=== PATIENT | male | born 1960 | race Caucasian/White ===

== ENCOUNTER 2018-03-07 07:16 | Day surgery (SDC) | payer MEDICARE ==
[~2018-03-07] VITALS: Ht 195.6 cm; Wt 141.3 kg
[~2018-03-07 07:16] MED LIST: ACET325T38 PO; ALBU8.5H2 IH; APIX5TAB2 PO; ASP81TEC PO; ASPI-875 PO; B12 IM; BLOOD PRESSURE MED PO; BNZ10T PO; CEFP500T4 PO; CEPH500C PO; CYAN100053 IJ; CYAN500T44 PO; FENT50VI18 IV; FERR240T9 PO; FLT05NA16 NSEACH; FLT11013 IH; FLT4413 INH; HYDR-1231 PO; HYDR-3583 PO; HYDR1TAB PO; KCL20TCR PO; LORA10TA2 PO; MAGN400C PO; METH4TAB PO; NF-VAL40T PO; OSLT75C PO; OXYC-109 PO; POTA99TA15 PO; PRD50T PO; Potassium; RT-ALBUINH IH; SULF1TAB38 PO; TRM50T PO; VLS80C PO; [UNRECOGNIZED DRUG - CODE] SQ; [UNRECOGNIZED DRUG - CODE] SQ; [UNRECOGNIZED DRUG - OTHER] PO
[2018-03-07] MEDS ORDERED: LIDOCAINE 1% INJ 20 ML 20 ML VIAL ONE (07:18)
[2018-03-07 07:19] VITALS: BP 163/100
--- OUTSIDE RECORDS SUMMARY | 2018-03-07 07:51 | XMS REPORT | Encounter Summary ---
Author Author [facility] Organization [facility] Address Unknown Phone Unavailable Care Team Providers Care Pipe Stripper Name Role Phone Pedrito Dubois MD PCP Reason for Visit * Auth/Cert Status Reason Specialty Diagnoses / Referred By Referred To Procedures Contact Contact Diagnoses chest pain Chest pain Chest pain Encounter Details Date Type Department Care Team Description 02/01/2018 [facility] Amber Perla MD Hypertension, unspecified - Encounter Hospital [id number] [facility] type (Primary Dx); 02/02/2018 [address] [facility] [address] Chest pain on breathing; [place] [address] [place] [address] Other chest pain; [phone] Asymptomatic PVD (peripheral vascular disease) (HCC); Chronic anticoagulation; Chronic hypokalemia; History of DVT (deep vein thrombosis); Essential hypertension; Normocytic anemia; Pulmonary nodules; Venous insufficiency (chronic) (peripheral) Social History Tobacco Use Types Packs/Day Years Used Date Never Smoker Smokeless Tobacco: Never Used Alcohol Use Drinks/Week oz/Week Comments No Sex Assigned at Date Recorded Not on file as of this encounter Last Filed Vital Signs Vital Sign Reading Time Taken Blood Pressure 179/96 02/02/2018 12:05 PM RADIO DIRECTOR Pulse 95 02/02/2018 11:59 AM RADIO DIRECTOR Temperature 36.8 C (98.2 F) 02/02/2018 11:59 AM RADIO DIRECTOR Respiratory Rate 18 02/02/2018 11:59 AM RADIO DIRECTOR Oxygen Saturation 97% 02/02/2018 11:59 AM RADIO DIRECTOR Inhaled Oxygen - - Concentration Weight 149.7 kg (330 lb) 02/01/2018 4:42 AM RADIO DIRECTOR Height 200.7 cm (6' 7") 02/01/2018 4:42 AM RADIO DIRECTOR Body Mass Index 37.18 02/01/2018 4:42 AM RADIO DIRECTOR in this encounter Discharge Summaries * Marcela Brown FNP - 02/01/2018 4:04 PM RADIO DIRECTOR Formatting of this note may be different from the original. Cardiology Discharge Summary Admitting physician: Amber Perla MD Date of admission: 02/01/2018 PCP: Pedrito Dubois MD Date of discharge: 02/02/18 Chief complaint: CP HOSPITAL COURSE We are discharging Milind Jon from [facility] today. As you know, he is a 57 y.o. male with h/o recurrent DVT- prior stenting (16 procedures in the past), s/p IVC filter, on eliquis for this, Also he has h/o Crohn's with frequent diarrhea, chronic hypokalemia on potassium supplementation , s/p implantable loop recorder- for 3 years (no pathology), and heparin induced thrombocytopenia. He presented with CP. Around 10 pm while riding in a car, he developed mid back pain with radiation toward his chest and down his left arm. He described it as pressure and rated it 7/10. He was not SOA initially but felt somewhat SOA later. He thinks the CP was worse with body movement and with taking a deep breath. It has been constant. CTA chest was negative for central or segmental PE. The aorta was normal in caliber without evidence for dissection. Troponin <0.01, 0.02, 0.02. NTPROBNP 340. He received ASA initially and was given fentanyl 50 mcg X3, Dilaudid 0.5 mg X2 , nitro X3, IV toradol, ibuprofen, and tylenol at intervals during admission with no reported relief. He was hypokalemic and his potassium was supplemented. He stated he is physically active, remodeling a house and exercises with weights and on TM for 35 minutes without CP or SOA. He did exercise couple days ago and did not have CP or SOA then. 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 He reportedly had a cath a few years ago and did not require stents. An echocardiogram showed normal left ventricular size and systolic function, with an estimated ejection fraction of 60%, no significant valvular abnormalities. MPI demonstrated no ischemia and no regions of infarction, low normal LVEF at 49 % at rest, normal augmentation of LVEF to 54% with vasodilation stress, coronary artery calcium score of 6. He was noted to be hypertensive and cozaar was increased from 25 mg to 50 mg po daily. His BP was slightly improved on d/c and he was asked to monitor BP as OP. There was no cardiac or GI etiology of his discomfort. The hospitalist saw patient in consult and felt pain was musculoskeletal. Skelaxin was prescribed for OP use. Wound care rounded on patient and dressed left posterior calf venous ulcer. They provided recommendations for OP care and management, encouraging follow up with primary care and keeping scheduled OP appointment with vascular surgery. He was felt stable for discharge today. He was dismissed in the company of a friend. Principal Problem: Chest pain Active Problems: Asymptomatic PVD (peripheral vascular disease) ([facility]) Venous insufficiency (chronic) (peripheral) History of DVT (deep vein thrombosis) Chronic anticoagulation Normocytic anemia Chronic hypokalemia Pulmonary nodules Essential hypertension 1. Atypical CP - normal echo and non-ischemic MPI PET - continue ASA - LDL 33, TSH normal - consult hospitalist today due to ongoing pain of unclear etiology but suspect musculoskeletal; Hospitalist has prescribed skelaxin for OP use. - Pain is non-cardiac and not likely GI - will d/c today. 2. Venous insufficiency with venous ulcers - wound care consult appreciated - continue OP follow up with Dr Dubois in [facility] 3. H/o DVT, s/p IVC filter - continue Eliquis - CTA chest negative for PE 4. Normocytic anemia -baseline is unknown -outpatient f/u with PCP 5. Chronic Hypokalemia secondary to Crohn's disease - admission K 3.0 - K replaced - continue home replacement regimen 6. Pulmonary nodules - incidental finding on CTA chest - he denies smoking - defer to PCP for CT chest in one year/routine follow up 7. PVD - report of multiple LE stents - [place] [facility] [place]aud[place] 8. HTN - continue up-titrated losartan and keep BP diary - too early to see if improvement in BP since only received one dose of new strength IMAGING/PROCEDURES/LABS DURING THIS HOSPITALIZATION CTA chest 02/01/2018 There is adequate opacification of the pulmonary arteries. No central intravascular filling defects are appreciated. There is no evidence for central pulmonary embolus. The aorta is normal in caliber without evidence for dissection. The heart is normal in size without pericardial effusion. The visualized thyroid gland is within normal limits. No lymphadenopathy is seen. The central airways are patent. There is no focal consolidation, pleural effusion or pneumothorax. A few 3 mm or less lung nodules are noted, for example middle lobe lung nodule on image 95 series 5. Images of the upper abdomen demonstrate cholecystectomy clips. Degenerative changes are seen in the spine. IMPRESSION No evidence for central pulmonary embolus. A few 3 mm or less lung nodules are noted. According to the 2017 Fleischner Society Guidelines for Management of Incidental Pulmonary Nodules Detected on CT, for low risk patients (minimal or absent history of smoking or other known risk factors), non-calcified solid nodules less than or equal to 6 mm in diameter do not require routine follow up. If risk factors exist or the nodule has an upper lobe location, a follow up CT is optional in 12 months. If unchanged at that time, no further follow up is needed. A preliminary report which was provided by [employer] was Reviewed Echocardiogram Date: 02/01/2018 1. Normal left ventricular size and systolic function, with an estimated ejection fraction of 60%. 2. No significant valvular abnormalities. Stress test Date: 02/01/2018 No ischemia and no regions of infarction. Low normal LVEF at 49% at rest. Normal augmentation of LVEF to 54% with vasodilation stress. The coronary artery calcium score is 6. Results communicated verbally at time of dictation. [facility] laboratory findings during this hospitalization: Most Recent Result within the last 7 days Lab Units 02/02/18 0840 02/02/18 0120 02/01/18 1315 HEMOGLOBIN g/dL -- 9.8* -- -- HEMATOCRIT % -- 30* -- -- WBC TH/uL -- 3.72* -- -- PLATELET COUNT TH/uL -- 150 -- -- CREATININE mg/dL -- 0.9 -- -- BLOOD UREA NITROGEN mg/dL -- 14 -- -- POTASSIUM MEQ/L 3.6 3.5 < > -- THYROID STIMULATING HORMONE uIU/mL -- -- -- 1.10 CHOLESTEROL mg/dL -- -- -- 84* HDL CHOLESTEROL mg/dL -- -- -- 35* LDL CHOLESTEROL mg/dL -- -- -- 33 TRIGLYCERIDES mg/dL -- -- -- 80 < >=values in this interval not displayed. PHYSICAL EXAM BP (!) 155/80 (BP Location: Left arm, Patient Position: Supine) | Pulse 89 | Temp 36.4 C (97.6 F) (Oral) | Resp 18 | Ht 2.007 m (6' 7") | Wt (!) 149.7 kg (330 lb) | SpO2 95% | BMI 37.18 kg/m Physical Exam Constitutional: He is oriented to person, place, and time. He appears well- developed and well-nourished. Obese by BMI. HENT: Head: Normocephalic and atraumatic. Eyes: Conjunctivae are normal. Neck: Normal range of motion. Cardiovascular: Normal rate, regular rhythm, normal heart sounds and intact distal pulses. No murmur heard. Pulses: Dorsalis pedis pulses are 2+ on the right side, and 1+ on the left side. Pulmonary/Chest: Effort normal and breath sounds normal. He has no rales. Abdominal: Soft. There is no tenderness. Musculoskeletal: Normal range of motion. Neurological: He is alert and oriented to person, place, and time. Skin: Skin is warm and dry. No rash noted. Discoloration to lower legs consistent with venous insufficiency. Venous ulcer left lateral/posterior calf with dressing. Venous ulcer scabbed and dry anterior left LE. Psychiatric: He has a normal mood and affect. His behavior is normal. Nursing note and vitals reviewed. DISCHARGE INSTRUCTIONS Discharge medications: Medication List START taking these medications metaxalone 800 MG tablet Commonly known as: SKELAXIN 400 mg, Oral, 3 times daily PRN CHANGE how you take these medications losartan 25 MG tablet Commonly known as: COZAAR 50 mg, Oral, Daily What changed: how much to take CONTINUE taking these medications apixaban 5 mg tablet Commonly known as: ELIQUIS 5 mg, Oral, 2 times daily aspirin 81 MG EC tablet 81 mg, Oral, Daily KLOR-CON M20 20 MEQ tablet Generic drug: potassium chloride 40 mEq, Oral, 3 times daily with meals Where to Get Your Medications These [facility] [id number] [id number] Hours: Tuesday-Tuesday 9:00am-5:30pm metaxalone 800 MG tablet Information about where to get these medications is not yet available Ask your nurse or doctor about these medications losartan 25 MG tablet Condition at discharge: Stable Disposition: home Follow up: PCP in 1 week; 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 Cardiac rehabilitation ordered: Cardiac rehabilitiation was not appropriate for this patient and was not ordered. Discharge coordination time: Greater than 30 minutes. This patient is being discharged in collaboration with Dr. Susan Mims Treatment goals, progress and next steps, as above, were discussed and mutually agreed upon with the patient/family. We appreciate the opportunity to participate in this patient's care. Please do not hesitate to contact us at [phone] should you have any questions. ABHISHEK Peralta 02/02/2018 10:56 AM in this encounter Discharge Instructions * Discharge Instr - Other Orders - Bettie Arias RN - 02/02/2018 10: 13 AM RADIO DIRECTOR Please do not miss your appointment with Vascular surgery on 02/06/2018. in this encounter Medications at Time of Discharge Medication Sig. Disp. Refills Start Date End Date apixaban (ELIQUIS) 5 mg Take 5 mg by mouth 2 tabletIndications: (two) times a day. Treatment to Prevent Recurrence of a Clot in a Deep Vein aspirin 81 MG EC tablet Take 81 mg by mouth daily. losartan (COZAAR) 25 MG Take 2 tablets (50 mg 02/02/2018 tabletIndications: high total) by mouth daily. blood pressure metaxalone (SKELAXIN) 800 Take one-half tablets 10 tablet 0 2017 MG tablet (400 mg total) by mouth 3 (three) times a day as needed. potassium chloride Take 40 mEq by mouth 3 (KLOR-CON M20) 20 MEQ (three) times a day with tablet meals. as of this encounter Progress Notes * Mansi Ahmadi RN - 02/02/2018 12:09 PM RADIO DIRECTOR I walked into patient's room to discharge him and go over his paperwork. Patient was getting changed and walking around. I decided to check his BP which was high, waited a bit and rechecked it and it was still high. I asked patient if he could stay a bit longer to recheck his blood pressure. Patient decided to go home and said he would check it at home. His ride was waiting for him downstairs. I walked with patient downstairs to the car. Patient gait was stable. * Marcela Brown, ELECTRONICS TEACHER - 02/02/2018 8:58 AM RADIO DIRECTOR Formatting of this note may be different from the original. Cardiology Progress Note Hospital Day: 1 Chief complaint: chest pain Clinical summary: Mr. Good is a 57 year old patient with h/o recurrent DVT, s/ p IVC filter, on Eliquis, and PVD with hx of prior stenting (reportedly 16 procedures in the past). Also with Crohn's with frequent diarrhea, chronic hypokalemia on potassium supplementation, s/p implantable loop recorder- for 3 years (no pathology), and heparin induced thrombocytopenia. He follows cardiology in [facility]. C/o pressure chest pain while riding in a car, with radiation from mid back to chest and down left arm. Unrelieved with IV narcotics and NTG sl x 3. Admitted (transfer from [facility]) on 02/01/18. Chronic venous ulcer to [facility] which wound care has evaluated this admission. [facility] events during this stay: 02/01/18: Negative CTA chest for PE, negative serial troponin, normal NTproBNP. Non-ischemic MPI PET, echo with normal LVSF. Potassium replaced. 02/02/18: potassium in normal range. CHANGES IN THE PAST 24 HOURS: Clinical: Pain is constant, feels like pressure, location same as on arrival; unrelieved with IV narcotics, IV toradol, or tylenol. No provoking or alleviating factors. Slept well overnight but reports he was exhausted since he was up all night the previous night. Labs/tests/procedures: 02/02/18: K 3.6, creatinine 0.9; Hgb 9.8 (admission 10.7). 02/01/18: MPI PET COMBINED TEST RESULTS: No ischemia and no regions of infarction. Low normal LVEF at 49% at rest. Normal augmentation of LVEF to 54% with vasodilation stress. The coronary artery calcium score is 6. 02/01/18: Echocardiogram IMPRESSION 1. Normal left ventricular size and systolic function, with an estimated ejection fraction of 60%. 2. No significant valvular abnormalities. EKG/Telemetry: Normal Sinus Rhythm and Telemetry was personally reviewed ASSESSMENT & PLAN: Principal Problem: Chest pain Active Problems: Asymptomatic PVD (peripheral vascular disease) (HCC) Venous insufficiency (chronic) (peripheral) History of DVT (deep vein thrombosis) Chronic anticoagulation Normocytic anemia Chronic hypokalemia Pulmonary nodules 1. CP with some typical and atypical features - normal echo and non-ischemic MPI PET - continue ASA - LDL 33, TSH normal - consult hospitalist today due to ongoing pain of unclear etiology but suspect musculoskeletal; Hospitalist has prescribed skelaxin for OP use. - Pain is non-cardiac and not likely GI - will d/c today. 2. Venous insufficiency with venous ulcers - wound care consult appreciated - continue OP follow up with Dr Dubois in [facility] 3. H/o DVT, s/p IVC filter - continue Eliquis - CTA chest negative for PE 4. Normocytic anemia -baseline is unknown -outpatient f/u with PCP 5. Chronic Hypokalemia secondary to Crohn's disease - admission K 3.0 - K replaced - continue home replacement regimen 6. Pulmonary nodules - incidental finding on CTA chest - he denies smoking - defer to PCP for CT chest in one year/routine follow up 7. 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 He appears well- developed and well-nourished. Obese by BMI. HENT: Head: Normocephalic and atraumatic. Eyes: Conjunctivae are normal. Neck: Normal range of motion. Cardiovascular: Normal rate, regular rhythm, normal heart sounds and intact distal pulses. No murmur heard. Pulses: Radial pulses are 2+ on the right side, and 2+ on the left side. Dorsalis pedis pulses are 2+ on the right side, and 1+ on the left side. Pulmonary/Chest: Effort normal and breath sounds normal. Abdominal: Soft. There is no tenderness. Musculoskeletal: Normal range of motion. He exhibits edema. Neurological: He is alert and oriented to person, place, and time. He has normal strength. Skin: Skin is warm and dry. Discoloration to lower legs consistent with venous insufficiency. Venous ulcer left lateral/posterior calf with dressing. Venous ulcer scabbed and dry anterior left LE. Psychiatric: He has a normal mood and affect. His behavior is normal. Judgment and thought content normal. Nursing note and vitals reviewed. Scheduled medications: ammonium lactate Topical BID apixaban 5 mg Oral BID aspirin 81 mg Oral Daily losartan 50 mg Oral Daily pantoprazole 40 mg Oral BID AC Infusion medications: [facility] labs: Recent Labs 02/01/18 0027 02/02/18 0120 WBC 6.22 3.72* HGB 10.7* 9.8* HCT 33* 30* PLT 197 150 Recent Labs 02/01/18 0027 02/01/18 0715 02/01/18 1805 02/01/18 2239 02/02/18 0120 02/02/18 0840 NA 141 -- -- -- 139 -- K 3.1* 3.0* 3.2* 3.3* 3.5 3.6 CL 101 -- -- -- 104 -- CO2 30 -- -- -- 28 -- BUN 16 -- -- -- 14 -- CREAT 1.0 -- -- -- 0.9 -- GLU 118* -- -- -- 122* -- Most Recent Result within the last 7 days Lab Units 02/01/18 0027 ALKALINE PHOSPHATASE IU/L 46 PROTEIN TOTAL SERUM g/dL 7.4 ALBUMIN g/dL 3.9 ALANINE AMINOTRANSFERASE IU/L 21 ASPARTATE AMINOTRANSFERASE IU/L 33 Most Recent Result within the last 7 days Lab Units 02/01/18 1315 02/01/18 0950 02/01/18 0715 02/01/18 0027 TROPONIN ng/mL 0.02 0.02 0.02 <0.01 NTPROBNP pg/mL -- -- -- 340 Lab Results Component Value Date GLU 122 (H) 02/02/2018 GLU 118 (H) 02/01/2018 * Kari Richardson RN - 02/01/2018 7:00 PM RADIO DIRECTOR Formatting of this note may be different from the original. 02/01/18 1155 Wound Venous Ulcer Leg Lower Posterior Date First Assessed/Time First Assessed: 02/01/18 1145 Present on hospital admission?: Yes Primary Wound Type: Venous Ulcer Location: Leg Lower Wound Location Orientation: Posterior Wound Image Dressing Status Dressing changed;Other (Comment) (Telfa and gauze removed - placed by facility POA) Non-Staged Extent of Tissue Involvement Full thickness, skin Wound Site Assessment Clean;Other (Comment) (non-granulating) Shape Round/oval Wound Length (cm) 1.2 cm Wound Width (cm) 2 cm Wound Depth (cm) 0.5 cm Wound Surface Area (cm^2) 2.4 cm^2 Wound Volume (cm^3) 1.2 cm^3 Edges Unattached edges;Epibole (rolled edges) Drainage Description Serosanguineous Drainage Amount Scant Carolyn-wound Assessment Flaky;Hyperpigmented;Painful; Other (Comment) (Hemosiderin staining, thickened fibrotic skin) Interventions Cleansed Dressing Type Protective film (ex: barrier wipes, skin prep);Foam/Silicone combo (ex: Mepilex) Dressing Changed Changed Next Dressing Change Due 02/02/18 Initial Wound Assessment Chief Complaint/Reason for Consult: venous stasis ulcers on the LLE History of Present Illness: Pt reports chronic venous insufficiency. Has had ulcer for past 2+ weeks. Has had ulcer in same location previous, heals and re- opens. Pt has appt w/vascular surgeon (Pt does not recall name) next Tuesday, . Currently being followed by Dr Dubois in [place], [place]. Focused Review of Systems: Active Problems: Chest pain Assessment: See assessment above Plan/Recommendation: Reduce layers of linen - Single layer draw sheet. IF incontinent use white Covidien chux. Float heels using 2-pillow + rolled blanket support or Pressure Redistribution Boot (Waffle Ehob) Elevate lower legs due to edema Dressing changes: Daily application of Hydrogel (on par cart). Cleanse w/NS. Gently pat dry. Apply hydrogel to wound base. Cover w/Mepilex border dressing. Keep lower legs elevated and heels floated. Please contact Wound Care for deterioration in wound status or any new concerns. Education: Pressure ulcer prevention, Venous leg ulcers/compression therapy Kari Richardson RN in this encounter H&P Notes * Susan Mims MD - 02/01/2018 7:52 AM RADIO DIRECTOR Formatting of this note may be different from the original. [facility] Comprehensive Initial Note Date: 02/01/2018 Established [facility] patient: No PCP: Pedrito Dubois MD Chief complaint: CP Note generated by: Anca MEEK HPI: Mr. Good is a 57 year old patient with h/o recurrent DVT- prior stenting ( 16 procedures in the past)- recurrent DVT, s/p IVC filter, on eliquis for this , Also with Crohn's with frequent diarrhea, chronic hypokalemia on potassium supplementation, s/p implantable loop recorder- for 3 years (no pathology), and heparin induced thrombocytopenia. He presented to ER with CP. He states around 10 pm while riding in a car, he developed mid back back with radiation toward his chest and down his left arm. He describes it as pressure and rates it at 7. He states he was not SOA initially but feels somewhat SOA currently. He thinks the CP was worse with body movement and with taking a deep breath. It has been constant. CTA chest was negative for central or segmental PE. Troponin <0.01, 0.02. NTPROBNP 340. He received ASA initially and was given fentanyl 50 mcg X3, Dilaudid 0.5 mg X2 , nitro X3 through the night. He states medications given for CP did not help at all and he still rates his CP at 7. He states he is physically active. He has been remodeling a house and exercises with weight and on TM for 35 minutes without CP or SOA. He did exercise couple days ago and did not have CP or SOA then. 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 The patient states he had a cath a few years ago and did not require stents. He states he has stents in his legs which were placed by Dr. Brown from [facility]. The patient states he has chronic venous insufficiency and LE edema with venous ulcers in the LLE which are managed by his PCP. He states his LLE get edematous with walking but he denies claudication symptoms. He states his cholesterol is low and he has not been on lipid lowering medications. He also states that periodically he gets a phone call form the "poople who manage the loop recorder " with advise to go to ER for evaluation. He states he has gone to ER but does not recall being told about arrhthymias at the time of his prior evaluations. Past Medical History: Diagnosis Date Asthma Crohn's disease (HCC) DVT (deep venous thrombosis) (HCC) left leg Past Surgical History: Procedure Laterality Date ABDOMINAL SURGERY CARDIAC SURGERY CHOLECYSTECTOMY COLON SURGERY FRACTURE SURGERY VASCULAR SURGERY Social History: reports that he has never smoked. He has never used smokeless tobacco. He reports that he does not drink alcohol. His drug history is not on file. Family History Problem Relation Age of Onset Aneurysm Mother Lung cancer Father Family History of Premature CAD: no Review of Systems Respiratory: Positive for shortness of breath. Cardiovascular: Positive for chest pain and leg swelling. Gastrointestinal: Positive for diarrhea. Musculoskeletal: Positive for back pain. Skin: Positive for wound (two venous stasis ulcers on the LLE). Allergies Allergen Reactions Morpholine Analogues Rash Penicillins Rash Alupent [Metaproterenol] Heparin Analogues HIT Medications: aspirin 81 mg Oral Daily aspirin 81 mg Oral Daily losartan 25 mg Oral Daily LABS & IMAGING: Ct Angio Chest Result Date: 02/01/2018 No evidence for central pulmonary embolus. A few 3 mm or less lung nodules are noted. According to the 2017 Fleischner Society Guidelines for Management of Incidental Pulmonary Nodules Detected on CT, for low risk patients (minimal or absent history of smoking or other known risk factors), non-calcified solid nodules less than or equal to 6 mm in diameter do not require routine follow up. If risk factors exist or the nodule has an upper lobe location, a follow up CT is optional in 12 months. If unchanged at that time, no further follow up is needed. A preliminary report which was provided by [employer] was reviewed. EKG: ST, 102 Telemetry: SR Most Recent Result within the last 7 days Lab Units 02/01/18 0027 WBC TH/uL 6.22 HEMOGLOBIN g/dL 10.7* HEMATOCRIT % 33* PLATELET COUNT TH/uL 197 Recent Labs 02/01/18 0027 NA 141 CL 101 CO2 30 BUN 16 CREAT 1.0 Most Recent Result within the last 7 days Lab Units 02/01/18 0715 02/01/18 0027 POTASSIUM MEQ/L 3.0* 3.1* Most Recent Result within the last 7 days Lab Units 02/01/18 0027 GLUCOSE mg/dL 118* Most Recent Result within the last 7 days Lab Units 02/01/18 0027 ALKALINE PHOSPHATASE IU/L 46 PROTEIN TOTAL SERUM g/dL 7.4 ALBUMIN g/dL 3.9 ALANINE AMINOTRANSFERASE IU/L 21 ASPARTATE AMINOTRANSFERASE IU/L 33 Most Recent Result within the last 7 days Lab Units 02/01/18 0715 02/01/18 0027 TROPONIN ng/mL 0.02 <0.01 Lab Results Component Value Date NTPROBNP 340 02/01/2018 PHYSICAL EXAM: Temp: [36.3 C (97.4 F)-36.7 C (98 F)] 36.5 C (97.7 F) Pulse: [87-100] 96 Resp: [11-22] 16 BP: (133-171)/(68-91) 149/86 Physical Exam Constitutional: He is oriented to person, place, and time. He appears well- developed and well-nourished. Eyes: Conjunctivae are normal. Neck: Neck supple. No JVD present. Cardiovascular: Normal rate and regular rhythm. No murmur heard. Pulses: Radial pulses are 2+ on the right side, and 2+ on the left side. Posterior tibial pulses are 1+ on the right side, and 1+ on the left side. Tenderness on palpation over the chest (similar to what brought the patient to the ER) Pulmonary/Chest: Effort normal and breath sounds normal. Abdominal: Soft. Bowel sounds are normal. Musculoskeletal: He exhibits edema (2 plus LE edema, L>R). Neurological: He is alert and oriented to person, place, and time. Skin: Skin is warm and dry. Venous insufficiency skin changes in LEs, L>R, two venous stasis ulcers on the LLE. Psychiatric: He has a normal mood and affect. His behavior is normal. Judgment and thought content normal. Nursing note and vitals reviewed. ASSESSMENT & PLAN: Active Problems: Chest pain 1. CP with some typical and atypical features -proceed with echo and MPI -continue ASA -check FLP, hemoglobin A1C and TSH 2. Venous insufficiency with venous ulcers -wound care consult 3. H/o DVT, s/p IVC filter -eliquis on hold in case invasive evaluation is needed -CTA chest was negative for PE 4. Normocytic anemia -baseline is unknown -outpatient f/u with PCP 5. Hypokalemia -K is replaced 6. Pulmonary nodules -he denies smoking -defer to the PCP the need for a CT chest in one year Electronically signed by Belem Palmer RN ANP, 02/01/2018 9:26 AM STAFF ATTESTATION: I, Susan Mims MD, have seen and examined this patient. I have reviewed and edited the details outlined by my colleague FANTASMA Storm in this note as needed. I have modified the above to reflect my assessment and plan. I have performed an independent review of the following: EKG Telemetry I have discussed the case with the following: Family in this encounter Consult Notes * MiltonMeryl, DO - 02/02/2018 9:49 AM RADIO DIRECTOR Associated Order(s): IP CONSULT TO HOSPITALIST Formatting of this note may be different from the original. [facility] RELIEF MATE Hospitalist - History and Physical ENCOUNTER DATE: 02/02/2018 [facility] Milind Jon; MR#[id number]; 57 y.o.; Date of :1960 CC: chest pain Current History HISTORY OF PRESENT ILLNESS: Mr. Milind Jon is nice gentleman who presents to the hospital with chest pain. He was evaluated by the cardiology and felt to have a normal stress test without findings relating to acute coronary syndrome. The patient has reproducible chest wall pain, which I feel is a degree of costochondritis versus sternal pain. We are attempting a trial of anti-inflammatories with Toradol today and Skelaxin and if so improved, would anticipate discharge from the hospital later today for further outpatient workup. The patient has no signs of pulmonary, gastrointestinal disease associated with his symptoms and suspect a musculoskeletal etiology, full cardiac workup has been performed per their notations. He also had a CTA that was negative for PE or dissection prior to my evaluation. Patient reports he has moderate to severe pain, it occasionally goes to his back and to his arms. 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 REVIEW OF SYSTEMS: A 10 point review of systems was performed and was negative other than what was mentioned in the HPI. Past History PAST MEDICAL HISTORY: Past Medical History: Diagnosis Date Asthma Asymptomatic PVD (peripheral vascular disease) ([facility]) 02/02/2018 Chronic anticoagulation 02/02/2018 Crohn's disease (HCC) DVT (deep venous thrombosis) (HCC) left leg History of DVT (deep vein thrombosis) 02/02/2018 Pulmonary nodules 02/02/2018 Venous insufficiency (chronic) (peripheral) 02/02/2018 PAST SURGICAL HISTORY: Past Surgical History: Procedure Laterality Date ABDOMINAL SURGERY CARDIAC SURGERY CHOLECYSTECTOMY COLON SURGERY FRACTURE SURGERY VASCULAR SURGERY ALLERGIES: Allergies Allergen Reactions Morpholine Analogues Rash Penicillins Rash Alupent [Metaproterenol] Heparin Analogues HIT MEDICATIONS: Prescriptions Prior to Admission Medication Sig Dispense Refill Last Dose potassium chloride (KLOR-CON M20) 20 MEQ tablet Take 40 mEq by mouth 3 ( three) times a day with meals. apixaban (ELIQUIS) 5 mg tablet Take 5 mg by mouth 2 (two) times a day. 01/31/2018 at Unknown time aspirin 81 MG EC tablet Take 81 mg by mouth daily. 01/31/2018 at Unknown time losartan (COZAAR) 25 MG tablet Take 25 mg by mouth daily. 01/31/2018 at Unknown time SOCIAL HISTORY: Social History Substance Use Topics Smoking status: Never Smoker Smokeless tobacco: Never Used Alcohol use No Extended Emergency Contact Information Primary Emergency Contact: Noé Jon [facility] Relation: Daughter FAMILY HISTORY: Family History Problem Relation Age of Onset Aneurysm Mother Lung cancer Father Exam Temp: [36.3 C (97.4 F)-36.8 C (98.3 F)] 36.4 C (97.6 F) Pulse: [83-91] 89 Resp: [18] 18 BP: (138-164)/(64-84) 155/80 SpO2: 95 % Wt Readings from Last 3 Encounters: 02/01/18 (!) 149.7 kg (330 lb) 01/31/18 (!) 149.7 kg (330 lb) O2 Device: None (Room air) I/O last 3 completed shifts: In: 100 [P.O.:100] Out: - No intake/output data recorded. GEN: Alert and oriented x 3. NAD Eyes: EOMI, PERRL, anicteric ENT: . Moist mucous membranes; No LAD, JVD or carotid bruits. LUNGS: CTA bilaterally. Good respiratory effort bilaterally; ; no wheezes, rhonchi, rales or crackles. CV: Regular rate, regular rhythm. No murmur, rubs or gallops; Normal S1S2 Chest wall : Reproducible chest wall pain. ABD: Soft, nontender, nondistended, normoactive bowel sound. No hepatosplenomegaly. No masses. EXT: Warm, dry to touch without edema. Normal cap refill Peripheral pulses 2+ bilaterally. SKIN: No rashes or jaundice. LYMPH: No anterior/posterior cervical or supraclavicular lymphadenopathy NEURO: Cranial nerves II-XII grossly intact. No focal motor/sensory deficits. Strength 5/5 bilaterally. Speech is fluent, follows commands easily, PSYCH: Normal mood and affect. Diagnostics LABORATORY AND X-RAY DATA: Most Recent Result within the last 7 days Lab Units 02/02/18 0120 02/01/18 0027 WBC TH/uL 3.72* 6.22 HEMOGLOBIN g/dL 9.8* 10.7* HEMATOCRIT % 30* 33* PLATELET COUNT TH/uL 150 197 Most Recent Result within the last 7 days Lab Units 02/02/18 0840 02/02/18 0120 SODIUM MEQ/L -- 139 POTASSIUM MEQ/L 3.6 3.5 CHLORIDE MEQ/L -- 104 CARBON DIOXIDE MEQ/L -- 28 BLOOD UREA NITROGEN mg/dL -- 14 CREATININE mg/dL -- 0.9 CALCIUM mg/dL -- 7.6* GLUCOSE mg/dL -- 122* Most Recent Result from last 24 hours Lab Units 02/02/18 0120 GLUCOSE mg/dL 122* Most Recent Result within the last 7 days Lab Units 02/01/18 0027 ALBUMIN g/dL 3.9 PROTEIN TOTAL SERUM g/dL 7.4 BILIRUBIN TOTAL mg/dL 0.6 ALKALINE PHOSPHATASE IU/L 46 ALANINE AMINOTRANSFERASE IU/L 21 ASPARTATE AMINOTRANSFERASE IU/L 33 Most Recent Result within the last 7 days Lab Units 02/01/18 1315 02/01/18 0950 02/01/18 0715 TROPONIN ng/mL 0.02 0.02 0.02 I have personally reviewed the lab results documented here. Imaging: )Ct Angio Chest Result Date: 02/01/2018 No evidence for central pulmonary embolus. A few 3 mm or less lung nodules are noted. According to the 2017 Fleischner Society Guidelines for Management of Incidental Pulmonary Nodules Detected on CT, for low risk patients (minimal or absent history of smoking or other known risk factors), non-calcified solid nodules less than or equal to 6 mm in diameter do not require routine follow up. If risk factors exist or the nodule has an upper lobe location, a follow up CT is optional in 12 months. If unchanged at that time, no further follow up is needed. A preliminary report which was provided by [employer] was reviewed. I have personally reviewed the results of the imaging studies above. Assessment and Plan Active Hospital Problems *Chest pain Asymptomatic PVD (peripheral vascular disease) (HCC) Venous insufficiency (chronic) (peripheral) History of DVT (deep vein thrombosis) Chronic anticoagulation Normocytic anemia Chronic hypokalemia Pulmonary nodules I feel patient is medically stable for discharge. P.r.n. muscle relaxer as appropriate and [id number] anti-inflammatories can be continued. I did write IV Toradol while in the hospital. If this is helpful, will suggest ibuprofen as an outpatient basis. His formal cardiac workup and his other medical problems, he will continue his home dose of Eliquis. The remainder of his medical problems has been stable and if cardiology agrees, I feel he is appropriate for discharge home. Diet: Diet and Nourishments Diet Diet-Low Fat/Chol, 2 gm Na (Simply Healthy) Frequency: Effective Now Number of Occurrences: Until Specified Order Questions: Base Diet 38 DVT proph: VTE Orders apixaban (ELIQUIS) tablet 5 mg 2 times daily Early ambulation Until discontinued Early ambulation Until discontinued Full Code Meryl Rose, 02/02/2018 9:49 AM in this encounter Miscellaneous Notes * Discharge Planning - Bettie Arias RN - 02/02/2018 10:12 AM RADIO DIRECTOR Discharge Planning Interventions General Discharge Note Pt has appt w/vascular surgeon (Pt does not recall name) next Tuesday, 2017. * Plan of Care - Mansi Ahmadi RN - 02/02/2018 10:02 AM RADIO DIRECTOR Problem: Risk for Falls Goal: Patient will not fall during their Inpatient stay Outcome: Progressing Up ad barron. Steady gait. Alert and oriented x4. Problem: Impaired Skin Integrity Goal: Demonstration of healing or closure of Wound Outcome: Progressing Dressing changed and wound was cleaned. Cream applied to both legs for dryness. * Plan of Care - Concetta Zavala RN - 02/01/2018 9:33 PM RADIO DIRECTOR Problem: Risk for Falls Goal: Patient will not fall during their Inpatient stay Outcome: Progressing Problem: Knowledge Deficit Goal: Patient/family demonstrates understanding of disease proces, treatment plan, medications, and discharge instructions Outcome: Progressing Problem: Inadequate Coping Goal: Demonstrates ability to cope effectively Outcome: Progressing * Plan of Care - Roro Kohler RN - 02/01/2018 2:07 PM RADIO DIRECTOR Problem: Knowledge Deficit Goal: Patient/family demonstrates understanding of disease proces, treatment plan, medications, and discharge instructions Outcome: Progressing Problem: Hemodynamic Status Goal: STG - Respiratory rate and effort will be within normal limits for the patient Outcome: Progressing Goal: Urine output is 30 mL/hour or more Outcome: Progressing Goal: Vital signs and blood gases are within patient's accepted norms Outcome: Progressing Goal: ECG Rhythm within patient's accepted norms Outcome: Progressing Goal: Absence of cardiac pain/presenting symptoms Outcome: Progressing Problem: Inadequate Coping Goal: Demonstrates ability to cope effectively Outcome: Progressing Goal: Inform patient of all treatment care prior to providing care Outcome: Progressing Problem: Impaired Skin Integrity Goal: Demonstration of healing or closure of Wound Outcome: Progressing * Plan of Care - Concetta Zavala RN - 02/01/2018 5:25 AM RADIO DIRECTOR Problem: Risk for Falls Goal: Patient will not fall during their Inpatient stay Outcome: Progressing in this encounter Plan of Treatment Not on fileas of this encounter Procedures Procedure Name Priority Date/Time Associated Diagnosis Comments EKG OUTSIDE RECORD 02/06/2018 Results for this 7:43 AM RADIO DIRECTOR procedure are in the results section. POTASSIUM Timed 02/02/2018 Results for this 8:40 AM RADIO DIRECTOR procedure are in the results section. COMPLETE BLOOD COUNT Routine 02/02/2018 Results for this 1:20 AM RADIO DIRECTOR procedure are in the results section. BASIC METABOLIC PANEL Routine 02/02/2018 Results for this 1:20 AM RADIO DIRECTOR procedure are in the results section. POTASSIUM Timed 02/01/2018 Results for this 10:39 PM RADIO DIRECTOR procedure are in the results section. GLUCOSE POC Routine 02/01/2018 Results for this 8:41 PM RADIO DIRECTOR procedure are in the results section. POTASSIUM Timed 02/01/2018 Results for this 6:05 PM RADIO DIRECTOR procedure are in the results section. TROPONIN Timed 02/01/2018 Results for this 1:15 PM RADIO DIRECTOR procedure are in the results section. THYROID STIMULATING Add-On 02/01/2018 Results for this HORMONE 1:15 PM RADIO DIRECTOR procedure are in the results section. T4 FREE Add-On 02/01/2018 Results for this 1:15 PM RADIO DIRECTOR procedure are in the results section. LIPID PANEL Add-On 02/01/2018 Results for this 1:15 PM RADIO DIRECTOR procedure are in the results section. HEMOGLOBIN A1C Add-On 02/01/2018 Results for this 1:15 PM RADIO DIRECTOR procedure are in the results section. ERYTHROCYTE SEDIMENTATION Add-On 02/01/2018 Results for this RATE 1:15 PM RADIO DIRECTOR procedure are in the results section. ECHO COMPLETE W DOPPLER Routine 02/01/2018 Results for this AND COLOR FLOW W CONTRAST 12:40 PM RADIO DIRECTOR procedure are in the results section. CV MPI PET PHARMOCOLOGIC Routine 02/01/2018 Results for this REST STRESS WITH CALCIUM 11:50 AM RADIO DIRECTOR procedure are in the SCORE results section. TROPONIN Timed 02/01/2018 Results for this 9:50 AM RADIO DIRECTOR procedure are in the results section. OXYGEN Routine 02/01/2018 9:38 AM RADIO DIRECTOR GLUCOSE POC Routine 02/01/2018 Results for this 8:48 AM RADIO DIRECTOR procedure are in the results section. TROPONIN STAT 02/01/2018 Results for this 7:15 AM RADIO DIRECTOR procedure are in the results section. POTASSIUM Routine 02/01/2018 Results for this 7:15 AM RADIO DIRECTOR procedure are in the results section. OXYGEN Routine 02/01/2018 6:41 AM RADIO DIRECTOR OXYGEN Routine 02/01/2018 6:41 AM RADIO DIRECTOR in this encounter Results * EKG OUTSIDE RECORD (02/06/2018 7:43 AM) Narrative Performed At Ordered by an unspecified provider. * Potassium (02/02/2018 8:40 AM) Only the most recent of 4 results within the time period is included. Potassium 3.6 3.5 - 5.3 MEQ/L [facility] Specimen Blood Performing Organization Address City/State/Zipcode Phone Number [facility] [address] [place] [address] [phone] * Complete Blood Count (02/02/2018 1:20 AM) WBC 3.72 (L) 4.00 - 11.00 TH/uL [facility] RBC 3.73 (L) 4.31 - 5.84 MIL/uL [facility] Hemoglobin 9.8 (L) 13.0 - 17.0 g/dL [facility] Hematocrit 30 (L) 40 - 50 % [facility] MCV 80 80 - 99 fL [facility] MCH 26 (L) 27 - 34 pg [facility] MCHC 33 32 - 36 % [facility] RDW 14.4 9.0 - 14.5 % [facility] Platelet Count 150 140 - 400 TH/uL [facility] MPV 11.2 9.4 - 12.3 fL [facility] Nucleated RBCs 0 0 - 0 /100 [facility] Specimen Blood Performing Organization Address [facility] Phone Number [facility] [address] [place] [address] * Basic Metabolic Panel (02/02/2018 1:20 AM) Sodium 139 133 - 147 MEQ/L [facility] Potassium 3.5 3.5 - 5.3 MEQ/L [facility] Chloride 104 96 - 112 MEQ/L [facility] Carbon Dioxide 28 20 - 32 MEQ/L [facility] Anion Gap 7 5 - 17 [facility] Calcium 7.6 (L) 8.4 - 10.5 mg/dL [facility] Glucose 122 (H) 70 - 100 mg/dL [facility] Blood Urea Nitrogen 14 7 - 26 mg/dL [facility] Creatinine 0.9 0.6 - 1.3 mg/dL [facility] GFR Male AA 106 60 - 200 [facility] Comment: LAB Chronic Kidney Disease less than 60 mL/min/1.73 sq.m Kidney failure less than 15 mL/min/1.73 sq.m GFR Male Non-AA 88 60 - 200 [facility] Comment: LAB Chronic Kidney Disease less than 60 mL/min/1.73 sq.m Kidney failure less than 15 mL/min/1.73 sq.m Specimen Blood Performing Organization Address [facility]/Zipcode Phone Number [facility] [address] [place] [address] * GLUCOSE POC (02/01/2018 8:41 PM) Only the most recent of 2 results within the time period is included. Glucose POC 106 (H) 70 - 100 mg/dL [facility] Performing Organization Address [facility] Phone Number [facility] [id number] [place] [phone] * Erythrocyte Sedimentation Rate (02/01/2018 1:15 PM) Sed Rate 18 (H) 0 - 12 mm/h [facility] Specimen Blood Performing Organization Address [facility] Phone Number [address] [address] LABORATORIES * T4 Free (02/01/2018 1:15 PM) T4 Free 1.4 0.8 - 2.2 ng/dL [facility] Specimen Blood Performing Organization Address [facility] Phone Number [address] [address] * Thyroid Stimulating Hormone (02/01/2018 1:15 PM) Thyroid Stimulating 1.10 0.47 - 4.68 uIU/mL [facility] Hormone LAB Specimen Blood Performing Organization Address [facility] Phone Number [address] [address] * Hemoglobin A1C (02/01/2018 1:15 PM) Hemoglobin A1C 5.6 4.0 - 5.6 % [facility] Comment: REGIONAL Non-diabetic LABORATORIES 4.0 - 5.6 % Prediabetes 5.7 - 6.4 % Diabetes >=6.5 % Specimen Blood Performing Organization Address [facility] Phone Number [address] [address] [phone] LABORATORIES * Lipid Panel (02/01/2018 1:15 PM) Cholesterol 84 (L) 100 - 200 mg/dL [facility] HDL Cholesterol 35 (L) 40 - 110 mg/dL [facility] Non-HDL Cholesterol 49 0 - 130 mg/dL [facility] Triglycerides 80 0 - 150 mg/dL [facility] LDL Cholesterol 33 0 - 99 mg/dL [facility] Cholesterol/HDL Ratio 2.4 0.0 - 4.5 [facility]ORATORIES Specimen Blood Performing Organization Address City/State/Zipcode Phone Number [facility] [address] [place] [address] LABORATORIES * Troponin - 3 and 6 hr (02/01/2018 1:15 PM) Only the most recent of 3 results within the time period is included. Troponin 0.02 0.00 - 0.03 ng/mL [facility] Comment: LAB Troponin ValueInterpretation 0.00 - 0.03 Healthy 0.04 - 0.12 Increased Cardiac Risk >0.12M yocardial Infarction Troponin may not become elevated until 6 to 8 hours after onset of symptoms. Specimen Blood Performing Organization Address City/[facility]/Zipcode Phone Number [facility] [address] [place] [address] [phone] * Echo Complete with Doppler and Color Flow (02/01/2018 12:40 PM) Ejection Fraction 60 % [facility] Impressions Performed At 1. Normal left ventricular size and systolic function, with an estimated PROSOLV ejection fraction of 60%. 2. No significant valvular abnormalities. Dr. Dominick Trammell MD (Electronically Signed) Final Date:01 February 2018 13:22 Narrative Performed At [facility] ECHOCARDIOGRAM REPORT [facility] Name:MILIND JON Date:02/01/2018 12:17 Chart #:[id number] : 1960 Location:[facility] IPSono: asiebert Age: 57 Gender:MReferring: AMBER PERLA MD Room #: 246-1 Fellow: Indication:Chest pain, unspecified Procedure: [id number] Complete Echo 2D/Colorflow/[id number] BP: 149 / 86HR:95Ht: 79 Wt:330BSA 2.9 : 2D ECHO MEASUREMENTS LV Diastolic Diameter Bas5.3 cm3.6-5.4LVPW Diastolic Thickness 0.9 cm0.6-1.1 LV Systolic Diameter Base4 cm2.3-4.0Aorta at Sinuses Diameter3.4 cm2.1-3.5 LA Systolic Diameter LX3.6 cm2.3-3.8Ascending Aorta Diameter 3.7 cm2.1-3.4 IVS Diastolic Thickness1 cm0.6-1.1 MITRAL VALVE DOPPLER Mitral E Point Syiqkilx24.4 cm/sMitral E to A Ratio0.87 MitralA Point Velocity 98.2 cm/s WALL SEGMENT ANALYSIS: ROUTINE LVSI : 1%FM :100 LAD: 1LCX : 1RCA : 1 FINDINGS LV Ejection Fraction: 60 Definity was injected to enhance left ventricular endocardial border definition. Normal left ventricular systolic function, with an estimated ejection fraction of 60%. Normal wall thickness. Normal wall motion. Normal left ventricular dimensions. Normal right ventricular size and systolic function. Normal right and left atrial size. Mild diastolic dysfunction - normal LA pressure with mild abnormality in LV relaxation. Normal aortic valve without regurgitation. Normal mitral valve with trivial regurgitation. Normal pulmonic valve with trivial regurgitation. Normal tricuspid valve with trivial regurgitation. Unable to accurately estimate PA pressure. No pericardial effusion. IVC is responsive to inspiration indicating normal RA pressure. Normal dimensions of the ascending aorta for age and body surface area. No intracardiac masses or thrombi. Procedure Note Interface, External Ris In - 02/01/2018 1:23 PM RADIO DIRECTOR ECHOCARDIOGRAM REPORT [facility] Name: MILIND JON Date: 02/01/2018 12:17 Chart #: [id number] : 1960 Location: [facility] Sono: kelly Age: 57 Gender: M Referring: AMBER PERLA MD Room #: 246-1 Fellow: Indication:Chest pain, unspecified Procedure: [id number] Complete Echo 2D/Colorflow/Doppler [id number] BP: 149 / 86 HR: 95 Ht: 79 Wt: 330 BSA 2.9 : 2D ECHO MEASUREMENTS LV Diastolic Diameter Bas 5.3 cm 3.6-5.4 LVPW Diastolic Thickness 0.9 cm 0.6-1.1 LV Systolic Diameter Base 4 cm 2.3-4.0 Aorta at Sinuses Diameter 3.4 cm 2.1-3.5 LA Systolic Diameter LX 3.6 cm 2.3-3.8 Ascending Aorta Diameter 3.7 cm 2.1-3.4 IVS Diastolic Thickness 1 cm 0.6-1.1 MITRAL VALVE DOPPLER Mitral E Point Velocity 85.4 cm/s Mitral E to A Ratio 0.87 Mitral A Point Velocity 98.2 cm/s WALL SEGMENT ANALYSIS: ROUTINE LVSI : 1 %FM : 100 LAD : 1 LCX : 1 RCA : 1 FINDINGS LV Ejection Fraction: 60 Definity was injected to enhance left ventricular endocardial border definition. Normal left ventricular systolic function, with an estimated ejection fraction of 60%. Normal wall thickness. Normal wall motion. Normal left ventricular dimensions. Normal right ventricular size and systolic function. Normal right and left atrial size. Mild diastolic dysfunction - normal LA pressure with mild abnormality in LV relaxation. Normal aortic valve without regurgitation. Normal mitral valve with trivial regurgitation. Normal pulmonic valve with trivial regurgitation. Normal tricuspid valve with trivial regurgitation. Unable to accurately estimate PA pressure. No pericardial effusion. IVC is responsive to inspiration indicating normal RA pressure. Normal dimensions of the ascending aorta for age and body surface area. No intracardiac masses or thrombi. IMPRESSION 1. Normal left ventricular size and systolic function, with an estimated ejection fraction of 60%. 2. No significant valvular abnormalities. Dr. Dominick Trammell MD (Electronically Signed) Final Date: 01 February 2018 13:22 Performing Organization Address City/State/Zipcode Phone Number PROSOLV * CV MPI PET (02/01/2018 11:50 AM) Ejection Fraction 49 % [facility] Calcium Score 6.3 [facility] Narrative Performed At [facility] NAME: MILIND JON :[id number] AGE: 57 GENDER:M ACCOUNT NUM:[id number] TEST:REST/STRESS REGADENOSON RUBIDIUM-82 PET/CT REPORTWITH CALCIUM SCORING TEST DATE: TEST LOCATION:J REFERRING PHYSICIAN: Susan Mims MD SUPERVISING PHYSICIAN: Alvarado Mccormick MD MEDICATIONS MEDS LAST 24 HOURS: Dilaudid, Klor-Con, ASA, Cozaar MEDS HELD LAST 24 HOURS: N/A ALLERGIES: MORPHOLINE ANALOGUES, PENICILLINS, ALUPENT [METAPROTERENOL], HEPARIN ANALOGUES HOURS SINCE LAST CAFFEINE: 24 INDICATIONS FOR TEST: Abnormal ECG, Atypical Angina REASON FOR PHARMACOLOGIC STRESS: Pet Imaging PROCEDURAL NOTE: An intravenous line was inserted and an infusion of normal saline was started. A CT scan was acquired for attenuation correction of the rest image (13 mA, 100 kVp, 2.7 secs) during end-expiration breath-holding, ECG-gating and dose modulation.This was followed by infusion of 35.0 mCi of Rb-82, 60 to 100 seconds after which resting images were acquired in list mode with ECG-gating.Following rest imaging, A total of 0.4mg regadenoson was injected intravenously over 10 seconds at a dosage of 0.08mg/ml immediately followed by a 5ml normal saline flush.At 2 minutes, 35.1 mCi of Rb-82 was infused.Peak stress images were acquired in list mode with ECG-gating, starting 30 seconds after the the beginning of the infusion of Rb-82 and continuing for 5.[address] scan was acquired for attenuation correction of the stress image (13 mA, 100 kVp, 2.7 secs) during end-expiration breath-holding.A coronary calcium score was acquired with 3 mm thick slices using a 3 mm slice to slice step. Calcium Score Protocol:High-resolution, ECG-synchronized Computed Tomography (CT) of the heart and coronary arteries was performed using a Multi-Detector Computed Tomography (MDCT) scanner.Each slice acquired was 3 mm thick using a 3 mm slice to slice step.The patients average heart rate was 86 bpm and varied over a range of 7 bpm.There were no image artifacts.. CLINICAL RESPONSE:The heart rate at rest was 92 beats per minute. After the regadenoson injection the heart rate was 105 beats per minute.The blood pressure at baseline was 152/83 mmHg.At the end of the regadenoson injection it was 160/77 mmHg.The patient experienced the following symptoms during the test: None HOLT TREADMILL SCORE: ECG Findings:The resting electrocardiogram showed sinus rhythm.Significant ST changes did not occur.There were no arrhythmias. SCINTIGRAPHIC Findings:The images were normal. All núñez thickened and contracted normally. LVEF was 49%. CT Findings:A total Agatston score is 6.3. The total Aortic Valve Calcium Score is 0. This is a limited CT scan of the chest for evaluation of the coronary artery calcification only and is not intended for any other purpose. IN SUMMARY, the clinical, electrocardiographic, and scintigraphic findings in this 57-year-old male being evaluated for possible CAD using regadenoson are as follows: 1. Clinical response:Non-Diagnostic (Regadenoson) 2. Electrocardiographic response: Non-Ischemic 3. Scintigraphic response: Non-Ischemic COMBINED TEST RESULTS: No ischemia and no regions of infarction. Low normal LVEF at 49% at rest. Normal augmentation of LVEF to 54% with vasodilation stress. The coronary artery calcium score is 6. Results communicated verbally at time of dictation. David Steinberg MD [address] [facility], [address] [place] [address] DICTATED DATE: 2018-02-01 13:37:00.0 ASSEMBLING FABRICATOR DATETIME: 2018-02-01 14:06:27.0 ACTUAL TEST TIME: PROVIDER APPROVAL DATETIME: 2018-02-01 14:30:48.0 Procedure Note Interface, External Ris In - 02/01/2018 2:34 PM RADIO DIRECTOR NAME: MILIND JON : [id number] AGE: 57 GENDER: M ACCOUNT NUM: [id number] TEST: REST/STRESS REGADENOSON RUBIDIUM-82 PET/CT REPORTWITH CALCIUM SCORING TEST DATE: TEST LOCATION: REFERRING PHYSICIAN: Susan Mims MD SUPERVISING PHYSICIAN: Alvarado Mccormick MD MEDICATIONS MEDS LAST 24 HOURS: Dilaudid, Klor-Con, ASA, Cozaar MEDS HELD LAST 24 HOURS: N/A ALLERGIES: MORPHOLINE ANALOGUES, PENICILLINS, ALUPENT [METAPROTERENOL], HEPARIN ANALOGUES HOURS SINCE LAST CAFFEINE: 24 INDICATIONS FOR TEST: Abnormal ECG, Atypical Angina REASON FOR PHARMACOLOGIC STRESS: Pet Imaging PROCEDURAL NOTE: An intravenous line was inserted and an infusion of normal saline was started. A CT scan was acquired for attenuation correction of the rest image (13 mA, 100 kVp, 2.7 secs) during end-expiration breath-holding, ECG- gating and dose modulation. This was followed by infusion of 35.0 mCi of Rb-82, 60 to 100 seconds after which resting images were acquired in list mode with ECG-gating. Following rest imaging, A total of 0.4mg regadenoson was injected intravenously over 10 seconds at a dosage of 0.08mg/ml immediately followed by a 5ml normal saline flush.At 2 minutes, 35.1 mCi of Rb-82 was infused. Peak stress images were acquired in list mode with ECG-gating, starting 30 seconds after the the beginning of the infusion of Rb-82 and continuing for 5.[address] scan was acquired for attenuation correction of the stress image (13 mA, 100 kVp, 2.7 secs) during end-expiration breath- holding. A coronary calcium score was acquired with 3 mm thick slices using a 3 mm slice to slice step. Calcium Score Protocol: High-resolution, ECG-synchronized Computed Tomography ( CT) of the heart and coronary arteries was performed using a Multi-Detector Computed Tomography (MDCT) scanner. Each slice acquired was 3 mm thick using a 3 mm slice to slice step. The patients average heart rate was 86 bpm and varied over a range of 7 bpm. There were no image artifacts.. CLINICAL RESPONSE: The heart rate at rest was 92 beats per minute. After the regadenoson injection the heart rate was 105 beats per minute. The blood pressure at baseline was 152/83 mmHg. At the end of the regadenoson injection it was 160/77 mmHg. The patient experienced the following symptoms during the test: None HOLT TREADMILL SCORE: ECG Findings: The resting electrocardiogram showed sinus rhythm. Significant ST changes did not occur. There were no arrhythmias. SCINTIGRAPHIC Findings: The images were normal. All núñez thickened and contracted normally. LVEF was 49%. CT Findings: A total Agatston score is 6.3. The total Aortic Valve Calcium Score is 0. This is a limited CT scan of the chest for evaluation of the coronary artery calcification only and is not intended for any other purpose. IN SUMMARY, the clinical, electrocardiographic, and scintigraphic findings in this 57-year-old male being evaluated for possible CAD using regadenoson are as follows: 1. Clinical response: Non-Diagnostic (Regadenoson) 2. Electrocardiographic response: Non-Ischemic 3. Scintigraphic response: Non-Ischemic COMBINED TEST RESULTS: No ischemia and no regions of infarction. Low normal LVEF at 49% at rest. Normal augmentation of LVEF to 54% with vasodilation stress. The coronary artery calcium score is 6. Results communicated verbally at time of dictation. David Steinberg MD [address], [address] [place] [address] DICTATED DATE: 2018-02-01 13:37:00.0 ASSEMBLING FABRICATOR DATETIME: 2018-02-01 14:06:27.0 ACTUAL TEST TIME: PROVIDER APPROVAL DATETIME: 2018-02-01 14:30:48.0 Performing Organization Address City/State/Zipcode Phone Number [facility] in this encounter Visit Diagnoses Diagnosis Chest pain - Primary Unspecified chest pain Hypertension, unspecified type Chest pain on breathing Painful respiration Other chest pain Asymptomatic PVD (peripheral vascular disease) (HCC) Unspecified peripheral vascular disease Chronic anticoagulation Encounter for long-term (current) use of anticoagulants Chronic hypokalemia Hypopotassemia History of DVT (deep vein thrombosis) Essential hypertension Unspecified essential hypertension Normocytic anemia Unspecified anemia Pulmonary nodules Other diseases of lung, not elsewhere classified Venous insufficiency (chronic) (peripheral) Unspecified venous (peripheral) insufficiency Admitting Diagnoses Diagnosis chest pain Chest pain Chest pain Administered Medications Medication Order MAR Action Action Date Dose Rate Site acetaminophen (TYLENOL) suppository 325-650 mg 325-650 mg, Rectal, Every 6 hours PRN, mild pain (pain score 1-3), Starting Tue02/01/18 at 0636, Administer if patient unable to tolerate oral medications. acetaminophen (TYLENOL) tablet 325-650 Given 02/01/2018 650 mg mg 20:33 RADIO DIRECTOR 325-650 mg, Oral, Every 6 hours PRN, mild pain (pain score 1-3), fever, Starting Tue02/01/18 at 0636, Do not exceed 4 GM/DAY of acetaminophen. If 65 or older do not exceed 3 GM/DAY. If chronic alcoholic do not exceed 2 GM/DAY. Given 02/02/2018 650 mg 08:06 RADIO DIRECTOR aluminum-magnesium hydroxide-simethicone (MAALOX PLUS) 400-400-40 mg/5 mL suspension 15 mL 15 mL, Oral, Every 4 hours PRN, indigestion, Starting Tue02/01/18 at 0636, Avoid if estimated glomerular filtration rate (eGFR) is less than 20 mL/minute/1.73m2. ammonium lactate (LAC-HYDRIN) 12 % Given 02/01/2018 lotion 20:35 RADIO DIRECTOR Topical, 2 times daily, First dose on Tue02/01/18 at 2100, Apply to bilateral lower legs - avoid wound. Shake lotion well before application. For topical use only. Given 02/02/2018 2 09:50 RADIO DIRECTOR application apixaban (ELIQUIS) tablet 5 mg Given 02/01/2018 5 mg 5 mg, Oral, 2 times daily, First dose on 20:33 RADIO DIRECTOR 02/01/18 at 2100 Given 02/02/2018 5 mg 08:06 RADIO DIRECTOR aspirin EC tablet 81 mg Given 02/01/2018 81 mg 81 mg, Oral, Daily, First dose on Tue 11:26 RADIO DIRECTOR 02/01/18 at 0900, DO NOT CRUSH OR CHEW. Given 02/02/2018 81 mg 08:05 RADIO DIRECTOR atropine injection 0.5-1 mg 0.5-1 mg, Intravenous, As needed, bradycardia, Starting Tue02/01/18 at 0636 docusate sodium (COLACE) capsule 100 mg 100 mg, Oral, 2 times daily PRN, stool softening, Starting Tue02/01/18 at 0636, DO NOT CRUSH OR CHEW. ibuprofen (ADVIL,MOTRIN) tablet 600 mg Given 02/01/2018 600 mg 600 mg, Oral, Once, Tue02/01/18 at 1545, 15:35 RADIO DIRECTOR For 1 dose ketorolac (TORADOL) injection 15 mg Given 02/01/2018 15 mg 15 mg, Intravenous, Once, Tue02/01/18 at 18:18 RADIO DIRECTOR 1730, For 1 dose ketorolac (TORADOL) injection 30 mg Given 02/02/2018 30 mg 30 mg, Intravenous, Every 6 hours PRN, 09:50 RADIO DIRECTOR severe pain (pain score 7-10), Starting Yenni 02/02/18 at 0942, For 2 days losartan (COZAAR) tablet 25 mg Given 02/01/2018 25 mg 25 mg, Oral, Daily, First dose on Tue 11:26 RADIO DIRECTOR 02/01/18 at 0900 losartan (COZAAR) tablet 50 mg Given 02/02/2018 50 mg 50 mg, Oral, Daily, First dose on Yenni 08:06 RADIO DIRECTOR 02/02/18 at 0900 metaxalone (SKELAXIN) tablet 400 mg Given 02/02/2018 400 mg 400 mg, Oral, 3 times daily PRN, muscle 10:35 RADIO DIRECTOR spasms, Starting Yenni 02/02/18 at 0943 miconazole nitrate (ALOE VESTA) 2 % ointment Topical, 3 times daily PRN, perineal or skin fold redness, Starting 02/01/18 at 0636, Consult wound care if no improvement within 3 days. nitroglycerin (NITROSTAT) SL tablet 0.4 Given 02/01/2018 0.4 mg mg 17:39 RADIO DIRECTOR 0.4 mg, Sublingual, Every 5 min PRN, chest pain, Starting 02/01/18 at 0636, For 3 doses, May repeat every 5 minutes for a total of 3 doses. Check BP prior to each dose. Discontinue use for SBP less than 90 mmHg. Notify physician if given. DO NOT CRUSH OR CHEW. Given 02/01/2018 0.4 mg 17:46 RADIO DIRECTOR Given 02/01/2018 0.4 mg 17:52 RADIO DIRECTOR pantoprazole (PROTONIX) EC tablet 40 mg Given 02/01/2018 40 mg 40 mg, Oral, 2 times daily before meals, 18:17 RADIO DIRECTOR First dose on 02/01/18 at 1745, DO NOT CRUSH OR CHEW. Given 02/02/2018 40 mg 08:06 RADIO DIRECTOR perflutren lipid microspheres (DEFINITY) Given 02/01/2018 3 mL 2 mL/sodium chloride 0.9% 8 ml (10 ml 12:30 RADIO DIRECTOR total) 1-10 mL, Intravenous, Once in imaging, contrast, Starting 02/01/18 at 1258, For 1 dose polyethylene glycol (GLYCOLAX) packet 17 g 17 g, Oral, Daily PRN, constipation, Starting Tue02/01/18 at 0636, Hold these medications if patient has had loose stool or diarrhea within previous 24 hours. potassium chloride (KAYCIEL) 20 mEq/15 mL solution 20-60 mEq 20-60 mEq, Oral, As needed, for potassium replacement in telemetry patients, Starting Tue02/01/18 at 0716, Give if unable to swallow potassium tablets. Administer 20 mEq for potassium level 3.6 to 3.9 mg/dL. Repeat potassium level in AM. Administer 40 mEq for potassium level 3.1 to 3.5 mg/dL. Repeat potassium level 4 hours after the last oral dose administered. Administer 60 mEq for potassium level less than or equal to 3. (20 mEq every hour for 3 doses). Repeat potassium level 4 hours after last oral dose administered. Administer only if SCr < 2 within the previous 48 hours and urine output > 60 mL for 2 hours or > 360 mL every 12 hours. potassium chloride (KLOR-CON) CR tablet Given 02/01/2018 20 mEq 20-60 mEq 14:15 RADIO DIRECTOR 20-60 mEq, Oral, As needed, for potassium replacement in telemetry patients, Starting Tue02/01/18 at 0716, Administer 20 mEq for potassium level 3.6 to 3.9 mg/dL. Repeat potassium level in AM. Administer 40 mEq for potassium level 3.1 to 3.5 mg/dL. Repeat potassium level 4 hours after last oral dose administered. Administer 60 mEq for potassium level less than or equal to 3. (20 mEq every hour for 3 doses). Repeat potassium level 4 hours after last oral dose administered. Administer only if SCr < 2 within the previous 48 hours and urine output > 60 mL for 2 hours or > 360 mL every 12 hours. DO NOT CRUSH OR CHEW. Given 02/01/2018 40 mEq 18:27 RADIO DIRECTOR Given 02/02/2018 40 mEq 03:58 RADIO DIRECTOR potassium chloride 20 mEq in 100 mL IVPB 20 mEq, Intravenous, Administer over 2 Hours, As needed, for potassium replacement in telemetry patients, Starting Tue02/01/18 at 0716, Give if unable to take oral potassium. Administer 20 mEq over 2 hours for potassium level 3.6 to 3.9 mg/dL. Repeat potassium level in AM. Administer 40 mEq over 4 hours for potassium level 3.1 to 3.5 mg/dL. Repeat potassium level 2 hours after infusion is complete. Administer 60 mEq over 6 hours for potassium level less than or equal to 3. Repeat potassium level 2 hours after infusion is complete. Administer only if SCr < 2 within the previous 48 hours and urine output > 60 mL for 2 hours or > 360 mL every 12 hours. Potassium chloride should be infused at a rate of 10 mEq/hr through a peripheral line, or at a rate of 20 mEq/hr through a central line. regadenoson (LEXISCAN) syringe 0.4 mg Given 02/01/2018 0.4 mg 0.4 mg, Intravenous, Once, Tue02/01/18 12:00 RADIO DIRECTOR at 1215, For 1 dose, Imaging, Administer of 10 seconds, followed by 5 mL normal saline flush in this encounter
--- OUTSIDE RECORDS SUMMARY | 2018-03-07 07:51 | XMS REPORT | Clinical Summary ---
Author Author [facility] Organization [facility] Address Unknown Phone Unavailable Care Team Providers Care Armhole Feller Handstitching Machine Name Role Phone Pedrito Dubois MD PCP Allergies Active Allergy Reactions Severity Noted Date Comments Metaproterenol 02/01/2018 Heparin Analogues 01/31/2018 HIT Morpholine Analogues Rash Medium 01/31/2018 Penicillins Rash Medium 01/31/2018 Current Medications Prescription Sig. Disp. Refills Start End Date Status Date apixaban (ELIQUIS) 5 mg Take 5 mg by mouth 2 Active tabletIndications: (two) times a day. Treatment to Prevent Recurrence of a Clot in a Deep Vein aspirin 81 MG EC tablet Take 81 mg by mouth Active daily. potassium chloride Take 40 mEq by mouth 3 Active (KLOR-CON M20) 20 MEQ (three) times a day with tablet meals. metaxalone (SKELAXIN) 800 Take one-half tablets 10 tablet 0 02/03/20 Active MG tablet (400 mg total) by mouth 3 18 (three) times a day as needed. losartan (COZAAR) 25 MG Take 2 tablets (50 mg 02/03/20 Active tabletIndications: high total) by mouth daily. 18 blood pressure Active Problems Problem Noted Date Asymptomatic PVD (peripheral vascular disease) (HCC) 02/02/2018 Venous insufficiency (chronic) (peripheral) 02/02/2018 History of DVT (deep vein thrombosis) 02/02/2018 Chronic anticoagulation 02/02/2018 Normocytic anemia 02/02/2018 Chronic hypokalemia 02/02/2018 Pulmonary nodules 02/02/2018 Essential hypertension 02/02/2018 Chest pain 02/01/2018 Encounters Date Type Specialty Care Team Description 02/02/2018 Pharmacy Visit Pharmacy 02/01/2018 [facility] Amber Tong MD Hypertension, unspecified - Encounter type (Primary Dx); 02/02/2018 Chest pain on breathing; Other chest pain; Asymptomatic PVD (peripheral vascular disease) (HCC); Chronic anticoagulation; Chronic hypokalemia; History of DVT (deep vein thrombosis); Essential hypertension; Normocytic anemia; Pulmonary nodules; Venous insufficiency (chronic) (peripheral) 02/01/2018 [facility] Carson Taylor PA-C Encounter 02/01/2018 Pharmacy Visit Pharmacy 02/01/2018 Procedure Pass 02/01/2018 Procedure Pass Emergency Medicine 01/31/2018 Emergency Emergency Medicine Chest pain, unspecified - type (Primary Dx); 02/01/2018 Hypokalemia; Ulcer of left lower extremity, unspecified ulcer stage (HCC) from Last 3 Months Family History Medical History Relation Name Comments Lung cancer Father Aneurysm Mother Relation Name Status Comments Father Mother Social History Tobacco Use Types Packs/Day Years Used Date Never Smoker Smokeless Tobacco: Never Used Alcohol Use Drinks/Week oz/Week Comments No Sex Assigned at Date Recorded Not on file Last Filed Vital Signs Vital Sign Reading Time Taken Blood Pressure 179/96 02/02/2018 12:05 PM MENTALLY RETARDED TEACHER Pulse 95 02/02/2018 11:59 AM MENTALLY RETARDED TEACHER Temperature 36.8 C (98.2 F) 02/02/2018 11:59 AM MENTALLY RETARDED TEACHER Respiratory Rate 18 02/02/2018 11:59 AM MENTALLY RETARDED TEACHER Oxygen Saturation 97% 02/02/2018 11:59 AM MENTALLY RETARDED TEACHER Inhaled Oxygen - - Concentration Weight 149.7 kg (330 lb) 02/01/2018 4:42 AM MENTALLY RETARDED TEACHER Height 200.7 cm (6' 7") 02/01/2018 4:42 AM MENTALLY RETARDED TEACHER Body Mass Index 37.18 02/01/2018 4:42 AM MENTALLY RETARDED TEACHER Plan of Treatment Health Maintenance Due Date Last Done Comments Hepatitis C Screen 1960 Medicare Annual Wellness 1960 Td # 1960 Colorectal Screening via 2012 Colonoscopy Zoster Vaccine# (1 of 2) 2012 Influenza Vaccine (#1) 2018 Procedures Procedure Name Priority Date/Time Associated Diagnosis Comments EKG OUTSIDE RECORD 02/06/2018 Results for this 7:43 AM MENTALLY RETARDED TEACHER procedure are in the results section. POTASSIUM Timed 02/02/2018 Results for this 8:40 AM MENTALLY RETARDED TEACHER procedure are in the results section. COMPLETE BLOOD COUNT Routine 02/02/2018 Results for this 1:20 AM MENTALLY RETARDED TEACHER procedure are in the results section. BASIC METABOLIC PANEL Routine 02/02/2018 Results for this 1:20 AM MENTALLY RETARDED TEACHER procedure are in the results section. POTASSIUM Timed 02/01/2018 Results for this 10:39 PM MENTALLY RETARDED TEACHER procedure are in the results section. GLUCOSE POC Routine 02/01/2018 Results for this 8:41 PM MENTALLY RETARDED TEACHER procedure are in the results section. POTASSIUM Timed 02/01/2018 Results for this 6:05 PM MENTALLY RETARDED TEACHER procedure are in the results section. ERYTHROCYTE SEDIMENTATION Add-On 02/01/2018 Results for this RATE 1:15 PM MENTALLY RETARDED TEACHER procedure are in the results section. T4 FREE Add-On 02/01/2018 Results for this 1:15 PM MENTALLY RETARDED TEACHER procedure are in the results section. THYROID STIMULATING Add-On 02/01/2018 Results for this HORMONE 1:15 PM MENTALLY RETARDED TEACHER procedure are in the results section. HEMOGLOBIN A1C Add-On 02/01/2018 Results for this 1:15 PM MENTALLY RETARDED TEACHER procedure are in the results section. LIPID PANEL Add-On 02/01/2018 Results for this 1:15 PM MENTALLY RETARDED TEACHER procedure are in the results section. TROPONIN Timed 02/01/2018 Results for this 1:15 PM MENTALLY RETARDED TEACHER procedure are in the results section. ECHO COMPLETE W DOPPLER Routine 02/01/2018 Results for this AND COLOR FLOW W CONTRAST 12:40 PM MENTALLY RETARDED TEACHER procedure are in the results section. CV MPI PET PHARMOCOLOGIC Routine 02/01/2018 Results for this REST STRESS WITH CALCIUM 11:50 AM MENTALLY RETARDED TEACHER procedure are in the SCORE results section. TROPONIN Timed 02/01/2018 Results for this 9:50 AM MENTALLY RETARDED TEACHER procedure are in the results section. OXYGEN Routine 02/01/2018 9:38 AM MENTALLY RETARDED TEACHER GLUCOSE POC Routine 02/01/2018 Results for this 8:48 AM MENTALLY RETARDED TEACHER procedure are in the results section. POTASSIUM Routine 02/01/2018 Results for this 7:15 AM MENTALLY RETARDED TEACHER procedure are in the results section. TROPONIN STAT 02/01/2018 Results for this 7:15 AM MENTALLY RETARDED TEACHER procedure are in the results section. OXYGEN Routine 02/01/2018 6:41 AM MENTALLY RETARDED TEACHER OXYGEN Routine 02/01/2018 6:41 [address] CT ANGIO CHEST STAT 02/01/2018 Results for this 1:18 AM MENTALLY RETARDED TEACHER procedure are in the results section. LIPASE STAT 02/01/2018 Results for this 12:27 AM MENTALLY RETARDED TEACHER procedure are in the results section. TROPONIN STAT 02/01/2018 Results for this 12:27 AM MENTALLY RETARDED TEACHER procedure are in the results section. NTPROBNP STAT 02/01/2018 Results for this 12:27 AM MENTALLY RETARDED TEACHER procedure are in the results section. COMPREHENSIVE METABOLIC STAT 02/01/2018 Results for this PANEL 12:27 AM MENTALLY RETARDED TEACHER procedure are in the results section. CBC AND DIFF (MANUAL DIFF STAT 02/01/2018 Results for this IF NECESSARY) 12:27 AM MENTALLY RETARDED TEACHER procedure are in the results section. ED PROCEDURE BASIC - ECG Routine 02/01/2018 Results for this INTERPRET 12:14 AM MENTALLY RETARDED TEACHER procedure are in the results section. ECG STAT 01/31/2018 Results for this 11:31 PM MENTALLY RETARDED TEACHER procedure are in the results section. from Last 3 Months Results * EKG OUTSIDE RECORD (02/06/2018 7:43 AM) Narrative Performed At Ordered by an unspecified provider. * Potassium (02/02/2018 8:40 AM) Only the most recent of 4 results within the time period is included. Potassium 3.6 3.5 - 5.3 MEQ/L [facility]ITALDialoggy [facility] Specimen Blood Performing Organization Address [facility] Centercode Phone Number [facility]ITALDrimmi [facility] [address] [place] [address] * Complete Blood Count (02/02/2018 1:20 AM) WBC 3.72 (L) 4.00 - 11.00 TH/uL [facility]Pros[facility] RBC 3.73 (L) 4.31 - 5.84 MIL/uL [facility]ENTER[facility] Hemoglobin 9.8 (L) 13.0 - 17.0 g/dL [facility]ENTERRome2rioS [facility] Hematocrit 30 (L) 40 - 50 % [facility] MCV 80 80 - 99 fL [facility] MCH 26 (L) 27 - 34 [address] [facility]ENT[facility] MCHC 33 32 - 36 % [facility] RDW 14.4 9.0 - 14.5 % [facility]ENTERRome[facility] Platelet Count 150 140 - 400 TH/uL [facility]ShopIgniterS [facility] MPV 11.2 9.4 - 12.3 fL [facility]ShopIgniterS [facility] Nucleated RBCs 0 0 - 0 /100 [facility]ITALDialoggy [facility] Specimen Blood Performing Organization Address [facility] Centercode Phone Number [facility]ITALDrimmi [facility] [address] [place], [place] [address] [phone] * Basic Metabolic Panel (02/02/2018 1:20 AM) Sodium 139 133 - 147 MEQ/L [facility] Potassium 3.5 3.5 - 5.3 MEQ/L [facility] Chloride 104 96 - 112 MEQ/L [facility] Carbon Dioxide 28 20 - 32 MEQ/L [facility] Anion Gap 7 5 - 17 [facility] Calcium 7.6 (L) 8.4 - 10.5 mg/dL [facility] Glucose 122 (H) 70 - 100 mg/dL [facility] Blood Urea Nitrogen 14 7 - 26 mg/dL [facility] Creatinine 0.9 0.6 - 1.3 mg/dL [facility] GFR Male AA 106 60 - 200 [facility] Comment: LAB Chronic Kidney Disease less than 60 mL/min/1.73 sq.m Kidney failure less than 15 mL/min/1.73 sq.m GFR Male Non-AA 88 60 - 200 [facility] Comment: LAB Chronic Kidney Disease less than 60 mL/min/1.73 sq.m Kidney failure less than 15 mL/min/1.73 sq.m Specimen Blood Performing Organization Address City/[facility]/Zipcode Phone Number [facility] [address] [place] [address] * GLUCOSE POC (02/01/2018 8:41 PM) Only the most recent of 2 results within the time period is included. Glucose POC 106 (H) 70 - 100 mg/dL [facility] Performing Organization Address City/[facility]/Zipcode Phone Number [facility] [address] [place] [address] * Troponin - 3 and 6 hr (02/01/2018 1:15 PM) Only the most recent of 4 results within the time period is included. Troponin 0.02 0.00 - 0.03 ng/mL [facility] Comment: LAB Troponin ValueInterpretation 0.00 - 0.03 Healthy 0.04 - 0.12 Increased Cardiac Risk >0.12M yocardial Infarction Troponin may not become elevated until 6 to 8 hours after onset of symptoms. Specimen Blood Performing Organization Address [facility] Centercoga Phone Number [facility] [address] [place] [address] * Thyroid Stimulating Hormone (02/01/2018 1:15 PM) Thyroid Stimulating 1.10 0.47 - 4.68 uIU/mL [facility] H[facility]one LAB Specimen Blood Performing Organization Address [facility] Phone Number [facility] [id number] [place] [address] [phone] * T4 Free (02/01/2018 1:15 PM) T4 Free 1.4 0.8 - 2.2 ng/dL [facility] Specimen Blood Performing Organization Address [facility] Phone Number [facility] [phone] [place] [phone] * Lipid Panel (02/01/2018 1:15 PM) Cholesterol 84 (L) 100 - 200 mg/dL [facility] HDL Cholesterol 35 (L) 40 - 110 mg/dL [facility] Non-HDL Cholesterol 49 0 - 130 mg/dL [facility] Triglycerides 80 0 - 150 mg/dL [facility] LDL Cholesterol 33 0 - 99 mg/dL [facility] Cholesterol/HDL Ratio 2.4 0.0 - 4.5 [facility] Specimen Blood Performing Organization Address [facility] Centercoga Phone Number [address] [address] [phone] LABORATORIES * Hemoglobin A1C (02/01/2018 1:15 PM) Hemoglobin A1C 5.6 4.0 - 5.6 % [facility] Comment: REGIONAL Non-diabetic LABORATORIES 4.0 - 5.6 % Prediabetes 5.7 - 6.4 % Diabetes >=6.5 % Specimen Blood Performing Organization Address [facility]/State/Zipcode Phone Number [facility] [address] [place] [address] LABORATORIES * Erythrocyte Sedimentation Rate (02/01/2018 1:15 PM) Sed Rate 18 (H) 0 - 12 mm/h [facility] Specimen Blood Performing Organization Address City/[facility]/Zipcode Phone Number [facility] [address] [place] [address] LABORATORIES * Echo Complete with Doppler and Color [...] Imaging Center Name:MILIND JON Date:02/01/2018 12:17 Chart #:[id number] : 1960 Location:[facility] IPSono: asiebert Age: 57 Gender:MReferring: AMBER TONG MD Room #: 246-1 Fellow: Indication:Chest pain, unspecified Procedure: [id number] Complete Echo 2D/Colorflow/[id number] BP: 149 / 86HR:95Ht: 79 Wt:330BSA 2.9 : 2D ECHO MEASUREMENTS LV Diastolic Diameter Bas5.3 cm3.6-5.4LVPW Diastolic Thickness 0.9 cm0.6-1.1 LV Systolic Diameter Base4 cm2.3-4.0Aorta at Sinuses Diameter3.4 cm2.1-3.5 LA Systolic Diameter LX3.6 cm2.3-3.8Ascending Aorta Diameter 3.7 cm2.1-3.4 IVS Diastolic Thickness1 cm0.6-1.1 MITRAL VALVE DOPPLER Mitral E Point Vflutllz01.4 cm/sMitral E to A Ratio0.87 MitralA Point [...] External Ris In - 02/01/2018 1:23 PM MENTALLY RETARDED TEACHER ECHOCARDIOGRAM REPORT [facility] Name: MILIND JON Date: 02/01/2018 12:17 Chart #: [id number] : 1960 Location: [facility] IP Sono: asiebert Age: 57 Gender: M Referring: AMBER TONG MD Room #: [facility]- Fellow: Indication:Chest pain, unspecified Procedure: [id number] Complete Echo 2D/Colorflow/Doppler [id number] BP: 149 / 86 HR: 95 Ht: [...] Narrative Performed At [facility] NAME: MILIND JON :[id number] AGE: 57 GENDER:M ACCOUNT NUM:[id number] TEST:REST/STRESS REGADENOSON RUBIDIUM-82 PET/CT REPORTWITH CALCIUM SCORING [...] time of dictation. David Steinberg MD [address], [address] [place] [address] DICTATED DATE: 2018-02-01 13:37:00.0 POLICE CRIME SCENE TECHNICIAN DATETIME: 2018-02-01 14:06:27.0 ACTUAL TEST TIME: PROVIDER APPROVAL DATETIME: 2018-02-01 14:30:48.0 Procedure Note Interface, External Ris In - 02/01/2018 2:34 PM MENTALLY RETARDED TEACHER NAME: MILIND JON : [id number] AGE: 57 GENDER: M ACCOUNT NUM: [id number] TEST: REST/STRESS REGADENOSON RUBIDIUM-82 PET/CT REPORTWITH CALCIUM [...] at time of dictation. David Steinberg MD [address], [address] [place] [address] DICTATED DATE: 2018-02-01 13:37:00.0 POLICE CRIME SCENE TECHNICIAN DATETIME: 2018-02-01 14:06:27.0 ACTUAL TEST TIME: PROVIDER APPROVAL DATETIME: 2018-02-01 14:30:48.0 Performing Organization Address City/State/Zipcode Phone Number [facility] * CT Angio Chest (02/01/2018 1:18 AM) Impressions Performed At No evidence for central pulmonary embolus. [place] A few 3 mm or less lung nodules are noted.According to the 2017 Fleischner Society Guidelines for [...] A preliminary report which was provided by [employer] was reviewed. Narrative Performed At Patient: BONIFACIO JON Sex#:Mario # 1960 Veena#:[id number] Location:[facility]02Accession#: [id number] Procedure Requested:[id number] CT ANGIO CHEST Reason for Exam:chest/back pain, h/o DVT, PE Exam Ordered: Exam Date/Time: Begin exam date/time: Dictation location:[place] Exam Date:02/01/2018 1:[address] ANGIO CHEST Indication: chest/back pain, h/o DVT, PE TECHNIQUE: CT angiogram of the chest was performed following the administration of nonionic intravenous contrast for evaluation of pulmonary embolus.3D MIPs were created and reviewed on an independent workstation to assist in diagnosis and clinical management.One or more of the following dose reduction techniques were utilized: -Automated exposure control (AEC) -Adjustment of mA and/or KV according to patient size -Use of iterative reconstruction technique -CT scan done according to ALARA, or ALARA/IMAGE GENTLY FINDINGS: There is adequate opacification of the pulmonary arteries.No central intravascular filling defects are appreciated.There is no evidence for central pulmonary embolus.The aorta is normal in caliber without evidence for dissection. The heart is normal in size without pericardial effusion. The visualized thyroid gland is within normal limits.No lymphadenopathy is seen. The central airways are patent.There is no focal consolidation, pleural effusion or pneumothorax.A few 3 mm or less lung nodules are noted, for example middle lobe lung nodule on image 95 series 5. Images of the upper abdomen demonstrate cholecystectomy clips. Degenerative changes are seen in the spine. Procedure Note Interface, Rad Results In - 02/01/2018 9:09 AM MENTALLY RETARDED TEACHER Patient: MILIND JON Sex#: M # 1960 Veena#: [id number] Location: [facility] AED-02 Procedure Requested: [id number] CT ANGIO CHEST Reason for Exam: chest/back pain, h/o DVT, PE Exam Ordered: 02/01/2018 0040 Exam Date/Time: 02/01/2018 0118 Begin exam date/time: 02/01/2018 0044 Dictation location: [place] Exam Date: 02/01/2018 1:[address] ANGIO CHEST Indication: chest/back pain, h/o DVT, PE TECHNIQUE: CT angiogram of the chest was performed following the administration of nonionic intravenous contrast for evaluation of pulmonary embolus. 3D MIPs were created and reviewed on an independent workstation to assist in diagnosis and clinical management. One or more of the following dose reduction techniques were utilized: -Automated exposure control (AEC) -Adjustment of mA and/or KV according to patient size -Use of iterative reconstruction technique -CT scan done according to ALARA, or ALARA/IMAGE GENTLY FINDINGS: There is adequate opacification of the pulmonary [...] A preliminary report which was provided by [employer] was reviewed. Performing Organization Address City/State/Zipcode Phone Number [facility] * NTproBNP (02/01/2018 12:27 AM) NTproBNP 340 pg/mL [facility] Comment: HOSPITAL LAB NT-proBNPReference Ranges: <50 yr<450 pg/mL 50-75 yr<900 pg/mL >75 yr <1800 pg/mL A cutoff value of 1200 pg/mL is recommended in patients 50 to 70 years of age with a GFR between 30 and 60.NT-proBNP is unreliable in patients with GFR <30. Specimen Blood Performing Organization Address City/State/Zipcode Phone Number [facility] [address] [place], [place] [id number] LAB * Lipase (02/01/2018 12:27 AM) Lipase 128 23 - 300 IU/L [facility] Specimen Blood Performing Organization Address City/[facility]/Zipcode Phone Number [address] [place] [address] LAB * Comprehensive Metabolic Panel (02/01/2018 12:27 AM) Sodium 141 133 - 147 MEQ/L [facility] Potassium 3.1 (L) 3.5 - 5.3 MEQ/L [facility] Chloride 101 96 - 112 MEQ/L [facility] Carbon Dioxide 30 20 - 32 MEQ/L [facility] Anion Gap 11 5 - 17 [facility] Calcium 7.9 (L) 8.4 - 10.5 mg/dL [facility] Glucose 118 (H) 70 - 100 mg/dL [facility] Protein Total Serum 7.4 6.0 - 8.2 g/dL [facility] Albumin 3.9 3.5 - 5.0 g/dL [facility] Alkaline Phosphatase 46 42 - 140 IU/L [facility] Alanine Aminotransferase 21Comment: ALT reference range 0 - 49 IU/L [facility] changed on 10-04-2017 HOSPITAL LAB Aspartate 33 15 - 46 IU/L [facility] Aminotransferase [facility] Bilirubin Total 0.6 0.2 - 1.3 mg/dL [facility] Blood Urea Nitrogen 16 7 - 26 mg/dL [facility] Creatinine 1.0 0.6 - 1.3 mg/dL [facility] GFR Male AA 94 60 - 200 [facility] Comment: HOSPITAL LAB Chronic Kidney Disease less than 60 mL/min/1.73 sq.m Kidney failure less than 15 mL/min/1.73 sq.m GFR Male Non-AA 78 60 - 200 [facility] Comment: HOSPITAL LAB Chronic Kidney Disease less than 60 mL/min/1.73 sq.m Kidney failure less than 15 mL/min/1.73 sq.m Specimen Blood Performing Organization Address [facility]/Zipcode Phone Number [facility] [address] [address] LAB * CBC and Diff (manual diff if necessary) (02/01/2018 12:27 AM) WBC 6.22 4.00 - 11.00 TH/uL [facility] RBC 4.03 (L) 4.31 - 5.84 MIL/uL [facility] Hemoglobin 10.7 (L) 13.0 - 17.0 g/dL [facility] Hematocrit 33 (L) 40 - 50 % [facility] MCV 81 80 - 99 [facility] LAB MCH 27 27 - 34 pg [facility] MCHC 33 32 - 36 % [facility] RDW 14.9 (H) 9.0 - 14.5 % [facility] Platelet Count 197 140 - 400 TH/uL [facility] MPV 11.0 9.4 - 12.3 [facility] LAB % Neutrophils 65 45 - 78 % [facility] %Lymphocytes 22 15 - 47 % [facility] %Monocytes 11 0 - 12 % [facility] %Eosinophils 2 0 - 7 % [facility] %Basophils 0 0 - 2 % [facility] # Granulocytes 4.04 1.70 - 6.80 TH/uL [facility] # Lymphocytes 1.36 1.00 - 3.30 TH/uL [facility] # Monocytes 0.67 0.20 - 0.90 TH/uL [facility] # Eosinophils 0.13 0.00 - 0.40 TH/uL [facility] # Basophils 0.02 0.00 - 0.10 TH/uL [facility] Specimen Blood Performing Organization Address City/[facility]/Zipcode Phone Number [facility] [address] [place] [address] LAB * ED Procedure Basic - ECG Interpret (02/01/2018 12:14 AM) Narrative Performed At Carson Taylor PA-C 02/01/20182:30 AM ECG Interpret Date/Time: 02/01/2018 11:40 PM Performed by: CARSON TAYLOR Authorized by: CARSON TAYLOR ECG reviewed by ED Physician in the absence of a progress man: yes Rate: ECG rate:102 ECG rate assessment: tachycardic Rhythm: Rhythm: sinus tachycardia Ectopy: Ectopy: none QRS: QRS axis:Normal Conduction: Conduction: normal ST segments: ST segments:Normal T waves: T waves: normal * Electrocardiogram (ECG) (01/31/2018 11:31 PM) QRSd 82 TRACEMASTER QT 360 TRACEMASTER QTC 469 TRACEMASTER ECGHR 102 TRACEMASTER ECGPR 148 TRACEMASTER Narrative Performed At [facility] Test Date:2018-01-31 Pat Name: MILIND HEARNepartment: [facility] ED Room: [facility] Gender: MTechnician: :1960 Requested By: CARSON TAYLOR Order Number: [id number] Reading MD: Viri Dorman Measurements IntervalsAxis Rate: 102P:73 IN: 148QRS:15 QRSD: 82 T:21 QT: 360 QTc:469 Interpretive Statements SINUS TACHYCARDIA PROBABLE LEFT ATRIAL ABNORMALITY BORDERLINE PROLONGED QTc INTERVAL Electronically Signed On 02-01-2018 10:32:45 MENTALLY RETARDED TEACHER by Viri Dorman Procedure Note Interface, External Ris In - 02/01/2018 10:32 AM [facility] Test Date: 2018-01-31 Pat Name: MILIND JON Department: [facility] ED Room: [facility] Gender: M Enrollment Counselor: : 1960 Requested By: CARSON TAYLOR Order Number: [id number] Reading MD: Viri Dorman Measurements Intervals [place] Rate: 102 P: 73 IN: 148 QRS: 15 QRSD: 82 T: 21 QT: 360 QTc: 469 Interpretive Statements SINUS TACHYCARDIA PROBABLE LEFT ATRIAL ABNORMALITY BORDERLINE PROLONGED QTc INTERVAL Electronically Signed On 02-01-2018 10:32:45 MENTALLY RETARDED TEACHER by Viri Dorman Performing Organization Address City/State/Zipcode Phone Number [facility] from Last 3 Months
--- OUTSIDE RECORDS SUMMARY | 2018-03-07 07:51 | XMS REPORT | Encounter Summary ---
Author Author [facility] Organization [facility] Address Unknown Phone Unavailable Care Team Providers Care Motors Assembler Name Role Phone Pedrito Dubois MD PCP Encounter Details Date Type Department Care Team Description 02/01/[address] [place] [address] Social History Tobacco Use Types Packs/Day Years Used Date Never Smoker Smokeless Tobacco: Never Used Alcohol Use Drinks/Week oz/Week Comments No Sex Assigned at Date Recorded Not on file as of this encounter Plan of Treatment Not on fileas of this encounter Visit Diagnoses Not on filein this encounter
--- OUTSIDE RECORDS SUMMARY | 2018-03-07 07:51 | XMS REPORT | Encounter Summary ---
Author Author [facility] Organization [facility] Address Unknown Phone Unavailable Care Team Providers Care Dentist/Owner Name Role Phone Pedrito Dubois MD PCP Encounter Details Date Type Department Care Team Description 02/01/2018 Pharmacy Visit [address] [address] Social History Tobacco Use Types Packs/Day Years Used Date Never Smoker Smokeless Tobacco: Never Used Alcohol Use Drinks/Week oz/Week Comments No Sex Assigned at Date Recorded Not on file as of this encounter Plan of Treatment Not on fileas of this encounter Visit Diagnoses Not on filein this encounter
--- OUTSIDE RECORDS SUMMARY | 2018-03-07 07:51 | XMS REPORT | Encounter Summary ---
Author Author [facility] Organization [facility] Address Unknown Phone Unavailable Care Team Providers Care Bread Room Hand Name Role Phone Pedrito Dubois MD PCP Encounter Details Date Type Department Care Team Description 02/02/2018 Pharmacy Visit [address] [address] Social History Tobacco Use Types Packs/Day Years Used Date Never Smoker Smokeless Tobacco: Never Used Alcohol Use Drinks/Week oz/Week Comments No Sex Assigned at Date Recorded Not on file as of this encounter Plan of Treatment Not on fileas of this encounter Visit Diagnoses Not on filein this encounter
--- OUTSIDE RECORDS SUMMARY | 2018-03-07 07:52 | XMS REPORT ---
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 Name Role Phone Neena Wagnerkhar Unavailable PROBLEMS Type Condition ICD9-CM Code [id number] Code Onset Dates Condition Status SNOMED Code Problem Crohns disease with complication, unspecified gastrointestinal tract location K50.919 Active 62853048 ALLERGIES Substance Reaction Event Type Date Status Penicillin Unknown Drug Allergy Jan, Active Morphine Sulfate Unknown Drug Allergy Jan, Active Heparin (Porcine) in NaCl Unknown Drug Allergy Jan, Active Alupent Unknown Drug Allergy Jan, Active ENCOUNTERS Encounter Location Date Diagnosis [facility], [address] [address] Jan, [facility], [address] [address] Jan, [facility] [address], [place] [id number] Jan, Crohns disease with complication, unspecified gastrointestinal tract location K50.919 [facility], [address] [address] Dec, IMMUNIZATIONS No Known Immunizations SOCIAL HISTORY Never Assessed REASON FOR VISIT crohns-known history. 38 surgeries completed due to crohn's., Was following Dr. Chacon in [facility] but pt moved. Surgeries done at [facility]. , Referred for low potassium and mag levels. Diarrhea, occasional blood, no abd pain. Colonoscopy last done 2006. PLAN OF CARE Activity Details Follow Up 2 Months Reason: Pending Test [facility] MONITR Crohn's blood test Pending Test CT Enterography VITAL SIGNS Heart Rate 90 /min 2018-01-26 Height 6 ft 7 in in 2018-01-26 Weight 331 lbs 2018-01-26 BMI 37.28 kg/m2 2018-01-26 Blood pressure systolic 176 mm Hg 2018-01-26 Blood pressure diastolic 96 mm Hg 2018-01-26 MEDICATIONS Medication Instructions Dosage Frequency Start Date End Date Duration Status Calcium Citrate + D 315-250 MG-UNIT Orally Twice a day 1 tablet 12h Active Magnesium Oxide 250 MG Orally Twice a day 1 tablet as needed 12h Active Potassium Chloride ER 20 MEQ Orally Three times a day 2 tablets with food 8h Active Vitamin B-12 Active Mercaptopurine 50 MG Orally Once a day 1 tablet 24h Active Losartan Potassium Orally Once a day 1 tablet 24h Active Advair Diskus 250-50 MCG/DOSE Inhalation Twice a day 1 puff as needed 12h Active Eliquis 5 MG Orally Twice a day 1 tablet 12h Active RESULTS No Results PROCEDURES No Known procedures INSTRUCTIONS MEDICATIONS ADMINISTERED No Known Medications MEDICAL (GENERAL) HISTORY Type Description Date Medical History Crohn's disease Medical History Asthma Medical History Vitamin B12 def Medical History Tachycardia Medical History [place] filter placement Surgical History Multiple abdominal surgeries 3850-4773 Surgical History Appendectomy Surgical History Cholecystectomy Surgical History Bowel resection x6 Surgical History Loop recorder Hospitalization History Blood clot LLE and low potassium 10/2017
--- OUTSIDE RECORDS SUMMARY | 2018-03-07 07:52 | XMS REPORT ---
Author Author TRISHA ARRIAGA Organization [facility] [address] Address [address] [place] [address] Care Team Providers Care Sap Bw Consultant Name Role Phone THOMASTRISHA CUELLAR Unavailable PROBLEMS Type Condition ICD9-CM Code [id number] Code Onset Dates Condition Status SNOMED Code Problem Personal history of venous thrombosis and embolism V12.51 Active 991283446 Problem Crohn''s disease without complication, unspecified gastrointestinal tract location K50.90 Active 14240407 Problem Chronic deep vein thrombosis (DVT) of femoral vein of left lower extremity I82.512 Active 141680262072177 Problem Unspecified peripheral vascular disease 443.9 Active 800707421 Problem Unspecified essential hypertension 401.9 Active 73461480 Problem Essential hypertension I10 Active 47224634 Problem Mild intermittent asthma without complication J45.20 Active 634599462 ALLERGIES No Information ENCOUNTERS Encounter Location Date Diagnosis [facility] [address] [place] [phone] 20 Nov, 2017 Crohn''s disease without complication, unspecified gastrointestinal tract location K50.90 ; Chronic deep vein thrombosis (DVT) of femoral vein of left lower extremity I82.512 ; Essential hypertension I10 and Vitamin B12 deficiency E53.8 [id number] [place] [place] [address] 15 Nov, 2017 Hypokalemia E87.6 [facility] [place] [address] [place] [phone] 13 Nov, 2017 Non- healing wound of lower extremity, left, sequela S81.802S [facility] [place] [address] [place] [phone] 10 Nov, 2017 Vitamin B12 deficiency E53.8 [facility] [address] [place] [phone] 16 Oct, 2017 Crohn''s disease without complication, unspecified gastrointestinal tract location K50.90 [facility] [address] [place] [phone] Oct, Crohn''s disease of small and large intestines with complication K50.819 [facility] [place] [address] [place] [phone] Oct, [facility] [address] [place] [phone] Oct, Crohn''s disease of small and large intestines with complication K50.819 ; Essential hypertension I10 and Chronic deep vein thrombosis (DVT) of femoral vein of left lower extremity I82.512 [facility] [place] [address] [place] [phone] Oct, [facility] [place] [address] [place] [phone] Jan, Crohn''s disease without complication, unspecified gastrointestinal tract location K50.90 and Vitamin B12 deficiency E53.8 [facility] [address] [place] [phone] Dec, Crohn''s disease without complication, unspecified gastrointestinal tract location K50.90 ; Essential hypertension I10 and Vitamin B12 deficiency E53.8 [facility] [address] [place] [phone] Dec, Crohn''s disease without complication, unspecified gastrointestinal tract location K50.90 ; Essential hypertension I10 ; Mild intermittent asthma without complication J45.20 ; Community acquired pneumonia of left lower lobe of lung J18.1 ; Sinus tachycardia R00.0 and Vitamin B12 deficiency E53.8 [place] [id number] [place] [phone] Jun, [facility] [address] [address] Jun, [facility] [address] [place] [id number] [place] [phone] Jan, [facility] [address] [address] Jan, [place] [address] [place] [id number] [place] [phone] Jan, IMMUNIZATIONS No Known Immunizations SOCIAL HISTORY Never Assessed REASON FOR VISIT Lab (walk-in) and B12 injection PLAN OF CARE VITAL SIGNS MEDICATIONS No Known Medications RESULTS No Results PROCEDURES Procedure Date Ordered Result Body Site LAB NOT BILLED BY [facility] Dec 05, 2017 INSTRUCTIONS MEDICATIONS ADMINISTERED No Known Medications MEDICAL (GENERAL) HISTORY Type Description Date Medical History Crohns Disease Medical History Asthma Medical History Vitamin B12 deficiency Medical History Tachycardia Medical History [place] Filter Placement Surgical History multiple abdominal surgeries 8585-5788 Surgical History appendectomy Surgical History cholysystectomy Surgical History bowel resections x6 Hospitalization History surgery Hospitalization History pneumonia 12/2016 Hospitalization History blood clot in LLE and low potassium levels 10/2017
--- OUTSIDE RECORDS SUMMARY | 2018-03-07 07:52 | XMS REPORT | Encounter Summary ---
Author Author [facility] Organization [facility] Address Unknown Phone Unavailable Care Team Providers Care [employer] Name Role Phone Pedrito Dubois MD PCP Reason for Visit * Reason Comments Chest pain Encounter Details Date Type Department Care Team Description 01/31/2018 Emergency [facility] Chest pain, unspecified - [address] type (Primary Dx); 02/01/2018 [place] [id number] Hypokalemia; [phone] Ulcer of left lower extremity, unspecified ulcer stage (HCC) Social History Tobacco Use Types Packs/Day Years Used Date Never Smoker Smokeless Tobacco: Never Used Alcohol Use Drinks/Week oz/Week Comments No Sex Assigned at Date Recorded Not on file as of this encounter Last Filed Vital Signs Vital Sign Reading Time Taken Blood Pressure 171/68 02/01/2018 2:30 AM [facility]BACCO HANGER Pulse 90 02/01/2018 2:45 AM [facility]BACCO HANGER Temperature 36.7 C (98 F) 02/01/2018 2:29 AM TOBACCO HANGER Respiratory Rate 13 02/01/2018 2:45 AM TOBACCO HANGER Oxygen Saturation 97% 02/01/2018 2:45 AM TOBACCO HANGER Inhaled Oxygen - - Concentration Weight 149.7 kg (330 lb) 01/31/2018 11:35 PM TOBACCO HANGER Height 200.7 cm (6' 7") 01/31/2018 11:35 PM TOBACCO HANGER Body Mass Index 37.18 01/31/2018 11:35 PM TOBACCO HANGER in this encounter Medications at Time of [...] 3 (three) times a day as needed. losartan (COZAAR) 25 MG Take 25 mg by mouth 02/02/2018 tablet daily. as of this encounter Miscellaneous Notes * ED Notes - Jessenia Salazar RN - 02/01/2018 3:08 AM [facility]BACCO [facility]ANGER Report given to EMS crew. * [facility] Note - Carson Vasquez PA-C - 02/01/2018 2:23 AM TOBACCO HANGER [facility] Documentation Section 1: Physician Certification Patient Condition: Patient stabilized Reason for Transfer: Clinical Services or Expertise Unavailable at this Hospital Diagnosis: Chest Pain Benefits of Transfer: Necessities available at receiving facility Risks of Transfer: Time delay, Deterioration, Loss of IV, Discomfort, Accidents or delays Accepting Physician: Dr. James Salazar Destination at receiving facility:: Direct Admission Sending MD: Carson Vasquez PA-C, Dr. Jada Ware MD Certification: Patient examined and risks explained * ED Notes - Jessenia Salazar RN - 02/01/2018 2:15 AM [facility]BACCO [facility]ANGER EMS contacted for transport * ED Provider Notes - Carson Vasquez PA-C - 02/01/2018 12:14 AM TOBACCO HANGER Associated Order(s): ED PROCEDURE BASIC - ECG INTERPRET Formatting of this note may be different from the original. 01/31/2018 [facility] History Chief Complaint Patient presents with Chest pain 57 y/o male presents with chest pain. 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 Pain is sharp, constant, associated with mild shortness of breath, no diaphoresis or N/V. 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 He has arterial stents in his legs and chronic LE swelling and discoloration, worse on left. Has chronic LE wound. He has Crohn's with frequent diarrhea and chronically low potassium on daily supplement. He has LOOP recorder in place for last three years which has caught a few arrhythmic episodes, pt unsure exactly what. He denies CAD, had clean heart cath about 4 years ago. Has h/o heparin induced thrombocytopenia. He follows with PCP Dr.Charles Dubois in [place] , Dr. Luan Brown vascular, Dr. Tiburcio Wagner for GI, Dr. Melania Bansal cardiology in [place]. Past Medical History: Diagnosis Date Asthma Crohn's disease (HCC) DVT (deep venous thrombosis) (HCC) left leg History reviewed. No pertinent surgical history. No family history on file. Social History Substance Use Topics Smoking status: Never Smoker Smokeless tobacco: Never Used Alcohol use No Review of Systems Constitutional: Negative for appetite change, chills, diaphoresis and fever. HENT: Negative for congestion and sore throat. Eyes: Negative for pain and redness. Respiratory: Positive for shortness of breath. Negative for cough and wheezing. Cardiovascular: Positive for chest pain and leg swelling (chronic). Negative for palpitations. Gastrointestinal: Positive for diarrhea (chronic). Negative for abdominal pain, nausea and vomiting. Genitourinary: Negative for difficulty urinating and dysuria. Musculoskeletal: Negative for arthralgias, joint swelling and myalgias. Skin: Negative for rash and wound. Neurological: Negative for dizziness, weakness and headaches. Psychiatric/Behavioral: Negative for behavioral problems and confusion. Physical Exam BP 133/79 | Pulse 90 | Temp 36.6 C (97.8 F) (Oral) | Resp 12 | Ht 2.007 m (6' 7") | Wt (!) 149.7 kg (330 lb) | SpO2 97% | BMI 37.18 kg/m Weight Method: Stated Physical Exam Constitutional: He is oriented to person, place, and time. He appears well- developed and well-nourished. He appears distressed (mild 2/2 pain). HENT: Head: Normocephalic and atraumatic. Mouth/Throat: Oropharynx is clear and moist. Eyes: Pupils are equal, round, and reactive to light. EOM are normal. Neck: Normal range of motion. Cardiovascular: Normal rate and regular rhythm. Pulmonary/Chest: Effort normal and breath sounds normal. No respiratory distress. He exhibits no tenderness (no chest/back tenderness). Abdominal: Soft. He exhibits no mass. There is no tenderness. There is no guarding. Musculoskeletal: Normal range of motion. 2+ BLE edema. L lower leg and ankle scaly and erythematous, pt states at baseline. 2cm ulcer to posterior lower leg with clear drainage. DP pulses palpable bilaterally, movement and sensation intact, feet warm. Neurological: He is alert and oriented to person, place, and time. No cranial nerve deficit. Skin: Skin is warm and dry. He is not diaphoretic. Psychiatric: He has a normal mood and affect. His behavior is normal. ED Course ECG Interpret Date/Time: 02/01/2018 11:40 PM Performed by: CARSON VASQUEZ Authorized by: CARSON VASQUEZ ECG reviewed by ED Physician in the absence of a preparole counseling aide: yes Rate: ECG rate: 102 ECG rate assessment: tachycardic Rhythm: Rhythm: sinus tachycardia Ectopy: Ectopy: none QRS: QRS axis: Normal Conduction: Conduction: normal ST segments: ST segments: Normal T waves: T waves: normal MDM Number of Diagnoses or Management Options Chest pain, unspecified type: Hypokalemia: Ulcer of left lower extremity, unspecified ulcer stage (HCC): Amount and/or Complexity of Data Reviewed Clinical lab tests: ordered and reviewed Tests in the radiology section of CPT: ordered and reviewed Tests in the medicine section of CPT: ordered and reviewed Obtain history from someone other than the patient: yes Discuss the patient with other providers: yes Independent visualization of images, tracings, or specimens: yes Results for orders placed or performed during the hospital encounter of (from the past 24 hour(s)) Electrocardiogram (ECG) Result Value Ref Range QRSd 82 QT 360 QTC 469 ECGHR 102 ECGPR 148 CBC and Diff (manual diff if necessary) Result Value Ref Range WBC 6.22 4.00 - 11.00 TH/uL RBC 4.03 (L) 4.31 - 5.84 MIL/uL Hemoglobin 10.7 (L) 13.0 - 17.0 g/dL Hematocrit 33 (L) 40 - 50 % MCV 81 80 - 99 fL MCH 27 27 - 34 pg MCHC 33 32 - 36 % RDW 14.9 (H) 9.0 - 14.5 % Platelet Count 197 140 - 400 TH/uL MPV 11.0 9.4 - 12.3 fL % Neutrophils 65 45 - 78 % %Lymphocytes 22 15 - 47 % %Monocytes 11 0 - 12 % %Eosinophils 2 0 - 7 % %Basophils 0 0 - 2 % # Granulocytes 4.04 1.70 - 6.80 TH/uL # Lymphocytes 1.36 1.00 - 3.30 TH/uL # Monocytes 0.67 0.20 - 0.90 TH/uL # Eosinophils 0.13 0.00 - 0.40 TH/uL # Basophils 0.02 0.00 - 0.10 TH/uL Comprehensive Metabolic Panel Result Value Ref Range Sodium 141 133 - 147 MEQ/L Potassium 3.1 (L) 3.5 - 5.3 MEQ/L Chloride 101 96 - 112 MEQ/L Carbon Dioxide 30 20 - 32 MEQ/L Anion Gap 11 5 - 17 Calcium 7.9 (L) 8.4 - 10.5 mg/dL Glucose 118 (H) 70 - 100 mg/dL Protein Total Serum 7.4 6.0 - 8.2 g/dL Albumin 3.9 3.5 - 5.0 g/dL Alkaline Phosphatase 46 42 - 140 IU/L Alanine Aminotransferase 21 0 - 49 IU/L Aspartate Aminotransferase 33 15 - 46 IU/L Bilirubin Total 0.6 0.2 - 1.3 mg/dL Blood Urea Nitrogen 16 7 - 26 mg/dL Creatinine 1.0 0.6 - 1.3 mg/dL GFR Male AA 94 60 - 200 GFR Male Non-AA 78 60 - 200 NTproBNP Result Value Ref Range NTproBNP 340 pg/mL Troponin Result Value Ref Range Troponin <0.01 0.00 - 0.03 ng/mL Lipase Result Value Ref Range Lipase 128 23 - 300 IU/L Ct Angio Chest Result Date: 02/01/2018 +++++++++++++++++++++++++++++++++++++++++++++++++++++++++++++++++++++++++++ + PRELIMINARY PRELIMINARY PRELIMINARY ++++++++++++++++ +++++++++++++++++++++++++++++++++++++++++++++++++++++++++++ [facility] REPORT:EXAM: CT Angiography Chest With Intravenous Contrast EXAM DATE/TIME: 02/01/2018 12: 44 AM CLINICAL HISTORY: 57 years old, male; Pain; Chest pain; Radiating; Prior surgery; Surgery date: <1 month; Surgery type: Monitor; Additional info: Chest/ back pain, h/o dvt, pe TECHNIQUE: Axial computed tomographic angiography images of the chest with intravenous contrast using CT angiography protocol. MIP reconstructed images were created and reviewed. CONTRAST: 100 ml of Omnipaque 300 administered intravenously. COMPARISON: No relevant prior studies available. FINDINGS: Tubes, catheters and devices: Horizontally oriented tubular density in the left para-midline anterior chest wall soft tissues is likely a cardiac recorder. Pulmonary arteries: Submaximal pulmonary artery opacification was achieved. The visualized central and segmental pulmonary arteries appear to be clear without findings suspect for thrombus. Aorta: No discernible aortic dissection flap. Lungs: The lungs are well expanded. No consolidation. 2 right middle lobe lung nodules measure approximately 3 mm respectively, of doubtful clinical significance. Pleural space: No pneumothorax. No pleural effusion. Heart: No cardiomegaly. No pericardial effusion. No findings of right heart dysfunction Bones/joints: Mild degenerative bony changes. Soft tissues: Soft tissues are normal. Lymph nodes: No mediastinal adenopathy. Gallbladder and bile ducts: The gallbladder is surgically absent. Upper abdomen: The upper abdominal contents are otherwise unremarkable. Intraperitoneal space: No aortic dilation or periaortic fluid collection. ++++++++++++++++++++++++++++++++++++++++++++++++++ +++++++++++++++++++++++++ + PRELIMINARY PRELIMINARY PRELIMINARY + this is an unsigned PRELIMINARY REPORT and does not reflect + corrections, additions, and/or subtractons to the information + contained in this report ++++++++++++++++++++++++++++++ +++++++++++++++++++++++++++++++++++++++++++++ No central or segmental pulmonary emboli identified. Small filling defects within subsegmental pulmonary emboli cannot be excluded due to limited opacification No acute findings THIS DOCUMENT HAS BEEN ELECTRONICALLY SIGNED BY JAZMIN SANON Medications Administered During Visit Medications nitroglycerin (NITROSTAT) SL tablet 0.4 mg (0.4 mg Sublingual Given 02/01/18126 ) aspirin chewable tablet 324 mg (324 mg Oral Given 02/01/18 000) fentaNYL (SUBLIMAZE) injection 50 mcg (50 mcg Intravenous Given 02/01/1857) iohexol (OMNIPAQUE) 300 mg iodine/mL injection 100 mL (100 mL Intravenous Given 02/01/18118) fentaNYL (SUBLIMAZE) injection 50 mcg (50 mcg Intravenous Given 02/01/18139) potassium chloride (KLOR-CON) CR tablet 40 mEq (40 mEq Oral Given 02/01/18138) fentaNYL (SUBLIMAZE) injection 50 mcg (50 mcg Intravenous Given 02/01/18148) HYDROmorphone (DILAUDID) injection 0.5 mg (0.5 mg Intravenous Given 02/01/18201 ) HYDROmorphone (DILAUDID) injection 0.5 mg (0.5 mg Intravenous Given 02/01/18219 ) Patient's Medications New Prescriptions No medications on file Previous Medications APIXABAN (ELIQUIS) 5 MG TABLET Take 5 mg by mouth 2 (two) times a day. LOSARTAN (COZAAR) 25 MG TABLET Take 25 mg by mouth daily. POTASSIUM ACETATE MISC 500 mg by Miscellaneous route 3 (three) times a day. Modified Medications No medications on file Discontinued Medications No medications on file Filed VS 02/01/1811402/01/18129 BP: (!) 143/84 133/79 Pulse: 90 90 Resp: 14 12 Temp: SpO2: 97% 97% Only mild improvement in pain after nitro, fentanyl, dilaudid. Vitals remain stable, CT chest w/o acute findings. Chronic left LE ulcer with stasis dermatitis slow healing but does not appear infected. Pt has gone to [facility] in the past but last admit was in 2005 and pt prefers facility instead. Discussed with Dr. James Salazar, transfer hospitalist, accepts transfer to [facility]. Pt agreeable, stable for ground transport. ED Clinical Impression 1. Chest pain, unspecified type 2. Hypokalemia 3. Ulcer of left lower extremity, unspecified ulcer stage (HCC) Patient ED Dispo ED Disposition Transfer to Another Facility Carson Vasquez PA-C 02/01/18 0230 * ED Triage Notes - Jessenia Salazar RN - 01/31/2018 11:42 PM TOBACCO HANGER Pain started in back approximately 2 hours ago, moved to chest approximately 30 minutes ago when he decided to come to the ER. Had a loop recorder placed approximately 3 years ago, Hx of DVTs to left leg. C/o SOA. in this encounter Plan of Treatment Not on fileas of this encounter Procedures Procedure Name Priority Date/Time Associated Diagnosis Comments CT ANGIO CHEST STAT 02/01/2018 Results for this 1:18 AM TOBACCO HANGER procedure are in the results section. TROPONIN STAT 02/01/2018 Results for this 12:27 AM [facility]BACCO HANGER procedure are in the results section. NTPROBNP STAT 02/01/2018 Results for this 12:27 AM TOBACCO HANGER procedure are in the results section. LIPASE STAT 02/01/2018 Results for this 12:27 AM [facility]BACCO HANGER procedure are in the results section. COMPREHENSIVE METABOLIC STAT 02/01/2018 Results for this PANEL 12:27 AM TOBACCO HANGER procedure are in the results section. CBC AND DIFF (MANUAL DIFF STAT 02/01/2018 Results for this IF NECESSARY) 12:27 AM TOBACCO HANGER procedure are in the results section. ED PROCEDURE BASIC - ECG Routine 02/01/2018 Results for this INTERPRET 12:14 AM TOBACCO HANGER procedure are in the results section. ECG STAT 01/31/2018 Results for this 11:31 PM TOBACCO HANGER procedure are in the results section. in this encounter Results * CT Angio Chest (02/01/2018 1:18 AM) Impressions Performed At No evidence for central pulmonary embolusEstela ELMER A few 3 mm or less [...] A preliminary report which was provided by [employer] was reviewed. Narrative Performed At Patient: BONIFACIO JON Sex#:M # [id number] Veena#:[id number] Location:[facility] ED AED-02Accession#: [id number] Procedure Requested:[id number] CT ANGIO CHEST Reason for Exam:chest/back pain, h/o DVT, PE Exam Ordered:02/01/20180040 Exam Date/Time:18 Begin exam date/time: Dictation location:[place] Exam Date:02/01/2018 1:[address] ANGIO CHEST [...] Rad Results In - 02/01/2018 9:09 AM TOBACCO HANGER Patient: MILIND JON Sex#: M # [id number] Veena#: [id number] Location: [facility]02 Procedure Requested: [id number] CT ANGIO CHEST Reason for Exam: chest/back pain, h/o DVT, PE Exam Ordered: 02/01/2018 0040 Exam Date/Time: 02/01/2018 0118 Begin exam date/time: 02/01/2018 0044 Dictation location: [place] Exam Date: 02/01/2018 1:[address] ANGIO [...] A preliminary report which was provided by [employer] was reviewed. Performing Organization Address [facility] Phone Number MCKESSON * Lipase (02/01/2018 12:27 AM) Lipase 128 23 - 300 IU/L [facility] Specimen Blood Performing Organization Address [facility] Phone Number [facility] [address] [place] [address] LAB * Troponin (02/01/2018 12:27 AM) Troponin <0.01 0.00 - 0.03 ng/mL [facility] Comment: HOSPITAL LAB Troponin ValueInterpretation 0.00 - 0.03 Healthy 0.04 - 0.12 Increased Cardiac Risk >0.12M yocardial Infarction Troponin may not become elevated until 6 to 8 hours after onset of symptoms. Specimen Blood Performing Organization Address [facility] Phone Number [facility] [address] [address] LAB * NTproBNP (02/01/2018 12:27 AM) NTproBNP 340 pg/mL [facility] Comment: HOSPITAL LAB NT-proBNPReference Ranges: <50 yr<450 pg/mL 50-75 yr<900 pg/mL >75 yr <1800 pg/mL A cutoff value of 1200 pg/mL is recommended in patients 50 to 70 years of age with a GFR between 30 and 60.NT-proBNP is unreliable in patients with GFR <30. Specimen Blood Performing Organization Address City/State/Zipcode Phone Number [facility] [address] [place] [address] LAB * Comprehensive Metabolic Panel (02/01/2018 12:27 AM) Sodium 141 133 - 147 MEQ/L [facility] Potassium 3.1 (L) 3.5 - 5.3 MEQ/L [facility] Chloride 101 96 - 112 MEQ/L [facility] Carbon Dioxide 30 20 - 32 MEQ/L [facility] Anion Gap 11 5 - 17 [facility] Calcium 7.9 (L) 8.4 - 10.5 mg/dL [facility] Glucose 118 (H) 70 - 100 mg/dL [facility] Protein Total Serum 7.4 6.0 - 8.2 g/dL [facility] Albumin 3.9 3.5 - 5.0 g/dL [facility] Alkaline Phosphatase 46 42 - 140 IU/L [facility] Alanine Aminotransferase 21Comment: ALT reference range 0 - 49 IU/L [facility] changed on 10-04-2017 HOSPITAL LAB Aspartate 33 15 - 46 IU/L [facility] Aminotransferase [facility] Bilirubin Total 0.6 0.2 - 1.3 mg/dL [facility] Blood Urea Nitrogen 16 7 - 26 mg/dL [facility] Creatinine 1.0 0.6 - 1.3 mg/dL [facility] GFR Male AA 94 60 - 200 [facility] Comment: HOSPITAL LAB Chronic Kidney Disease less than 60 mL/min/1.73 sq.m Kidney failure less than 15 mL/min/1.73 sq.m GFR Male Non-AA 78 60 - 200 [facility] Comment: HOSPITAL LAB Chronic Kidney Disease less than 60 mL/min/1.73 sq.m Kidney failure less than 15 mL/min/1.73 sq.m Specimen Blood Performing Organization Address [facility] Phone Number [facility] [address] [address] LAB * CBC and Diff (manual diff if necessary) (02/01/2018 12:27 AM) WBC 6.22 4.00 - 11.00 TH/uL [facility] RBC 4.03 (L) 4.31 - 5.84 MIL/uL [facility] Hemoglobin 10.7 (L) 13.0 - 17.0 g/dL [facility] Hematocrit 33 (L) 40 - 50 % [facility] MCV 81 80 - 99 fL [facility] MCH 27 27 - 34 pg [facility] MCHC 33 32 - 36 % [facility] RDW 14.9 (H) 9.0 - 14.5 % [facility] Platelet Count 197 140 - 400 TH/uL [facility] MPV 11.0 9.4 - 12.3 [facility] LAB % Neutrophils 65 45 - 78 % [facility] %Lymphocytes 22 15 - 47 % [facility] %Monocytes 11 0 - 12 % [facility] %Eosinophils 2 0 - 7 % [facility] %Basophils 0 0 - 2 % [facility] # Granulocytes 4.04 1.70 - 6.80 TH/uL [facility] # Lymphocytes 1.36 1.00 - 3.30 TH/uL [facility] # Monocytes 0.67 0.20 - 0.90 TH/uL [facility] # Eosinophils 0.13 0.00 - 0.40 TH/uL [facility] # Basophils 0.02 0.00 - 0.10 TH/uL [facility] Specimen Blood Performing Organization Address [facility]/Zipcode Phone Number [facility] [address] [address] LAB * ED Procedure Basic - ECG Interpret (02/01/2018 12:14 AM) Narrative Performed At Carson Vasquez PA-C 02/01/20182:30 AM ECG Interpret Date/Time: 02/01/2018 11:40 PM Performed by: CARSON VASQUEZ Authorized by: CARSON VASQUEZ ECG reviewed by ED Physician in the absence of a preparole counseling aide: yes Rate: ECG rate:102 ECG rate assessment: tachycardic Rhythm: Rhythm: sinus tachycardia Ectopy: Ectopy: none QRS: QRS axis:Normal Conduction: Conduction: normal ST segments: ST segments:Normal T waves: T waves: normal * Electrocardiogram (ECG) (01/31/2018 11:31 PM) QRSd 82 TRACEMASTER QT 360 TRACEMASTER QTC 469 TRACEMASTER ECGHR 102 [facility]ACEMASTER ECGPR 148 [facility] Narrative [facility] Test Date:2018-01-31 Pat Name: MILIND HEARNepartment: [facility] ED Room: [facility] Gender: MTechnician: BHAVESH :1960 Requested By: CARSON VASQUEZ Order Number: [id number] Reading MD: Viri Dorman Measurements IntervalsAxis Rate: 102P:73 [place]: 148QRS:15 QRSD: 82 T:21 QT: 360 QTc:469 Interpretive Statements SINUS TACHYCARDIA PROBABLE LEFT ATRIAL ABNORMALITY BORDERLINE PROLONGED QTc INTERVAL Electronically Signed On 02-01-2018 10:32:45 TOBACCO HANGER by Viri Dorman Procedure Note Interface, External Ris In - 02/01/2018 10:32 AM [facility] Test Date: 2018-01-31 Pat Name: MILIND JON Department: [facility] ED Room: [facility] 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1960 Requested By: CARSON VASQUEZ Order Number: [id number] Reading MD: Viri Dorman Measurements Intervals [place] Rate: 102 P: 73 [place]: 148 QRS: 15 QRSD: 82 T: 21 QT: 360 QTc: 469 Interpretive Statements SINUS TACHYCARDIA PROBABLE LEFT ATRIAL ABNORMALITY BORDERLINE PROLONGED QTc INTERVAL Electronically Signed On 02-01-2018 10:32:45 TOBACCO HANGER by Viri Dorman Performing Organization Address City/State/Zipcode Phone Number TRACEMASTER in this encounter Visit Diagnoses Diagnosis Chest pain, unspecified type - Primary Hypokalemia Hypopotassemia Ulcer of left lower extremity, unspecified ulcer stage (HCC) Administered Medications Medication Order MAR Action Action Date Dose Rate Site aspirin 81 MG chewable tablet Starting Tue02/01/18 at 0005, For 1 dose, Salazar, Brecken: cabinet override aspirin chewable tablet 324 mg Given 02/01/2018 324 mg 324 mg, Oral, Once, Tue02/01/18 at 0030, 00:07 TOBACCO HANGER For 1 dose fentaNYL (SUBLIMAZE) 50 mcg/mL injection Starting Tue02/01/18 at 0146, For 1 dose, Jsesenia Salazar: cabinet override fentaNYL (SUBLIMAZE) injection 50 mcg Given 02/01/2018 50 mcg 50 mcg, Intravenous, Once, Tue02/01/18 00:58 TOBACCO HANGER at 0115, For 1 dose, Administer over 2 minutes; max dose for IVP is 2 mcg/kg. Note: Limit does not apply to patients who may be tolerant to opioid therapy or on continuous IV or PO opiate therapy. fentaNYL (SUBLIMAZE) injection 50 mcg Given 02/01/2018 50 mcg 50 mcg, Intravenous, Once, Tue02/01/18 01:40 TOBACCO HANGER at 0200, For 1 dose, Administer over 2 minutes; max dose for IVP is 2 mcg/kg. Note: Limit does not apply to patients who may be tolerant to opioid therapy or on continuous IV or PO opiate therapy. fentaNYL (SUBLIMAZE) injection 50 mcg Given 02/01/2018 50 mcg 50 mcg, Intravenous, Once, Tue02/01/18 01:49 TOBACCO HANGER at 0215, For 1 dose, Administer over 2 minutes; max dose for IVP is 2 mcg/kg. Note: Limit does not apply to patients who may be tolerant to opioid therapy or on continuous IV or PO opiate therapy. HYDROmorphone (DILAUDID) injection 0.5 Given 02/01/2018 0.5 mg mg 02:02 TOBACCO HANGER 0.5 mg, Intravenous, Once, Tue02/01/18 at 0230, For 1 dose, Administer at a max rate of 1 mg/min; max dose for IVP is 4 mg. Note: Limit does not apply to patients who may be tolerant to opioid therapy or on continuous IV or PO opiate therapy. HYDROmorphone (DILAUDID) injection 0.5 Given 02/01/2018 0.5 mg mg 02:20 TOBACCO HANGER 0.5 mg, Intravenous, Once, Tue02/01/18 at 0245, For 1 dose, Administer at a max rate of 1 mg/min; max dose for IVP is 4 mg. Note: Limit does not apply to patients who may be tolerant to opioid therapy or on continuous IV or PO opiate therapy. iohexol (OMNIPAQUE) 300 mg iodine/mL Given 02/01/2018 100 mL injection 100 mL 01:19 TOBACCO HANGER 100 mL, Intravenous, Once in imaging, contrast, Starting Tue02/01/18 at 0118, For 1 dose nitroglycerin (NITROSTAT) 0.4 MG SL tablet Starting Tue02/01/18 at 0005, For 1 dose, Jessenia Salazar: cabinet override DO NOT CRUSH OR CHEW. nitroglycerin (NITROSTAT) SL tablet 0.4 Given 02/01/2018 mg 00:07 TOBACCO HANGER 0.4 mg, Sublingual, Every 5 min PRN, chest pain, Starting Tue02/01/18 at 0010, May repeat every 5 minutes for a total of 3 doses. Check BP prior to each dose. Discontinue use for SBP less than 90 mmHg. Notify physician if given. DO NOT CRUSH OR CHEW. Given 02/01/2018 0.4 mg 00:38 TOBACCO HANGER Given 02/01/2018 0.4 mg 01:27 TOBACCO HANGER potassium chloride (KLOR-CON) CR tablet Given 02/01/2018 40 mEq 40 mEq 01:39 TOBACCO HANGER 40 mEq, Oral, Once, Tue02/01/18 at 0200, For 1 dose, DO NOT CRUSH OR CHEW. in this encounter
--- OUTSIDE RECORDS SUMMARY | 2018-03-07 07:52 | XMS REPORT | Referral Summary ---
Author Author [facility] Organization [facility] Address Unknown Phone Unavailable Care Team Providers Care Geographic Information System Analyst Name Role Phone No PCP, Pt States PCP Encounter VC Date(s): 08/04/14 - 08/04/14 [facility] [address] [place] [address] [phone] Discharge Diagnosis: Deep vein thrombosis of left femoral vein Final: Acute Venous Embolism and Thrombosis of Deep Vessels of Proximal Lower Extremity Discharge Disposition: 01-Home or Self Care Attending Physician: Chad Arroyo MD Admitting Physician: Chad Arroyo MD Vital Signs Most recent to 1 oldest [Reference Range]: Temperature Oral 36 degC [35.8-37.3 degC] (08/04/14 8:59 PM) Peripheral Pulse 88 bpm Rate [60-100 bpm] (08/04/14 8:59 PM) Respiratory Rate 18 br/min [14-20 br/min] (08/04/14 8:59 PM) Blood Pressure 161/99 mmHg [90-140/60-90 mmHg] *HI* (08/04/14 8:59 PM) SpO2 98 % (08/04/14 8:59 PM) Problem List Condition Effective Dates Status Health Status Informant CD (Crohn's Active patient disease)(Confirmed) Active Active patient DVT(Confirmed) HTN Active patient (hypertension)(Confi rmed) Allergies, Adverse Reactions, Alerts Substance Reaction Severity Status Alupent Active heparin Active morphine Active penicillin Active Medications aspirin 0 Refill(s) Start Date: 08/04/14 Status: Ordered Diovan Oral, 0 Refill(s) Start Date: 08/04/14 Status: Ordered Eliquis Oral, BID, 0 Refill(s) Start Date: 08/04/14 Status: Ordered Naldo-Iron 0 Refill(s) Start Date: 08/04/14 Status: Ordered magnesium sulfate g, IV, Once, 0 Refill(s) Start Date: 08/04/14 Status: Ordered Zonalon 5% topical cream 1 lisandro, Topical, QID, as needed for itching, USE SPARINGLY TO AREA OF ITCHING, # 30 g, 0 Refill(s) Start Date: 08/04/14 Status: Ordered Results No data available for this section Immunizations No data available for this section Procedures Procedure Date Related Diagnosis Body Site Appendectomy Cholecystectomy Social History Social History Type Response Smoking Status Never smoker Assessment and Plan No data available for this section
--- OUTSIDE RECORDS SUMMARY | 2018-03-07 07:52 | XMS REPORT | Encounter Summary ---
Author Author [facility] Organization [facility] Address Unknown Phone Unavailable Care Team Providers Care Supervisor Polishing Name Role Phone Pedrito Dubois MD PCP Encounter Details Date Type Department Care Team Description 02/01/2018 [facility] Carson Taylor PA-C Encounter [address] [place] [address] [address] [place], [place] [id number] Social History Tobacco Use Types Packs/Day Years Used Date Never Smoker Smokeless Tobacco: Never Used Alcohol Use Drinks/Week oz/Week Comments No Sex Assigned at Date Recorded Not on file as of this encounter Medications at Time of Discharge [...] 02/02/2018 tablet daily. as of this encounter Plan of Treatment Not on fileas of this encounter Visit Diagnoses Not on filein this encounter Admitting Diagnoses Diagnosis chest pain
--- OUTSIDE RECORDS SUMMARY | 2018-03-07 07:52 | XMS REPORT ---
Author Author Tiburcio Wagner Organization [facility], [place] Address [address] [id number] Care Team Providers Care Right Of Way Man Name Role Phone Tiburcio Wagner Unavailable PROBLEMS Type Condition ICD9-CM Code [id number] Code Onset Dates Condition Status SNOMED Code Problem Crohns disease with complication, unspecified gastrointestinal tract location K50.919 Active 23027437 ALLERGIES No Information ENCOUNTERS Encounter Location Date Diagnosis [facility], [place] [address] [address] Jan, [facility] [place] [address] [place] [address] Jan, [facility] [address] [place], [place] [phone] Jan, Crohns disease with complication, unspecified gastrointestinal tract location K50.919 [facility] [address] [address] Dec, IMMUNIZATIONS No Known Immunizations SOCIAL HISTORY Never Assessed REASON FOR VISIT [employer] MONITR PLAN OF CARE VITAL SIGNS MEDICATIONS Unknown Medications RESULTS No Results PROCEDURES No Known procedures INSTRUCTIONS MEDICATIONS ADMINISTERED No Known Medications MEDICAL (GENERAL) HISTORY Type Description Date Medical History Crohn's disease Medical History Asthma Medical History Vitamin B12 def Medical History Tachycardia Medical History Yosvany filter placement Surgical History Multiple abdominal surgeries 3577-2404 Surgical History Appendectomy Surgical History Cholecystectomy Surgical History Bowel resection x6 Surgical History Loop recorder Hospitalization History Blood clot LLE and low potassium 10/2017
--- OUTSIDE RECORDS SUMMARY | 2018-03-07 07:52 | XMS REPORT ---
Author Author Tiburcio Wagner Organization [facility], [place] Address [address] [id number] Care Team Providers Care Garbage Truck Driver Name Role Phone Tiburcio Wagner Unavailable PROBLEMS Unknown Problems ALLERGIES Substance Reaction Event Type Date Status Penicillin Unknown Drug Allergy Dec, Active Morphine Sulfate Unknown Drug Allergy Dec, Active Heparin (Porcine) in NaCl Unknown Drug Allergy Dec, Active Alupent Unknown Drug Allergy Dec, Active ENCOUNTERS Encounter Location Date Diagnosis [facility] [address] [place], [place] [phone] Jan, [facility], [place] [address] [address] Dec, IMMUNIZATIONS No Known Immunizations SOCIAL HISTORY Never Assessed REASON FOR VISIT GI preload PLAN OF CARE VITAL SIGNS MEDICATIONS Medication Instructions Dosage Frequency Start Date End Date Duration Status Calcium Citrate + D 315-250 MG-UNIT Orally Twice a day 1 tablet 12h Active Advair Diskus 250-50 MCG/DOSE Inhalation Twice a day 1 puff 12h Active Potassium Chloride ER 20 MEQ Orally Once a day 1 tablet with food 24h Active Eliquis 5 MG Orally Twice a day 1 tablet 12h Active Vitamin B-12 Active Mercaptopurine 50 MG Orally Once a day 1 tablet 24h Active Magnesium Oxide 250 MG Orally Twice a day 1 tablet as needed 12h Active RESULTS No Results PROCEDURES No Known procedures INSTRUCTIONS MEDICATIONS ADMINISTERED No Known Medications MEDICAL (GENERAL) HISTORY Type Description Date Medical History Crohn's disease Medical History Asthma Medical History Vitamin B12 def Medical History Tachycardia Medical History Yosvany filter placement Surgical History Multiple abdominal surgeries 4663-6753 Surgical History Appendectomy Surgical History Cholecystectomy Surgical History Bowel resection x6 Surgical History Loop recorder Hospitalization History Blood clot LLE and low potassium 10/2017
--- OUTSIDE RECORDS SUMMARY | 2018-03-07 07:52 | XMS REPORT | Clinical Summary ---
Author Author [facility] Organization [facility] Address Unknown Phone Unavailable Care Team Providers Care Concrete Mixer Name Role Phone Chad Mariano DO PCP Source Comments Some departments are not documenting in the electronic medical record. If you do not see the information that you expected, contact Release of Information in the Health Information Management department at [phone] for further assistance in locating additional records.[facility] Allergies Comments Active Allergy Reactions Severity Noted Date Metaproterenol 08/06/2009 Causes clotting Heparin (Bovine) 08/06/2009 Morphine RASH 08/06/2009 Penicillins RASH 08/06/2009 Medications End Date Status Medication Sig Dispensed Refills Start Date Active potassium chloride SR Take 20 mEq 0 (K-DUR) 20 mEq tablet by mouth Daily. Active pantoprazole DR,+, Take 40 mg by 0 (PROTONIX) 40 mg tablet mouth Daily. Active MULTIVITAMINS (MULTIPLE Take by 0 VITAMIN PO) mouth Daily. Active loperamide (IMODIUM) 2 mg Take 2 mg by 0 capsule mouth As Needed for Diarrhea. Active fondaparinux (ARIXTRA) 10 Inject 10 mg 0 mg/0.8 mL Syrg into area(s) as directed Daily. Active folic acid (FOLVITE) 1 mg Take 1 mg by 0 tablet mouth Daily. Active ferrous sulfate 325 mg Take 325 mg 0 (65 mg Iron) tablet by mouth Daily. Active budesonide,+, (ENTOCORT Take 3 mg by 0 EC) 3 mg capsule mouth Three Times Daily. Active ALUMINUM HYDROXIDE TP Apply to 0 affected area As Needed. Active oxycodone/acetaminophen Take 1 Tab by 0 (PERCOCET) 5/325 mg mouth. Up to tablet 4 tablets per day Active acetaminophen (TYLENOL) Take 325 mg 0 325 mg tablet by mouth. Take up to 4 tablets per day Active Problems Not on file Social History Date Tobacco Use Types Packs/Day Years Used Never Assessed Sex Assigned at Date Recorded Not on file Industry Job Start Date Occupation Not on file Not on file Not on file Travel End Travel History Travel Start No recent travel history available. Last Filed Vital Signs Time Taken Vital Sign Reading 08/06/2009 10:57 AM CDT Blood Pressure 161/104 08/06/2009 10:57 AM CDT Pulse 98 08/06/2009 10:57 AM CDT Temperature 36.9 C (98.4 F) - Respiratory Rate - 08/06/2009 10:57 AM CDT Oxygen Saturation 100% - Inhaled Oxygen - Concentration 08/06/2009 10:57 AM CDT Weight 123.3 kg (271 lb 12.8 oz) 08/06/2009 10:57 AM CDT Height 194.3 cm (6' 4.5") 08/06/2009 10:57 AM CDT Body Mass Index 32.65 Plan of Treatment Health Maintenance Due Date Last Done Comments HEPATITIS C SCREENING 1962 PHYSICAL (COMPREHENSIVE) 1969 EXAM HIV SCREENING 1977 DTAP/TDAP VACCINES (1 - 1980 Tdap) COLORECTAL CANCER 2012 SCREENING SHINGLES RECOMBINANT 2012 VACCINE (1 of 2) INFLUENZA VACCINE 10/26/2017 Results Not on filefrom Last 3 Months
--- OUTSIDE RECORDS SUMMARY | 2018-03-07 07:52 | XMS REPORT ---
Author Author TRISHA ARRIAGA Organization [facility] [address] Address [address] [place] [address] Care Team Providers Care Wireless Field Technician Name Role Phone THOMASTRISHA CUELLAR Unavailable PROBLEMS Type Condition ICD9-CM Code IHW67-QC Code Onset Dates Condition Status SNOMED Code Problem Personal history of venous thrombosis and embolism V12.51 Active 254702534 Problem Crohn''s disease without complication, unspecified gastrointestinal tract location K50.90 Active 42128225 Problem Chronic deep vein thrombosis (DVT) of femoral vein of left lower extremity I82.512 Active 775491553202983 Problem Unspecified peripheral vascular disease 443.9 Active 412028720 Problem Unspecified essential hypertension 401.9 Active 02687209 Problem Essential hypertension I10 Active 22227209 Problem Mild intermittent asthma without complication J45.20 Active 566043596 ALLERGIES No Information ENCOUNTERS Encounter Location Date Diagnosis [facility] [address] [place] [phone] 15 Dec, 2017 Crohn''s disease without complication, unspecified gastrointestinal tract location K50.90 [facility] [address] [place] [address] 20 Nov, 2017 Crohn''s disease without complication, unspecified gastrointestinal tract location K50.90 ; Chronic deep vein thrombosis (DVT) of femoral vein of left lower extremity I82.512 ; Essential hypertension I10 and Vitamin B12 deficiency E53.8 [facility] [address] [place] [address] 15 Nov, 2017 Hypokalemia E87.6 [facility] [address] [place] [phone] 13 Nov, 2017 Non- healing wound of lower extremity, left, sequela S81.802S [facility] [address] [place] [phone] 10 Nov, 2017 Vitamin B12 deficiency E53.8 [facility] [address] [place] [address] Oct, Crohn''s disease without complication, unspecified gastrointestinal tract location K50.90 [facility] [address] [place] [address] Oct, Crohn''s disease of small and large intestines with complication K50.819 [facility] [address] [place] [address] Oct, [facility] [address] [place] [phone] Oct, Crohn''s disease of small and large intestines with complication K50.819 ; Essential hypertension I10 and Chronic deep vein thrombosis (DVT) of femoral vein of left lower extremity I82.512 [facility] [address] [place] [address] Oct, [facility] [address] [place] [address] Jan, Crohn''s disease without complication, unspecified gastrointestinal tract location K50.90 and Vitamin B12 deficiency E53.8 [facility] [address] [place] [address] Dec, Crohn''s disease without complication, unspecified gastrointestinal tract location K50.90 ; Essential hypertension I10 and Vitamin B12 deficiency E53.[address] [address] Dec, Crohn''s disease without complication, unspecified gastrointestinal tract location K50.90 ; Essential hypertension I10 ; Mild intermittent asthma without complication J45.20 ; Community acquired pneumonia of left lower lobe of lung J18.1 ; Sinus tachycardia R00.0 and Vitamin B12 deficiency E53.8 [place] [address] [address] Jun, [address] [address] Jun, [address] [address] Jan, [place] [id number] [place] [phone] Jan, [facility] [address] [facility] [id number] [place] [address] Jan, IMMUNIZATIONS Vaccine Route Administration Date Status B12, VITAMIN (UP TO 1000 MCG) IM Intramuscular Jan 09, 2018 Administered SOCIAL HISTORY Never Assessed REASON FOR VISIT Lab (walk-in)b-12 injection as well PLAN OF CARE VITAL SIGNS MEDICATIONS Unknown Medications RESULTS No Results PROCEDURES Procedure Date Ordered Result Body Site LAB NOT BILLED BY [facility] Jan 09, 2018 B12, VITAMIN (UP TO 1000 MCG) Jan 09, 2018 THER/PROPH/DIAG INJ, SC/IM Jan 09, 2018 INSTRUCTIONS MEDICATIONS ADMINISTERED No Known Medications MEDICAL (GENERAL) HISTORY Type Description Date Medical History Crohns Disease Medical History Asthma Medical History Vitamin B12 deficiency Medical History Tachycardia Medical History Yosvany Filter Placement Surgical History multiple abdominal surgeries 5903-4358 Surgical History appendectomy Surgical History cholysystectomy Surgical History bowel resections x6 Hospitalization History surgery Hospitalization History pneumonia 12/2016 Hospitalization History blood clot in LLE and low potassium levels 10/2017
--- OUTSIDE RECORDS SUMMARY | 2018-03-07 07:52 | XMS REPORT | Encounter Summary ---
Author Author [facility] Organization [facility] Address Unknown Phone Unavailable Care Team Providers Care Rn Maternal Child Name Role Phone Pedrito Dubois MD PCP Encounter Details Date Type Department Care Team Description 02/01/2018 Procedure [facility] [address] [facility] [place] [address] Social History Tobacco Use Types Packs/Day Years Used Date Never Smoker Smokeless Tobacco: Never Used Alcohol Use Drinks/Week oz/Week Comments No Sex Assigned at Date Recorded Not on file as of this encounter Plan of Treatment Not on fileas of this encounter Visit Diagnoses Not on filein this encounter
--- OUTSIDE RECORDS SUMMARY | 2018-03-07 07:53 | XMS REPORT ---
Author Author TRISHA ARRIAGA Organization [facility] [address] Address [address] [place] [address] Care Team Providers Care Art Studio Teacher Name Role Phone TRISHA ARRIAGA Unavailable PROBLEMS Type Condition ICD9-CM Code IFI09-KQ Code Onset Dates Condition Status SNOMED Code Problem Personal history of venous thrombosis and embolism V12.51 Active 738679208 Problem Crohn''s disease without complication, unspecified gastrointestinal tract location K50.90 Active 18666136 Problem Chronic deep vein thrombosis (DVT) of femoral vein of left lower extremity I82.512 Active 789001449976530 Problem Unspecified peripheral vascular disease 443.9 Active 049710548 Problem Unspecified essential hypertension 401.9 Active 53598973 Problem Essential hypertension I10 Active 91865666 Problem Mild intermittent asthma without complication J45.20 Active 412614745 ALLERGIES No Information ENCOUNTERS Encounter Location Date Diagnosis [facility] [address] [place] [phone] 24 Nov, [address] [facility] [address] [place] [phone] 18 Nov, 2017 [facility] [address] [place] [phone] 13 Nov, 2017 Non- healing wound of lower extremity, left, sequela S81.802S [facility] [address] [place] [address] 10 Nov, 2017 Vitamin B12 deficiency E53.[address] [facility] [address] [place] [address] 16 Oct, 2017 Crohn''s disease without complication, unspecified gastrointestinal tract location K50.90 [facility] [address] [place] [phone] 09 Oct, 2017 Crohn''s disease of small and large intestines with complication K50.819 [facility] [place] [address] [place] [address] Oct, [address] [place] [phone] Oct, Crohn''s disease of small and large intestines with complication K50.819 ; Essential hypertension I10 and Chronic deep vein thrombosis (DVT) of femoral vein of left lower extremity I82.512 [facility] [place] [address] [place] [address] Oct, [facility] [address] [place] [address] Jan, Crohn''s disease without complication, unspecified gastrointestinal tract location K50.90 and Vitamin B12 deficiency E53.8 [facility] [address] [place] [address] Dec, Crohn''s disease without complication, unspecified gastrointestinal tract location K50.90 ; Essential hypertension I10 and Vitamin B12 deficiency E53.8 [facility] [address] [place] [address] Dec, Crohn''s disease without complication, unspecified gastrointestinal tract location K50.90 ; Essential hypertension I10 ; Mild intermittent asthma without complication J45.20 ; Community acquired pneumonia of left lower lobe of lung J18.1 ; Sinus tachycardia R00.0 and Vitamin B12 deficiency E53.8 [place] [address] [place] [phone] Jun, [place] [id number] [place] [phone] Jun, [place] [address] [place] [id number] [place] [phone] Jan, [place] [address] [place] [id number] [place] [phone] Jan, [address] [address] Jan, IMMUNIZATIONS No Known Immunizations SOCIAL HISTORY Never Assessed REASON FOR VISIT PLAN OF CARE VITAL SIGNS MEDICATIONS Medication Instructions Dosage Frequency Start Date End Date Duration Status Eliquis 5 mg Orally 2 times a day 1 tablet 12h Active RESULTS No Results PROCEDURES No Known procedures INSTRUCTIONS MEDICATIONS ADMINISTERED No Known Medications MEDICAL (GENERAL) HISTORY Type Description Date Medical History Crohns Disease Medical History Asthma Medical History Vitamin B12 deficiency Medical History Tachycardia Medical History [place] Filter Placement Surgical History multiple abdominal surgeries 4579-4901 Surgical History appendectomy Surgical History cholysystectomy Surgical History bowel resections x6 Hospitalization History surgery Hospitalization History pneumonia 12/2016 Hospitalization History blood clot in LLE and low potassium levels 10/2017
--- OUTSIDE RECORDS SUMMARY | 2018-03-07 07:53 | XMS REPORT ---
Author Author TRISHA ARRIAGA [facility] Address [address] [place] [address] Care Team Providers Care Furniture Arranger Name Role Phone TRISHA ARRIAGA Unavailable PROBLEMS Type Condition ICD9-CM Code [id number] Code Onset Dates Condition Status SNOMED Code Problem Essential hypertension I10 Active 18723074 Problem Mild intermittent asthma without complication J45.20 Active 629720251 Problem Personal history of venous thrombosis and embolism V12.51 Active 001596990 Problem Unspecified peripheral vascular disease 443.9 Active 539767091 Problem Unspecified essential hypertension 401.9 Active 07944148 ALLERGIES Substance Reaction Event Type Date Status Alupent Unknown Drug Allergy Dec, Active Morphine Unknown Drug Allergy Dec, Active Penicillins Unknown Non Drug Allergy Dec, Active Heparin Analogues Puts pt in ICU. Non Drug Allergy Dec, Active ENCOUNTERS Encounter Location Date Diagnosis [address] [id number] [place] [id number] Jan, Crohn''s disease without complication, unspecified gastrointestinal tract location K50.90 and Vitamin B12 deficiency E53.[address] [id number] [place] [id number] Dec, Crohn''s disease without complication, unspecified gastrointestinal tract location K50.90 ; Essential hypertension I10 and Vitamin B12 deficiency E53.[address] [id number] [place] [id number] Dec, Crohn''s disease without complication, unspecified gastrointestinal tract location K50.90 ; Essential hypertension I10 ; Mild intermittent asthma without complication J45.20 ; Community acquired pneumonia of left lower lobe of lung J18.1 ; Sinus tachycardia R00.0 and Vitamin B12 deficiency E53.8 [facility] [address] [facility] [id number] [place] [address] Jun, [facility] [address] [facility] [id number] [place] [address] Jun, [facility] [address] [facility] [id number] [place] [address] Jan, [facility] [address] [facility] [id number] [place] [address] Jan, [facility] [address] [facility] [id number] [place] [address] Jan, IMMUNIZATIONS Vaccine Route Administration Date Status B12, VITAMIN (UP TO 1000 MCG) IM Intramuscular Jan 21, 2017 Administered SOCIAL HISTORY Never Assessed REASON FOR VISIT ERIC f/uEstela Feliciano PLAN OF CARE Activity Details Follow Up 1 Week Reason:bp check VITAL SIGNS Height 79 in 2017-01-21 Weight 299.4 lbs 2017-01-21 Temperature 97.9 degrees Fahrenheit 2017-01-21 Heart Rate 110 bpm 2017-01-21 Respiratory Rate 18 2017-01-21 BMI 33.73 kg/m2 2017-01-21 Blood pressure systolic 144 mmHg 2017-01-21 Blood pressure diastolic 98 mmHg 2017-01-21 MEDICATIONS Medication Instructions Dosage Frequency Start Date End Date Duration Status Eliquis 5 MG Active Potassium Chloride 20 mEq take 1 tablet (20 meq) by oral route once daily with food Jan, Active Advair Diskus 250-50 MCG/DOSE Inhalation Twice a day 1 puff 12h Dec, Active Diovan 80 MG Orally Once a day 1 tablet 24h Active Diltiazem HCl ER 120 MG Orally Once a day 1 capsule on an empty stomach in the morning 24h Active Calcium Citrate +D 315-250 MG-UNIT Orally Twice a day 1 tablet 12h Active Magnesium Oxide 250 MG Orally Once a day 1 tablet as needed 24h Active RESULTS Name Result Date Reference Range [facility] 2017-01-21 Request Problem NTI Urine Tube (Marin) Rosa Maria Alvarenga CMP14 Default Request Problem Request Problem Sodium, Serum Potassium, Serum Chloride, Serum Carbon Dioxide, Total BUN Creatinine, Serum eGFR If NonAfricn Am eGFR If Africn Am BUN/Creatinine Ratio Glucose, Serum Calcium, Serum Bilirubin, Total AST (SGOT) ALT (SGPT) Alkaline Phosphatase, S Protein, Total, Serum Albumin, Serum Globulin, Total A/G Ratio Specimen Identification Status Please note GLUCOSE UREA NITROGEN (BUN) CREATININE eGFR NON-AFR. CHILEAN eGFR BUN/CREATININE RATIO SODIUM POTASSIUM CHLORIDE CARBON DIOXIDE CALCIUM PROTEIN, TOTAL ALBUMIN GLOBULIN ALBUMIN/GLOBULIN RATIO BILIRUBIN, TOTAL ALKALINE PHOSPHATASE AST ALT PROCEDURES Procedure Date Ordered Result Body Site [facility] NEW PATIENT Jan 21, 2017 B12, VITAMIN (UP TO 1000 MCG) Jan 21, 2017 THER/PROPH/DIAG INJ, SC/IM Jan 21, 2017 INSTRUCTIONS MEDICATIONS ADMINISTERED No Known Medications MEDICAL (GENERAL) HISTORY Type Description Date Medical History Crohns Disease Medical History Asthma Medical History Vitamin B12 deficiency Medical History Tachycardia Medical History [place] Filter Placement Surgical History multiple abdominal surgeries 1587-4624 Surgical History appendectomy Surgical History cholysystectomy Surgical History bowel resections x6 Hospitalization History surgery Hospitalization History pneumonia 12/2016
--- OUTSIDE RECORDS SUMMARY | 2018-03-07 07:53 | XMS REPORT ---
Author Author TRISHA ARRIAGA [facility] Address [address] [place] [address] Care Team Providers Care Whizzer Name Role Phone TRISHA ARRIAGA Unavailable PROBLEMS Type Condition ICD9-CM Code PCK66-HT Code Onset Dates Condition Status SNOMED Code Problem Essential hypertension I10 Active 93844297 Problem Mild intermittent asthma without complication J45.20 Active 715339257 Problem Personal history of venous thrombosis and embolism V12.51 Active 514919279 Problem Unspecified peripheral vascular disease 443.9 Active 266282358 Problem Unspecified essential hypertension 401.9 Active 91944657 ALLERGIES No Information ENCOUNTERS Encounter Location Date Diagnosis [address] [id number] [place] [id number] Jan, Crohn''s disease without complication, unspecified gastrointestinal tract location K50.90 and Vitamin B12 deficiency E53.[address] [id number] [place] [id number] Dec, Crohn''s disease without complication, unspecified gastrointestinal tract location K50.90 ; Essential hypertension I10 and Vitamin B12 deficiency E53.[address] [id number] [place] [id number] Dec, Crohn''s disease without complication, unspecified gastrointestinal tract location K50.90 ; Essential hypertension I10 ; Mild intermittent asthma without complication J45.20 ; Community acquired pneumonia of left lower lobe of lung J18.1 ; Sinus tachycardia R00.0 and Vitamin B12 deficiency E53.8 [facility] [address] [address] Jun, [facility] [address] [place] [id number] [address] Jun, [facility] [address] [address] Jan, [facility] [address] [facility] [id number] [place] [address] Jan, [facility] [address] [facility] [id number] [place] [address] Jan, IMMUNIZATIONS No Known Immunizations SOCIAL HISTORY Never Assessed REASON FOR VISIT Deferred Lab PLAN OF CARE VITAL SIGNS MEDICATIONS Unknown Medications RESULTS No Results PROCEDURES No Known procedures INSTRUCTIONS MEDICATIONS ADMINISTERED No Known Medications MEDICAL (GENERAL) HISTORY Type Description Date Medical History Crohns Disease Medical History Asthma Medical History Vitamin B12 deficiency Medical History Tachycardia Medical History [place] Filter Placement Surgical History multiple abdominal surgeries 7030-1773 Surgical History appendectomy Surgical History cholysystectomy Surgical History bowel resections x6 Hospitalization History surgery Hospitalization History pneumonia 12/2016
--- OUTSIDE RECORDS SUMMARY | 2018-03-07 07:53 | XMS REPORT ---
Author Author TRISHA ARRIAGA Organization [facility] [address] Address [address] [place] [address] Care Team Providers Care Orthotic Assistant Name Role Phone THOMASTRISHA CUELLAR Unavailable PROBLEMS Type Condition ICD9-CM Code [id number] Code Onset Dates Condition Status SNOMED Code Problem Personal history of venous thrombosis and embolism V12.51 Active 428260247 Problem Crohn''s disease without complication, unspecified gastrointestinal tract location K50.90 Active 19260975 Problem Chronic deep vein thrombosis (DVT) of femoral vein of left lower extremity I82.512 Active 102787566009681 Problem Unspecified peripheral vascular disease 443.9 Active 787865209 Problem Unspecified essential hypertension 401.9 Active 90679906 Problem Essential hypertension I10 Active 42233107 Problem Mild intermittent asthma without complication J45.20 Active 053436613 ALLERGIES No Information ENCOUNTERS Encounter Location Date Diagnosis [facility] [address] [place] [address] 24 Nov, 2017 [facility] [address] [place] [address] 18 Nov, [address] [facility] [address] [place] [address] 15 Nov, 2017 Hypokalemia E87.6 [facility] [address] [place] [address] 13 Nov, 2017 Non- healing wound of lower extremity, left, sequela S81.802S [facility] [address] [place] [address] 10 Nov, 2017 Vitamin B12 deficiency E53.8 [facility] [address] [place] [address] 16 Oct, 2017 Crohn''s disease without complication, unspecified gastrointestinal tract location K50.90 [facility] [address] [place] [address] 09 Oct, 2017 Crohn''s disease of small and large intestines with complication K50.819 [facility] [address] [place] [address] Oct, [facility] [address] [place] [address] Oct, Crohn''s disease of small and large intestines with complication K50.819 ; Essential hypertension I10 and Chronic deep vein thrombosis (DVT) of femoral vein of left lower extremity I82.512 [facility] [address] [place] [address] Oct, [facility] [address] [place] [address] Jan, Crohn''s disease without complication, unspecified gastrointestinal tract location K50.90 and Vitamin B12 deficiency E53.8 [facility] [address] [place] [address] Dec, Crohn''s disease without complication, unspecified gastrointestinal tract location K50.90 ; Essential hypertension I10 and Vitamin B12 deficiency E53.8 [facility] [address] [place] [address] Dec, Crohn''s disease without complication, unspecified gastrointestinal tract location K50.90 ; Essential hypertension I10 ; Mild intermittent asthma without complication J45.20 ; Community acquired pneumonia of left lower lobe of lung J18.1 ; Sinus tachycardia R00.0 and Vitamin B12 deficiency E53.8 [place] [address], [place] [address] Jun, [place] [address] [place] [id number] [place] [address] Jun, [place] [address] [place] [address] Jan, [place] [address] [place] [id number] [place] [address] Jan, [place] [address], [place] [address] Jan, IMMUNIZATIONS No Known Immunizations SOCIAL HISTORY Never Assessed REASON FOR VISIT PLAN OF CARE VITAL SIGNS MEDICATIONS Unknown Medications RESULTS No Results PROCEDURES No Known procedures INSTRUCTIONS MEDICATIONS ADMINISTERED No Known Medications MEDICAL (GENERAL) HISTORY Type Description Date Medical History Crohns Disease Medical History Asthma Medical History Vitamin B12 deficiency Medical History Tachycardia Medical History [place] Filter Placement Surgical History multiple abdominal surgeries 4946-9006 Surgical History appendectomy Surgical History cholysystectomy Surgical History bowel resections x6 Hospitalization History surgery Hospitalization History pneumonia 12/2016 Hospitalization History blood clot in LLE and low potassium levels 10/2017
--- OUTSIDE RECORDS SUMMARY | 2018-03-07 07:53 | XMS REPORT ---
Author Author TOBIAS CHAN Organization [facility] [address] Address [address] [place] [address] Care Team Providers Care Melt Supervisor Name Role Phone TOBIAS CHAN Unavailable PROBLEMS Type Condition ICD9-CM Code PHN24-PX Code Onset Dates Condition Status SNOMED Code Problem Personal history of venous thrombosis and embolism V12.51 Active 381421735 Problem Crohn''s disease without complication, unspecified gastrointestinal tract location K50.90 Active 54565751 Problem Chronic deep vein thrombosis (DVT) of femoral vein of left lower extremity I82.512 Active 161276176895429 Problem Unspecified peripheral vascular disease 443.9 Active 200502739 Problem Unspecified essential hypertension 401.9 Active 69085387 Problem Essential hypertension I10 Active 65904177 Problem Mild intermittent asthma without complication J45.20 Active 250411229 ALLERGIES Substance Reaction Event Type Date Status Alupent Unknown Drug Allergy Nov, Active Morphine Unknown Drug Allergy Nov, Active Penicillins Unknown Non Drug Allergy Nov, Active Heparin Analogues Puts pt in ICU. Non Drug Allergy Nov, Active ENCOUNTERS Encounter Location Date [facility] [address] [place] [address] Nov, Crohn''s disease without complication, unspecified gastrointestinal tract location K50.90 ; Chronic deep vein thrombosis (DVT) of femoral vein of left lower extremity I82.512 ; Essential hypertension I10 and Vitamin B12 deficiency E53.8 [facility] [place] [address] [place] [address] 15 Nov, 2017 Hypokalemia E87.6 [facility] [address] [place] [address] 13 Nov, 2017 Non- healing wound of lower extremity, left, sequela S81.802S [facility] [address] [place] [address] Nov, Vitamin B12 deficiency E53.8 [facility] [address] [place] [address] Oct, Crohn''s disease without complication, unspecified gastrointestinal tract location K50.90 [facility] [address] [place] [address] Oct, Crohn''s disease of small and large intestines with complication K50.819 [facility] [address] [place] [address] Oct, [facility] [address] [place] [address] Oct, Crohn''s disease of small and large intestines with complication K50.819 ; Essential hypertension I10 and Chronic deep vein thrombosis (DVT) of femoral vein of left lower extremity I82.512 [facility] [address] [place] [address] Oct, [address] [address] Jan, Crohn''s disease without complication, unspecified gastrointestinal tract location K50.90 and Vitamin B12 deficiency E53.8 [facility] [address] [place] [address] Dec, Crohn''s disease without complication, unspecified gastrointestinal tract location K50.90 ; Essential hypertension I10 and Vitamin B12 deficiency E53.[address] [address] Dec, Crohn''s disease without complication, unspecified gastrointestinal tract location K50.90 ; Essential hypertension I10 ; Mild intermittent asthma without complication J45.20 ; Community acquired pneumonia of left lower lobe of lung J18.1 ; Sinus tachycardia R00.0 and Vitamin B12 deficiency E53.8 [place] [address] [place] [address] [id number], [place] [address] Jun, [facility] [address], [place] [address] Jun, [facility] [address] [place] [id number], [place] [address] Jan, [facility] [address] [facility] [id number] [place] [address] Jan, [facility] [address] [facility] [id number] [place] [address] Jan, IMMUNIZATIONS No Known Immunizations SOCIAL HISTORY Never Assessed REASON FOR VISIT wound on back of left leg. has been there for a couple months with no improvement. area rodríguez. [facility] PLAN OF CARE Activity Details Follow Up tuesday Dr. Dubois Double book spot please. Reason: VITAL SIGNS Height 79 in 2017-12-08 Weight 323.8 lbs 2017-12-08 Temperature 97.3 degrees Fahrenheit 2017-12-08 Heart Rate 100 bpm 2017-12-08 Respiratory Rate 18 2017-12-08 BMI 36.47 kg/m2 2017-12-08 Blood pressure systolic 156 mmHg 2017-12-08 Blood pressure diastolic 84 mmHg 2017-12-08 MEDICATIONS Medication Instructions Dosage Frequency Start Date End Date Duration Status Advair Diskus 250-50 MCG/DOSE Inhalation Twice a day 1 puff 12h Dec, Active Doxycycline Hyclate 100 mg Orally twice a day 1 capsule 12h Nov, Nov, 10 day(s) Active Magnesium Oxide 250 MG Orally Once a day 1 tablet as needed 24h Active Losartan Potassium 50 mg Orally Once a day 1 tablet 24h 06 Oct, 2017 30 day(s) Active Calcium Citrate +D 315-250 MG-UNIT Orally Twice a day 1 tablet 12h Active Triamcinolone Acetonide 0.1 % Externally Twice a day 1 application to affected area 12h Nov, 7 days Active Eliquis 5 mg Orally 2 times a day 1 tablet 12h Active Potassium Chloride 20 mEq take 1 tablet (20 meq) by oral route once daily with food Jan, Active Mercaptopurine 50 MG Orally Once a day 1 tablet 24h Active Vitamin B 12 Active RESULTS No Results PROCEDURES Procedure Date Ordered Result Body Site LAB NOT BILLED BY [facility] Dec 08, 2017 VENIPUNCT, ROUTINE* Dec 08, 2017 [facility] VISIT ESTABLISHED PATIENT Dec 08, 2017 INSTRUCTIONS MEDICATIONS ADMINISTERED No Known Medications MEDICAL (GENERAL) HISTORY Type Description Date Medical History Crohns Disease Medical History Asthma Medical History Vitamin B12 deficiency Medical History Tachycardia Medical History [place] Filter Placement Surgical History multiple abdominal surgeries 2818-0529 Surgical History appendectomy Surgical History cholysystectomy Surgical History bowel resections x6 Hospitalization History surgery Hospitalization History pneumonia 12/2016 Hospitalization History blood clot in LLE and low potassium levels 10/2017
--- OUTSIDE RECORDS SUMMARY | 2018-03-07 07:53 | XMS REPORT ---
Author Author TRISHA ARRIAGA Organization [facility] [address] Address [address] [place] [address] Care Team Providers Care Application Support Intern Name Role Phone THOMASTRISHA CUELLAR Unavailable PROBLEMS Type Condition ICD9-CM Code RSH63-XM Code Onset Dates Condition Status SNOMED Code Problem Personal history of venous thrombosis and embolism V12.51 Active 204292777 Problem Crohn''s disease without complication, unspecified gastrointestinal tract location K50.90 Active 73835858 Problem Chronic deep vein thrombosis (DVT) of femoral vein of left lower extremity I82.512 Active 862719203511840 Problem Unspecified peripheral vascular disease 443.9 Active 301680273 Problem Unspecified essential hypertension 401.9 Active 94325906 Problem Essential hypertension I10 Active 27494581 Problem Mild intermittent asthma without complication J45.20 Active 463687844 ALLERGIES No Information ENCOUNTERS Encounter Location Date Diagnosis [facility] [address] [place] [address] [place] [address] [place] [address] 20 Nov, 2017 Crohn''s disease without complication, unspecified gastrointestinal tract location K50.90 ; Chronic deep vein thrombosis (DVT) of femoral vein of left lower extremity I82.512 ; Essential hypertension I10 and Vitamin B12 deficiency E53.8 [facility] [place] [address] [place] [address] [place] [address] 15 Nov, 2017 Hypokalemia E87.6 [facility] [address] [place] [address] [place] [address] 13 Nov, 2017 Non- healing wound of lower extremity, left, sequela S81.802S [facility] [address] [place] [place] [address] [place] [address] 10 Nov, 2017 Vitamin B12 deficiency E53.8 [facility] [address] [place] [address] [place] [address] [place] [address] 16 Oct, 2017 Crohn''s disease without complication, unspecified gastrointestinal tract location K50.90 [facility] [address] [place] [address] Oct, Crohn''s disease of small and large intestines with complication K50.819 [facility] [place] [address] [place] [address] Oct, [facility] [address] [place] [address] Oct, Crohn''s disease of small and large intestines with complication K50.819 ; Essential hypertension I10 and Chronic deep vein thrombosis (DVT) of femoral vein of left lower extremity I82.512 [facility] [place] [address] [place] [address] Oct, [facility] [place] [address] [place] [address] Jan, Crohn''s disease without complication, unspecified gastrointestinal tract location K50.90 and Vitamin B12 deficiency E53.8 [facility] [address] [place] [address] Dec, Crohn''s disease without complication, unspecified gastrointestinal tract location K50.90 ; Essential hypertension I10 and Vitamin B12 deficiency E53.8 [facility] [address] [place] [address] Dec, Crohn''s disease without complication, unspecified gastrointestinal tract location K50.90 ; Essential hypertension I10 ; Mild intermittent asthma without complication J45.20 ; Community acquired pneumonia of left lower lobe of lung J18.1 ; Sinus tachycardia R00.0 and Vitamin B12 deficiency E53.8 [place] [address] [place] [address] Jun, [facility] [address], [place] [address] Jun, [facility] [address] [place] [id number] [place] [address] Jan, [facility] [address], [place] [address] Jan, [place] [address] [place] [id number] [place] [address] Jan, IMMUNIZATIONS No Known Immunizations SOCIAL HISTORY Never Assessed REASON FOR VISIT PLAN OF CARE Activity Details Pending Test BMP VITAL SIGNS MEDICATIONS Medication Instructions Dosage Frequency Start Date End Date Duration Status Potassium Chloride ER 20 meq Orally twice a day 2 tablets with food 12h 15 Nov, 2017 Dec, 30 day(s) Active RESULTS No Results PROCEDURES Procedure Date Ordered Result Body Site LAB NOT BILLED BY [facility] Dec 10, 2017 INSTRUCTIONS MEDICATIONS ADMINISTERED No Known Medications MEDICAL (GENERAL) HISTORY Type Description Date Medical History Crohns Disease Medical History Asthma Medical History Vitamin B12 deficiency Medical History Tachycardia Medical History [place] Filter Placement Surgical History multiple abdominal surgeries 3984-1327 Surgical History appendectomy Surgical History cholysystectomy Surgical History bowel resections x6 Hospitalization History surgery Hospitalization History pneumonia 12/2016 Hospitalization History blood clot in LLE and low potassium levels 10/2017
--- OUTSIDE RECORDS SUMMARY | 2018-03-07 07:53 | XMS REPORT ---
Author Author TRISHA ARRIAGA [facility] [address] Address [address] [place] [address] Care Team Providers Care Animal Therapist Name Role Phone TRISHA ARRIAGA Unavailable PROBLEMS Type Condition ICD9-CM Code HCZ83-DD Code Onset Dates Condition Status SNOMED Code Problem Personal history of venous thrombosis and embolism V12.51 Active 862295914 Problem Crohn''s disease without complication, unspecified gastrointestinal tract location K50.90 Active 25829150 Problem Chronic deep vein thrombosis (DVT) of femoral vein of left lower extremity I82.512 Active 619954813829234 Problem Unspecified peripheral vascular disease 443.9 Active 730064780 Problem Unspecified essential hypertension 401.9 Active 37490014 Problem Essential hypertension I10 Active 39794899 Problem Mild intermittent asthma without complication J45.20 Active 408958062 ALLERGIES Substance Reaction Event Type Date Status Alupent Unknown Drug Allergy Nov, Active Morphine Unknown Drug Allergy Nov, Active Penicillins Unknown Non Drug Allergy Nov, Active Heparin Analogues Puts pt in ICU. Non Drug Allergy Nov, Active ENCOUNTERS Encounter Location Date Diagnosis [facility] [address] [place] [address] Nov, Crohn''s disease without complication, unspecified gastrointestinal tract location K50.90 ; Chronic deep vein thrombosis (DVT) of femoral vein of left lower extremity I82.512 ; Essential hypertension I10 and Vitamin B12 deficiency E53.8 [facility] [place] [address] [place] [address] 15 Nov, 2017 [facility]okalemia E87.6 [facility] [address] [place] [address] 13 Nov, 2017 Non- healing wound of lower extremity, left, sequela S81.802S [facility] [address] [place] [address] 10 Nov, 2017 Vitamin B12 deficiency E53.8 [facility] [address] [place] [address] Oct, Crohn''s disease without complication, unspecified gastrointestinal tract location K50.90 [facility] [address] [place] [address] Oct, Crohn''s disease of small and large intestines with complication K50.819 [facility] [place] [address] [place] [address] Oct, [facility] [address] [place] [address] Oct, Crohn''s disease of small and large intestines with complication K50.819 ; Essential hypertension I10 and Chronic deep vein thrombosis (DVT) of femoral vein of left lower extremity I82.512 [facility] [address] [address] Oct, [facility] [address] [address] Jan, Crohn''s disease without complication, unspecified gastrointestinal tract location K50.90 and Vitamin B12 deficiency E53.8 [facility] [address] [place] [address] Dec, Crohn''s disease without complication, unspecified gastrointestinal tract location K50.90 ; Essential hypertension I10 and Vitamin B12 deficiency E53.8 [facility] [place] [address] [place] [address] Dec, Crohn''s disease without complication, unspecified gastrointestinal tract location K50.90 ; Essential hypertension I10 ; Mild intermittent asthma without complication J45.20 ; Community acquired pneumonia of left lower lobe of lung J18.1 ; Sinus tachycardia R00.0 and Vitamin B12 deficiency E53.8 [place] [id number] [address] Jun, [facility] [place] [id number] [address] Jun, [place] [id number] [address] Jan, [facility] [place] [address] [facility] [id number] [place] [address] Jan, [facility] [place] [address] [facility] [id number] [place] [address] Jan, IMMUNIZATIONS No Known Immunizations SOCIAL HISTORY Never Assessed REASON FOR VISIT Hospital f/u, [facility] PLAN OF CARE Activity Details Follow Up 1 Week Reason:call or VITAL SIGNS Height 79 in 2017-12-15 Weight 325.7 lbs 2017-12-15 Temperature 95.9 degrees Fahrenheit 2017-12-15 Heart Rate 98.0 bpm 2017-12-15 Respiratory Rate 18 2017-12-15 BMI 36.69 kg/m2 2017-12-15 Blood pressure systolic 120 mmHg 2017-12-15 Blood pressure diastolic 84 mmHg 2017-12-15 MEDICATIONS Medication Instructions Dosage Frequency Start Date End Date Duration Status Magnesium Oxide 250 MG Orally Once a day 1 tablet as needed 24h Active Advair Diskus 250-50 MCG/DOSE Inhalation Twice a day 1 puff 12h Dec, Active Calcium Citrate +D 315-250 MG-UNIT Orally Twice a day 1 tablet 12h Active Vitamin B 12 Active Potassium Chloride 20 mEq take 1 tablet (20 meq) by oral route once daily with food Jan, Active Mercaptopurine 50 MG Orally Once a day 1 tablet 24h Active Eliquis 5 mg Orally 2 times a day 1 tablet 12h Active Triamcinolone Acetonide 0.1 % Externally Twice a day 1 application to affected area 12h Nov, 7 days Active Losartan Potassium 50 mg Orally Once a day 1 tablet 24h Oct, 30 day(s) Active RESULTS No Results PROCEDURES Procedure Date Ordered Result Body Site LAB NOT BILLED BY [facility] Dec 15, 2017 [facility] VISIT ESTABLISHED PATIENT Dec 15, 2017 INSTRUCTIONS MEDICATIONS ADMINISTERED No Known Medications MEDICAL (GENERAL) HISTORY Type Description Date Medical History Crohns Disease Medical History Asthma Medical History Vitamin B12 deficiency Medical History Tachycardia Medical History Yosvany Filter Placement Surgical History multiple abdominal surgeries 2586-2194 Surgical History appendectomy Surgical History cholysystectomy Surgical History bowel resections x6 Hospitalization History surgery Hospitalization History pneumonia 12/2016 Hospitalization History blood clot in LLE and low potassium levels 10/2017
--- OUTSIDE RECORDS SUMMARY | 2018-03-07 07:53 | XMS REPORT ---
Author Author TRISHA ARRIAGA [facility] Address [address] [place] [address] Care Team Providers Care Gis Programmer Name Role Phone TRISHA ARRIAGA Unavailable PROBLEMS Type Condition ICD9-CM Code UOP60-WK Code Onset Dates Condition Status SNOMED Code Problem Essential hypertension I10 Active 49731316 Problem Mild intermittent asthma without complication J45.20 Active 566412010 Problem Personal history of venous thrombosis and embolism V12.51 Active 826803668 Problem Unspecified peripheral vascular disease 443.9 Active 978141113 Problem Unspecified essential hypertension 401.9 Active 40289580 ALLERGIES No Information ENCOUNTERS Encounter Location Date Diagnosis [address] [id number] [place] [id number] Jan, Crohn''s disease without complication, unspecified gastrointestinal tract location K50.90 and Vitamin B12 deficiency E53.[address] [id number] [place] [id number] Dec, Crohn''s disease without complication, unspecified gastrointestinal tract location K50.90 ; Essential hypertension I10 and Vitamin B12 deficiency E53.[address] [id number] [place] [id number] Dec, Crohn''s disease without complication, unspecified gastrointestinal tract location K50.90 ; Essential hypertension I10 ; Mild intermittent asthma without complication J45.20 ; Community acquired pneumonia of left lower lobe of lung J18.1 ; Sinus tachycardia R00.0 and Vitamin B12 deficiency E53.8 [facility] [id number], [place] [address] Jun, [facility] [id number] [address] Jun, [facility] [address], [place] [address] Jan, [facility] [address] [facility] [id number] [place] [address] Jan, [facility] [address] [facility] [id number] [address] Jan, IMMUNIZATIONS Vaccine Route Administration Date Status B12, VITAMIN (UP TO 1000 MCG) IM Intramuscular Jan 25, 2017 Administered SOCIAL HISTORY Never Assessed REASON FOR VISIT Lab, Julianna Crespo RN PLAN OF CARE Activity Details Follow Up prn Reason: VITAL SIGNS MEDICATIONS Unknown Medications RESULTS No Results PROCEDURES Procedure Date Ordered Result Body Site ROUTINE VENIPUNCTURE 2017-01-25 N/A LAB NOT BILLED BY [facility] Jan 25, 2017 THER/PROPH/DIAG INJ, SC/IM Jan 25, 2017 B12, VITAMIN (UP TO 1000 MCG) Jan 25, 2017 INSTRUCTIONS MEDICATIONS ADMINISTERED No Known Medications MEDICAL (GENERAL) HISTORY Type Description Date Medical History Crohns Disease Medical History Asthma Medical History Vitamin B12 deficiency Medical History Tachycardia Medical History Yosvany Filter Placement Surgical History multiple abdominal surgeries 1063-3089 Surgical History appendectomy Surgical History cholysystectomy Surgical History bowel resections x6 Hospitalization History surgery Hospitalization History pneumonia 12/2016
--- OUTSIDE RECORDS SUMMARY | 2018-03-07 07:53 | XMS REPORT ---
Author Author TRISHA ARRIAGA Organization [facility] [address] Address [address] [place] [address] Care Team Providers Care Communications Editor Name Role Phone THOMASTRISHA CUELLAR Unavailable PROBLEMS Type Condition ICD9-CM Code LQD44-UA Code Onset Dates Condition Status SNOMED Code Problem Personal history of venous thrombosis and embolism V12.51 Active 489780737 Problem Crohn''s disease without complication, unspecified gastrointestinal tract location K50.90 Active 60401954 Problem Chronic deep vein thrombosis (DVT) of femoral vein of left lower extremity I82.512 Active 396669947019854 Problem Unspecified peripheral vascular disease 443.9 Active 174649426 Problem Unspecified essential hypertension 401.9 Active 36877443 Problem Essential hypertension I10 Active 76889477 Problem Mild intermittent asthma without complication J45.20 Active 933350274 ALLERGIES No Information ENCOUNTERS Encounter Location Date Diagnosis [facility] [address] [place] [phone] 24 Nov, 2017 [facility] [address] [place] [address] 18 Nov, 2017 [facility] [place] [address] [place] [address] 15 Nov, 2017 Hypokalemia E87.6 [facility] [address] [place] [address] 13 Nov, 2017 Non- healing wound of lower extremity, left, sequela S81.802S [facility] [address] [place] [address] 10 Nov, 2017 Vitamin B12 deficiency E53.8 [facility] [address] [place] [address] 16 Oct, 2017 Crohn''s disease without complication, unspecified gastrointestinal tract location K50.90 [facility] [address] [place] [address] 09 Oct, 2017 Crohn''s disease of small and large intestines with complication K50.819 [facility] [place] [address] [place] [address] Oct, [address] [address] Oct, Crohn''s disease of small and large intestines with complication K50.819 ; Essential hypertension I10 and Chronic deep vein thrombosis (DVT) of femoral vein of left lower extremity I82.512 [facility] [address] [place] [address] Oct, [facility] [address] [place] [address] Jan, Crohn''s disease without complication, unspecified gastrointestinal tract location K50.90 and Vitamin B12 deficiency E53.8 [facility] [address] [place] [address] Dec, Crohn''s disease without complication, unspecified gastrointestinal tract location K50.90 ; Essential hypertension I10 and Vitamin B12 deficiency E53.8 [facility] [address] [place] [address] Dec, Crohn''s disease without complication, unspecified gastrointestinal tract location K50.90 ; Essential hypertension I10 ; Mild intermittent asthma without complication J45.20 ; Community acquired pneumonia of left lower lobe of lung J18.1 ; Sinus tachycardia R00.0 and Vitamin B12 deficiency E53.8 [place] [address], [place] [address] Jun, [place] [id number] [place] [address] Jun, [place] [id number] [place] [address] Jan, [place] [id number] [place] [address] Jan, [place] [address], [place] [address] Jan, IMMUNIZATIONS No Known Immunizations SOCIAL HISTORY Never Assessed REASON FOR VISIT [facility] PLAN OF CARE Activity Details Follow Up prn Reason: VITAL SIGNS MEDICATIONS Unknown Medications RESULTS No Results PROCEDURES Procedure Date Ordered Result Body Site LAB NOT BILLED BY [facility] Nov 03, 2017 VENORALIA, ROUTINE* Nov 03, 2017 INSTRUCTIONS MEDICATIONS ADMINISTERED No Known Medications MEDICAL (GENERAL) HISTORY Type Description Date Medical History Crohns Disease Medical History Asthma Medical History Vitamin B12 deficiency Medical History Tachycardia Medical History [place] Filter Placement Surgical History multiple abdominal surgeries 6719-0526 Surgical History appendectomy Surgical History cholysystectomy Surgical History bowel resections x6 Hospitalization History surgery Hospitalization History pneumonia 12/2016 Hospitalization History blood clot in LLE and low potassium levels 10/2017
--- OUTSIDE RECORDS SUMMARY | 2018-03-07 07:54 | XMS REPORT ---
Author Author TRISHA ARRIAGA Organization [facility] [address] Address [address] [place] [address] Care Team Providers Care Hard Metals Engraver Hand Name Role Phone TRISHA ARRIAGA Unavailable PROBLEMS Type Condition ICD9-CM Code KWB27-KA Code Onset Dates Condition Status SNOMED Code Problem Personal history of venous thrombosis and embolism V12.51 Active 562912580 Problem Crohn''s disease without complication, unspecified gastrointestinal tract location K50.90 Active 35356527 Problem Chronic deep vein thrombosis (DVT) of femoral vein of left lower extremity I82.512 Active 196257631857906 Problem Unspecified peripheral vascular disease 443.9 Active 804285779 Problem Unspecified essential hypertension 401.9 Active 49686921 Problem Essential hypertension I10 Active 14864353 Problem Mild intermittent asthma without complication J45.20 Active 455522406 ALLERGIES No Information ENCOUNTERS Encounter Location Date Diagnosis [facility] [address] [place] [address] 24 Nov, 2017 Medicare annual wellness visit, initial Z00.[address] [facility] [address] [place] [address] 20 Nov, 2017 [facility] [place] [address] [place] [address] 15 Nov, 2017 Hypokalemia E87.[address] [facility] [address] [place] [address] 13 Nov, 2017 Non- healing wound of lower extremity, left, sequela S81.802S [facility] [address] [place] [address] 10 Nov, 2017 Vitamin B12 deficiency E53.[address] [facility] [address] [place] [address] 16 Oct, 2017 Crohn''s disease without complication, unspecified gastrointestinal tract location K50.[address] [facility] [address] [place] [address] Oct, Crohn''s disease of small and large intestines with complication K50.819 [facility] [place] [address] [place] [address] Oct, [address] [address] Oct, Crohn''s disease of small and large intestines with complication K50.819 ; Essential hypertension I10 and Chronic deep vein thrombosis (DVT) of femoral vein of left lower extremity I82.512 [facility] [address] [address] Oct, [facility] [address] [address] Jan, Crohn''s disease without complication, unspecified gastrointestinal tract location K50.90 and Vitamin B12 deficiency E53.8 [facility] [place] [address] [place] [address] Dec, Crohn''s disease without complication, unspecified gastrointestinal tract location K50.90 ; Essential hypertension I10 and Vitamin B12 deficiency E53.8 [facility] [place] [address] [place] [address] Dec, Crohn''s disease without complication, unspecified gastrointestinal tract location K50.90 ; Essential hypertension I10 ; Mild intermittent asthma without complication J45.20 ; Community acquired pneumonia of left lower lobe of lung J18.1 ; Sinus tachycardia R00.0 and Vitamin B12 deficiency E53.8 [place] [address] [place] [address] Jun, [place] [address] [place] [address] Jun, [place] [id number] [place] [address] Jan, [place] [id number] [place] [address] Jan, [place] [address] [place] [address] Jan, IMMUNIZATIONS No Known Immunizations SOCIAL HISTORY Never Assessed REASON FOR VISIT Lab (walk-in), [facility] PLAN OF CARE Activity Details Follow Up prn Reason: VITAL SIGNS MEDICATIONS Unknown Medications RESULTS No Results PROCEDURES Procedure Date Ordered Result Body Site LAB NOT BILLED BY [facility] Nov 10, 2017 VENIPUNCT, ROUTINE* Nov 10, 2017 INSTRUCTIONS MEDICATIONS ADMINISTERED No Known Medications MEDICAL (GENERAL) HISTORY Type Description Date Medical History Crohns Disease Medical History Asthma Medical History Vitamin B12 deficiency Medical History Tachycardia Medical History [place] Filter Placement Surgical History multiple abdominal surgeries 7561-2367 Surgical History appendectomy Surgical History cholysystectomy Surgical History bowel resections x6 Hospitalization History surgery Hospitalization History pneumonia 12/2016 Hospitalization History blood clot in LLE and low potassium levels 10/2017
--- OUTSIDE RECORDS SUMMARY | 2018-03-07 07:54 | XMS REPORT | Continuity of Care Document ---
Author Author [facility] Organization [facility] Address Unknown Phone Unavailable Care Team Providers Care See Supervisor Name Role Phone NO, LOCAL PHYSICIAN PP Unavailable Insurance Providers Payer Name Policy Number Subscriber Name Relationship Wps Medicare [id number] Milind Jon 01 Self / Same As Patient Advance Directives Directive Response Recorded Date Advance Directives N 12/24/12 7:42pm Health Care Power of Meat Puller N 12/24/12 7:42pm Organ Donor N 12/24/12 7:42pm Problems No Known Problems or Medical conditions. Family History History Response Recorded Date/Time Hx Family Breast Cancer N 11/20/12 10: 50pm Hx Family Lung Cancer Y FATHER OF LUNG 11/20/12 10:50pm Hx Family Colorectal Cancer N 11/20/12 10 :50pm Hx Family Cardiac Disorders N 11/20/12 10 :50pm Hx Family Stroke N 11/20/12 10:50pm Hx Family Hypertension N 11/20/12 10: 50pm Hx Family Myocardial Infarction N 10:50pm Social History History Response Recorded Date/Time Alcohol Use Rarely Uses 12/24/12 7:42pm Recreational Drug Use N 12/24/12 7:42pm Hospitalization with Isolation Denies 7:42pm Allergies, Adverse Reactions, Alerts Allergen Type Severity Reaction Last Updated metaproterenol sulfate Allergy 03/12/12 Heparin Analogues Allergy 03/12/12 Penicillins Allergy 03/12/12 morphine Allergy 03/12/12 Medications Medication Dose Units Route Sig Qty Days Fluticasone Propionate (Flovent Hfa) 2 Puff IH BID 1 Methylprednisolone (Medrol Dose Pack) 1 Packet PO UD 1 Fluticasone Propionate (Flovent Hfa 44 Mcg) 2 Puff INH BID PRN Albuterol (Proair Hfa) 2 Puff IH Q4H PRN Fondaparinux Sodium (Arixtra (Non-Formulary)) 10 Mg SQ DAILY Cyanocobalamin 50 Mcg IJ MONTHLY Tramadol HCl (Ultram) 50 Mg PO TID Albuterol (Proair Hfa) 8.5 Gm IH Q4H 1 Fluticasone Propionate (Flovent Hfa 44 Mcg) 2 Puff INH BID 30 Benazepril HCl (Lotensin 10 Mg) 10 Mg PO DAILY Loratadine 10 Mg PO DAILY 30 Fondaparinux Sodium (Arixtra (Non-Formulary)) 7.5 Mg SQ DAILY Acetaminophen/Hydrocodone Bitart (Lortab 5 Mg) 1 - 2 Ea PO Q 4 - 6 HR PRN 20 Trimethoprim/Sulfamethoxazole (Bactrim Ds) 1 Ea PO BID 10 Prednisone 20 Mg PO DAILY 3 Acetaminophen/Hydrocodone Bitart (Vicodin 5-500 Tablet) 1 - 2 Each PO Q4HR PRN 14 Cephalexin Monohydrate (Cephalexin) 1 Each PO TID 7 Fentanyl Citrate/Pf (Fentanyl 100 Mcg/2 Ml Vial) 50 Mcg IV Acetaminophen/Hydrocodone Bitart (Vicodin 5-500 Tablet) 1 - 2 Each PO Q4HR PRN 10 [6MPCAPTUPRINE] PO DAILY Response Recorded Date/Time Status not known Unknown Results No Known Relevant Diagnostic Tests, Laboratory Data and/or Discharge Summary. Procedures Procedure Code Date VENOUS CATHETERIZATION NEC 38.93 Encounters Encounter Location Date/Time Departed Emergency Room [facility] 7:32pm Discharged Inpatient [facility] 10:00pm
--- OUTSIDE RECORDS SUMMARY | 2018-03-07 07:54 | XMS REPORT | Continuity of Care Document ---
Author Author [facility] Organization [facility] Address Unknown Phone Unavailable Care Team Providers Care Human Resources Assistant Name Role Phone NO, LOCAL PHYSICIAN PP Unavailable Insurance Providers Payer Name Policy Number Subscriber Name Relationship [employer] Medicare [id number] Milind Jon 01 Self / Same As Patient Advance Directives Directive Response Recorded Date Advance Directives N 11/20/12 10:50pm Health Care Power of Digital Media Associate N 11/20/12 10:50pm Organ Donor N 11/20/12 10:50pm Problems No Known Problems or Medical conditions. [...] Response Recorded Date/Time Alcohol Use Rarely Uses 11/20/12 10:50pm Recreational Drug Use N 11/20/12 10:50pm Hospitalization with Isolation Denies 07/08 5:14pm Allergies, Adverse Reactions, Alerts Allergen Type Severity Reaction Last Updated metaproterenol sulfate Allergy 03/12/12 Heparin Analogues Allergy 03/12/12 Penicillins Allergy 03/12/12 morphine Allergy 03/12/12 Medications Medication Dose Units Route Sig Qty Days Fluticasone Propionate (Flovent Hfa 44 Mcg) 2 [...] Recorded Date/Time Status not known Unknown Results Test Date Result Interp. Ref. Range Activated Partial Thromboplast Time August 20, 2012 10:58pm 39 SEC H 24-35 Alanine Aminotransferase (ALT/SGPT) November 20, 2012 8:17pm 38 U/L N 30-65 Albumin November 20, 2012 8:17pm 3.3 G/DL L 3.4-5.0 Alkaline Phosphatase November 20, 2012 8:17pm 75 U/L N 50-136 Amylase Level November 20, 2012 8:17pm 33 U/L N 25-115 Aspartate Amino Transf (AST/SGOT) November 20, 2012 8:17pm 26 U/L N 15-37 BUN/Creatinine Ratio November 20, 2012 8:17pm 10 - Basophils # (Auto) November 20, 2012 8:17pm 0.0 10^3/uL N 0.0-0.1 Basophils (%) (Auto) November 20, 2012 8:17pm 0 % N 0-10 Blood Urea Nitrogen November 20, 2012 8:17pm 10 MG/DL N 7-18 C-Reactive Protein August 20, 2012 10:58pm 0.4 MG/DL N 0.2-0.9 Calcium Level November 20, 2012 8:17pm 8.2 MG/DL L 8.5-10.1 Carbon Dioxide Level November 20, 2012 8:17pm 31 MMOL/L N 21-32 Chloride Level November 20, 2012 8:17pm 102 MMOL/L N 101-110 Creatinine November 20, 2012 8:17pm 1.0 MG /DL N 0.6-1.3 Eosinophils # (Auto) November 20, 2012 8:17pm 0.1 10^3/uL N 0.0-0.3 Eosinophils (%) (Auto) November 20, 2012 8:17pm 1 % N 0-10 Glucose Level November 20, 2012 8:17pm 104 MG/DL N 74-106 Hematocrit November 20, 2012 8:17pm 39 % L 40-54 Hemoglobin November 20, 2012 8:17pm 13.1 G /DL L 13.3-17.7 Lipase November 20, 2012 8:17pm 129 U/L N 73-393 Lymphocytes # (Auto) November 20, 2012 8:17pm 1.1 X 10^3 N 1.0-4.0 Lymphocytes (%) (Auto) November 20, 2012 8:17pm 16 % N 12-44 Mean Corpuscular Hemoglobin November 20, 2012 8:17pm 26 PG N 25-34 Mean Corpuscular Hemoglobin Concent November 20, 2012 8:17pm 34 G/DL N 32-36 Mean Corpuscular Volume November 20, 2012 8:17pm 78 FL L 80-99 Mean Platelet Volume November 20, 2012 8:17pm 10.2 FL N 7.4-10.4 Monocytes # (Auto) November 20, 2012 8:17pm 0.6 X 10^3 N 0.0-1.0 Monocytes (%) (Auto) November 20, 2012 8:17pm 9 % N 0-12 Neutrophils # (Auto) November 20, 2012 8:17pm 5.2 X 10^3 N 1.8-7.8 Neutrophils (%) (Auto) November 20, 2012 8:17pm 74 % N 42-75 Platelet Count November 20, 2012 8:17pm 268 10^3/uL N 130-400 Potassium Level November 20, 2012 8:17pm 3.3 MMOL/L L 3.6-5.0 Prothromb Time International Ratio March 13, 2012 12: 58am 1.0 N 0.8-1.4 Prothrombin Time August 20, 2012 10:58pm 13.9 SEC N 12.2-14.7 Red Blood Count November 20, 2012 8:17pm 5.04 10^6/uL N 4.35-5.85 Red Cell Distribution Width November 20, 2012 8:17pm 14.9 % H 10.0-14.5 Sodium Level November 20, 2012 8:17pm 138 MMOL/L N 135-145 Total Bilirubin November 20, 2012 8:17pm 0.5 MG/DL N 0.0-1.0 Total Protein November 20, 2012 8:17pm 7.5 G/DL N 6.4-8.2 Troponin I June 27, 2012 12:39am < 0.10 NG/ML 0.00-0.10 Urine Bacteria November 20, 2012 8:27pm TRACE /HPF - Urine Bilirubin November 20, 2012 8:27pm NEGATIVE - Urine Casts November 20, 2012 8:27pm NONE /LPF - Urine Clarity November 20, 2012 8:27pm CLEAR - Urine Color November 20, 2012 8:27pm YELLOW - Urine Crystals November 20, 2012 8:27pm NONE /LPF - Urine Culture Indicated November 20, 2012 8:27pm NO - Urine Glucose (UA) November 20, 2012 8:27pm NEGATIVE - Urine Ketones November 20, 2012 8:27pm NEGATIVE - Urine Leukocyte Esterase November 20, 2012 8:27pm NEGATIVE - Urine Mucus November 20, 2012 8:27pm MODERATE /LPF H - Urine Nitrite November 20, 2012 8:27pm NEGATIVE - Urine Protein November 20, 2012 8:27pm 1+ H - Urine RBC November 20, 2012 8:27pm NONE / HPF - Urine Specific [place] November 20, 2012 8:27pm 1.020 - Urine Squamous Epithelial Cells November 20, 2012 8:27pm 0-2 /HPF - Urine Urobilinogen November 20, 2012 8:27pm NORMAL MG/DL - Urine WBC November 20, 2012 8:27pm 0-2 / HPF - Urine pH November 20, 2012 8:27pm 5 - White Blood Count November 20, 2012 8:17pm 7.1 10^3/uL N 4.3-11.0 Estimat Glomerular Filtration Rate November 20, 2012 8:17pm > 60 - INR International Normalized Ratio June 26, 2012 9:38pm 1.1 N 0.8-1.4 Urine RBC (Auto) November 20, 2012 8:27pm NEGATIVE - INR Comment August 20, 2012 10:58pm 1.1 N 0.8-1.4 Procedures Procedure Code Date VENOUS CATHETERIZATION NEC 38.93 Gram Stain 06/26/12 Encounters Encounter Location Date/Time Discharged Inpatient [facility] 10:00pm Departed Emergency Room [facility] 4:27pm
--- OUTSIDE RECORDS SUMMARY | 2018-03-07 07:54 | XMS REPORT ---
Author Author TRISHA ARRIAGA Organization [facility] [address] Address [address] [place] [address] Care Team Providers Care Forge Shop Machine Repairer Name Role Phone TRISHA ARRIAGA Unavailable PROBLEMS Type Condition ICD9-CM Code LGG56-EC Code Onset Dates Condition Status SNOMED Code Problem Personal history of venous thrombosis and embolism V12.51 Active 912325338 Problem Crohn''s disease without complication, unspecified gastrointestinal tract location K50.90 Active 99001192 Problem Chronic deep vein thrombosis (DVT) of femoral vein of left lower extremity I82.512 Active 901235307459283 Problem Unspecified peripheral vascular disease 443.9 Active 074037891 Problem Unspecified essential hypertension 401.9 Active 68629844 Problem Essential hypertension I10 Active 95755882 Problem Mild intermittent asthma without complication J45.20 Active [id number] ALLERGIES Substance Reaction Event Type Date Status Alupent Unknown Drug Allergy Oct, Active Morphine Unknown Drug Allergy Oct, Active Penicillins Unknown Non Drug Allergy Oct, Active Heparin Analogues Puts pt in ICU. Non Drug Allergy Oct, Active ENCOUNTERS Encounter Location Date Diagnosis [facility] [address] [place] [address] 20 Nov, 2017 Crohn''s disease without complication, unspecified gastrointestinal tract location K50.90 ; Chronic deep vein thrombosis (DVT) of femoral vein of left lower extremity I82.512 ; Essential hypertension I10 and Vitamin B12 deficiency E53.8 [id number] [address] [place] [address] 15 Nov, 2017 Hypokalemia E87.6 [facility] [address] [place] [address] 13 Nov, 2017 Non- healing wound of lower extremity, left, sequela S81.802S [facility] [address] [place] [address] 10 Nov, 2017 Vitamin B12 deficiency E53.8 [facility] [address] [address] [place] [address] Oct, Crohn''s disease without complication, unspecified gastrointestinal tract location K50.90 [facility] [address] [place] [phone] Oct, Crohn''s disease of small and large intestines with complication K50.819 [facility] [address] [place] [address] Oct, [facility] [address] [place] [phone] Oct, Crohn''s disease of small and large intestines with complication K50.819 ; Essential hypertension I10 and Chronic deep vein thrombosis (DVT) of femoral vein of left lower extremity I82.512 [facility] [address] [address] Oct, [facility] [address] [address] Jan, Crohn''s disease without complication, unspecified gastrointestinal tract location K50.90 and Vitamin B12 deficiency E53.8 [facility] [address] [place] [address] Dec, Crohn''s disease without complication, unspecified gastrointestinal tract location K50.90 ; Essential hypertension I10 and Vitamin B12 deficiency E53.8 [facility] [address] [place] [address] Dec, Crohn''s disease without complication, unspecified gastrointestinal tract location K50.90 ; Essential hypertension I10 ; Mild intermittent asthma without complication J45.20 ; Community acquired pneumonia of left lower lobe of lung J18.1 ; Sinus tachycardia R00.0 and Vitamin B12 deficiency E53.8 [place] [id number] [address] Jun, [facility] [id number] [address] Jun, [place] [id number] [address] Jan, [facility] [address] [facility] [id number] [place] [address] Jan, [facility] [address] [facility] [id number] [address] Jan, IMMUNIZATIONS No Known Immunizations SOCIAL HISTORY Never Assessed REASON FOR VISIT Hospital f/u [facility]- blood clot and low potassium Alessandro Stephenson RN PLAN OF CARE Activity Details Follow Up 1 Week Reason:repaet labs Pending Test CMP Pending Test MAGNESIUM SERUM VITAL SIGNS Height 79 in 2017-10-31 Weight 315.4 lbs 2017-10-31 Temperature 97.8 degrees Fahrenheit 2017-10-31 Heart Rate 107 bpm 2017-10-31 Respiratory Rate 20 2017-10-31 BMI 35.53 kg/m2 2017-10-31 Blood pressure systolic 150 mmHg 2017-10-31 Blood pressure diastolic 92 mmHg 2017-10-31 MEDICATIONS Medication Instructions Dosage Frequency Start Date End Date Duration Status Calcium Citrate +D 315-250 MG-UNIT Orally Twice a day 1 tablet 12h Active Advair Diskus 250-50 MCG/DOSE Inhalation Twice a day 1 puff 12h Dec, Active Eliquis 5 mg Orally 2 times a day 1 tablet 12h Active Losartan Potassium 50 mg Orally Once a day 1 tablet 24h Oct, 30 day(s) Active Magnesium Oxide 250 MG Orally Once a day 1 tablet as needed 24h Active Potassium Chloride 20 mEq take 1 tablet (20 meq) by oral route once daily with food Jan, Active Mercaptopurine 50 MG Orally Once a day 1 tablet 24h Active Vitamin B 12 Active RESULTS No Results PROCEDURES Procedure Date Ordered Result Body Site ROUTINE VENIPUNCTURE 2017-10-31 N/A LAB NOT BILLED BY [facility] Oct 31, 2017 [facility] VISIT ESTABLISHED PATIENT Oct 31, 2017 INSTRUCTIONS MEDICATIONS ADMINISTERED No Known Medications MEDICAL (GENERAL) HISTORY Type Description Date Medical History Crohns Disease Medical History Asthma Medical History Vitamin B12 deficiency Medical History Tachycardia Medical History [place] Filter Placement Surgical History multiple abdominal surgeries [id number] Surgical History appendectomy Surgical History cholysystectomy Surgical History bowel resections x6 Hospitalization History surgery Hospitalization History pneumonia 12/2016 Hospitalization History blood clot in LLE and low potassium levels 10/2017
--- OUTSIDE RECORDS SUMMARY | 2018-03-07 07:55 | XMS REPORT | Continuity of Care Document ---
Author Author [facility] Address Unknown Phone Unavailable Allergies Active Description Code Type Severity Reaction Onset Reported/Identified Relationship to Patient Clinical Status Yes Alupent Drug Allergy N/A N/A 02/20/2013 Yes Heparin Analogues Drug Allergy N/A N/A 02/20/2013 Yes morphine Drug Allergy N/A N/A 02/20/2013 Yes Penicillins Drug Allergy N/A N/A 02/20/2013 Yes Heparin Analogues [id number] Drug Allergy Unknown N/A 08/29/2013 Yes metaproterenol sulfate [id number] Drug Allergy Unknown N/A 08/29/2013 Yes morphine [id number] Drug Allergy Unknown N/A 08/29/2013 Yes Penicillins [id number] Drug Allergy Unknown N/A 08/29/2013 Medications There is no data. Problems Date Dx Coded Attending Type Code Diagnosis Diagnosed By 03/13/2012 Ot 346.90 MIGRAINE UNSPECIFIED W/O INTRACT MGRN W/ 03/13/2012 Ot 453.51 CHRON VENOUS EMBOLISM THROMBOSIS DEEP 03/13/2012 Ot 729.5 PAIN IN LIMB 03/13/2012 Ot V58.69 OTH MED,LT, CURRENT USE 06/24/2012 Ot 453.40 ACUTE VENOUS EMBOLISM THROMBOSIS UNSP 06/24/2012 Ot 729.81 SWELLING OF LIMB 06/27/2012 Ot 276.8 HYPOPOTASSEMIA 06/27/2012 Ot 493.92 ASTHMA, UNSPECIFIED, W (ACUTE) EXACERBAT 06/27/2012 Ot 786.2 COUGH 07/08/2012 Ot 493.90 ASTHMA, UNSPECIFIED 07/08/2012 Ot 786.2 COUGH 08/22/2012 ALINE SCOTT DO Ot 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 08/22/2012 ALINE SCOTT DO Ot 453.41 ACUTE VENOUS EMBOLISM THROMBOSIS DEEP 08/22/2012 ALINE SCOTT DO Ot 493.90 ASTHMA, UNSPECIFIED 08/22/2012 GELLENDER DO, ALINE A Ot 555.9 REGIONAL ENTERITIS NOS 08/22/2012 TYLER SIMEON ALINE Walsh Ot V12.54 PERSONAL HX OF TIA, CEREBRAL INFARCTION 11/29/2012 LUIS F CHERY MD Ot 275.41 HYPOCALCEMIA 11/29/2012 LUIS F CHERY MD Ot 276.8 HYPOPOTASSEMIA 11/29/2012 LUIS F CHERY MD Ot 459.81 VENOUS INSUFFICIENCY NOS 11/29/2012 LUIS F CHERY MD Ot 493.90 ASTHMA, UNSPECIFIED 11/29/2012 LUIS F CHERY MD Ot 555.9 REGIONAL ENTERITIS NOS 11/29/2012 LUIS F CHERY MD Ot V12.51 HX-VENOUS THROMBOSIS EMBOLISM 11/29/2012 LUIS F CHERY MD Ot V13.01 PERSONAL HISTORY OF URINARY CALCULI 12/24/2012 SITA ESTRADA, MELISSA Walsh Ot 493.92 ASTHMA, UNSPECIFIED, W (ACUTE) EXACERBAT 12/24/2012 MELISSA BUCKNER MD Ot 786.05 SHORTNESS OF BREATH 02/12/2013 ICERA ESTRADA, EDGAR Oswald Ot 275.2 DIS MAGNESIUM METABOLISM 02/12/2013 EDGAR VANG MD Ot 276.8 HYPOPOTASSEMIA 02/12/2013 EDGAR VANG MD Ot 280.9 IRON DEFIC ANEMIA NOS 02/12/2013 CIERA ESTRADA, EDGAR Oswald Ot 285.29 ANEMIA OF OTHER CHRONIC DISEASE 02/12/2013 CIERA ESTRADA, EDGAR Oswald Ot 289.81 PRIMARY HYPERCOAGULABLE STATE 02/12/2013 EDGAR VANG MD Ot 401.9 HYPERTENSION NOS 02/12/2013 EDGAR VANG MD Ot 412 OLD MYOCARDIAL INFARCT 02/12/2013 EDGAR VANG MD Ot 414.01 CORONARY ATHEROSCLEROSIS OF [place] CORON 02/12/2013 EDGAR VANG MD Ot 428.0 CONGESTIVE HEART FAILURE NOS 02/12/2013 EDGAR VANG MD Ot 496 CHR AIRWAY OBSTRUCT NEC 02/12/2013 EDGAR VANG MD Ot 555.9 REGIONAL ENTERITIS NOS 02/12/2013 EDGAR VANG MD Ot 723.1 CERVICALGIA 02/12/2013 EDGAR VANG MD Ot 729.5 PAIN IN LIMB 02/12/2013 EDGAR VANG MD Ot 782.3 EDEMA 02/12/2013 EDGAR VANG MD Ot 784.0 HEADACHE 02/12/2013 EDGAR VANG MD Ot 786.05 SHORTNESS OF BREATH 02/12/2013 EDGAR VANG MD Ot 786.50 CHEST PAIN NOS 02/12/2013 EDGAR VANG MD Ot 787.91 DIARRHEA 02/12/2013 EDGAR VANG MD Ot V12.51 HX-VENOUS THROMBOSIS EMBOLISM 02/12/2013 EDGAR VANG MD Ot V12.55 PERSONAL HISTORY OF PULMONARY EMBOLISM 02/20/2013 SANTOSH GONZALEZ DO K 401.9 UNSPECIFIED ESSENTIAL HYPERTENSION 02/20/2013 SANTOSH GONZALEZ DO K 443.9 PERIPHERAL VASCULAR DISEASE UNSPECIFIED 02/20/2013 SANTOSH GONZALEZ DO K V12.51 PERSONAL HISTORY OF VENOUS THROMBOSIS AND EMBOLISM 03/06/2013 DEMI ESTRADA FACC, ALI FACP CCDS Ot 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 03/06/2013 DEMI ESTRADA FACC, ALI FACP CCDS Ot 278.00 OBESITY, NOS 03/06/2013 DEMI ESTRADA FACC, ALI FACP CCDS Ot 285.9 ANEMIA NOS 03/06/2013 DEMI ESTRADA FACC, ALI FACP CCDS Ot 289.81 PRIMARY HYPERCOAGULABLE STATE 03/06/2013 DEMI ESTRADA FACC, ALI FACP CCDS Ot 401.9 HYPERTENSION NOS 03/06/2013 DEMI ESTRADA FACC, ALI FACP CCDS Ot 414.01 CORONARY ATHEROSCLEROSIS OF [place] CORON 03/06/2013 DEMI ESTRADA FACC, ALI FACP CCDS Ot 453.50 CHRONIC VENOUS EMBOLISM THROMBOSIS UNS 03/06/2013 DEMI ESTRADA FACC, ALI FACP CCDS Ot 555.9 REGIONAL ENTERITIS NOS 03/06/2013 DEMI ESTRADA FACC, ALI FACP CCDS Ot 786.59 CHEST PAIN NEC 03/06/2013 DEMI ESTRADA FACC, ALI FACP CCDS Ot V45.82 PERCUTANEOUS TRANSLUM CORON ANGIOPLASTY 03/06/2013 DEMI ESTRADA FACC, ALI FACP CCDS Ot V58.69 OT MED,LT,CURRENT USE 03/06/2013 DEMI ESTRADA FACC ALI FACP CCDS Ot V85.37 BODY MASS INDEX 37.0-37.9, ADULT 03/31/2013 KARO COX DO Ot 276.51 DEHYDRATION 03/31/2013 KARO COX DO K Ot 276.8 HYPOPOTASSEMIA 03/31/2013 ALANNA COX DONico Perla Ot 487.1 FLU W RESP MANIFEST NEC 06/10/2013 MEGAN ROMERO N Ot 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 06/10/2013 HEATHERMEGAN N Ot 285.9 ANEMIA NOS 06/10/2013 MEGAN ROMERO N Ot 401.9 HYPERTENSION NOS 06/10/2013 MEGAN ROMERO N Ot 555.9 REGIONAL ENTERITIS NOS 06/10/2013 MEGAN ROMERO Ot V12.51 HX-VENOUS THROMBOSIS EMBOLISM 06/10/2013 MEGAN ROMERO Ot V12.55 PERSONAL HISTORY OF PULMONARY EMBOLISM 06/10/2013 MEGAN ROMERO Ot V58.69 OTH MED,LT,CURRENT USE 08/04/2013 KACEY VO APRN Ot 453.41 ACUTE VENOUS EMBOLISM THROMBOSIS DEEP 08/04/2013 KACEY VO APRN Ot 729.81 SWELLING OF LIMB 08/04/2013 KACEY VO APRN Ot V58.61 ANTICOAGULANTS,LT,CURRENT USE 08/19/2013 KATHERINE ZELAYA MD Ot 453.40 ACUTE VENOUS EMBOLISM THROMBOSIS UNSP 08/19/2013 KATHERINE ZELAYA MD Ot 454.1 LEG VARICOSITY W INFLAM 08/28/2013 KACEY VO APRN Ot 453.40 ACUTE VENOUS EMBOLISM THROMBOSIS UNSP 08/29/2013 BROOKE KARO Ot 473.9 CHRONIC SINUSITIS NOS 08/29/2013 BROOKE KARO Ot 491.22 OBSTRUCTIVE CHRONIC BRONCHITIS WITH ACUT 08/29/2013 BROOKE KARO Ot 786.05 SHORTNESS OF BREATH 08/29/2013 BROOKE KARO Ot V12.51 HX-VENOUS THROMBOSIS EMBOLISM 08/29/2013 BROOKE KARO Ot V12.55 PERSONAL HISTORY OF PULMONARY EMBOLISM 08/29/2013 BROOKE KARO Ot V58.69 OTH MED,LT,CURRENT USE 10/16/2013 MEGAN ROMERO Ot 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 10/16/2013 MEGAN ROMERO N Ot 285.9 ANEMIA NOS 10/16/2013 MEGAN ROMERO N Ot 401.9 HYPERTENSION NOS 10/16/2013 HEATHER, BOBAN N Ot 555.9 REGIONAL ENTERITIS NOS 10/16/2013 MEGAN ROMERO N Ot V12.51 HX-VENOUS THROMBOSIS EMBOLISM 10/16/2013 IVÁN ROMEROAN N Ot V12.55 PERSONAL HISTORY OF PULMONARY EMBOLISM 10/16/2013 MEGAN ROMERO N Ot V58.69 OT MED,LT,CURRENT USE 2014 CM ESTRADA, TORY Ot 780.79 2014 CM ESTRADA, TORY Ot 786.09 2014 CM ESTRADA, TORY Ot 786.50 2014 TORY PABON MD Ot V12.51 2014 MAN JUNG S BUILDING CARPENTER Ot 266.2 2014 MAN JUNG S BUILDING CARPENTER Ot 285.9 2014 JUNG, HILAH S BUILDING CARPENTER Ot 401.9 2014 JUNGSONYAAH S BUILDING CARPENTER Ot 555.9 2014 JUNGSONYAAH S BUILDING CARPENTER Ot V12.51 2014 JUNG HILAH S BUILDING CARPENTER Ot V12.55 2014 JUNGMAN S BUILDING CARPENTER Ot V58.69 2014 HEATHER, BOBAN N Ot 285.9 2014 HEATHER, BOBAN N Ot 451.2 2014 HEATHER, BOBAN N Ot 453.2 2014 HEATHER, BOBAN N Ot 457.1 2014 HEATHER, BOBAN N Ot 266.2 2014 HEATHER, BOBAN N Ot 285.9 2014 HEATHER, BOBAN N Ot 401.9 2014 HEATHER, BOBAN N Ot 555.9 2014 HETAHER, BOBAN N Ot V12.51 2014 HEATHER, BOBAN N Ot V12.55 2014 HEATHER, BOBAN N Ot V58.69 01/22/2015 DEMI ESTRADA FAC, ALI FACP CCDS Ot I10 01/22/2015 DEMI ESTRADA FAC, ALI FACP CCDS Ot I82.409 01/22/2015 DEMI ESTRADA FAC, ALI FACP CCDS Ot R00.2 01/22/2015 DEMI ESTRADA [facility], [facility] CCDS Ot Z79.01 01/22/2015 DEMI ESTRADA [facility], [facility] CCDS Ot Z79.899 02/11/2015 HEATHER, BOBAN N Ot 266.2 02/11/2015 HEATHER, BOBAN N Ot 285.9 02/11/2015 HEATHER, BOBAN N Ot 401.9 02/11/2015 HEATHER, BOBAN N Ot 555.9 02/11/2015 HEATHER, BOBAN N Ot V12.51 02/11/2015 HEATHER, BOBAN N Ot V12.55 02/11/2015 HEATHER, BOBAN N Ot V58.69 02/11/2015 HEATHER, BOBAN N Ot 266.2 02/11/2015 HEATHER, BOBAN N Ot 285.9 02/11/2015 HEATHER, BOBAN N Ot 401.9 02/11/2015 HEATHER, BOBAN N Ot 555.9 02/11/2015 HEATHER, BOBAN N Ot V12.51 02/11/2015 HEATHER, BOBAN N Ot V12.55 02/11/2015 HEATHER, BOBAN N Ot V58.69 03/26/2015 HEATHER, BOBAN N Ot 266.2 03/26/2015 HEATHER, BOBAN N Ot 285.9 03/26/2015 HEATHER, BOBAN N Ot 401.9 03/26/2015 HEATHER, BOBAN N Ot 555.9 03/26/2015 HEATHER, BOBAN N Ot V12.51 03/26/2015 HEATHER, BOBAN N Ot V12.55 03/26/2015 HEATHER, BOBAN N Ot V58.69 11/10/2015 HEATHER, BOBAN N Ot 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 11/10/2015 HEATHER, BOBAN N Ot 285.9 ANEMIA NOS 11/10/2015 HEATHER, BOBAN N Ot 401.9 HYPERTENSION NOS 11/10/2015 HEATHER, BOBAN N Ot 555.9 REGIONAL ENTERITIS NOS 11/10/2015 HEATHER, BOBAN N Ot V12.51 HX-VENOUS THROMBOSIS EMBOLISM 11/10/2015 HEATHER, BOBAN N Ot V12.55 PERSONAL HISTORY OF PULMONARY EMBOLISM 11/10/2015 HEATHER, BOBAN N Ot V58.69 OTH MED,LT,CURRENT USE 11/18/2015 MEGAN ROMERO N Ot 266.2 11/18/2015 HEATHERMEGAN N Ot 285.9 11/18/2015 HEATHERMEGAN N Ot 401.9 11/18/2015 HEATHERMEGAN N Ot 555.9 11/18/2015 HEATHERMEGAN PIRES N Ot V12.51 11/18/2015 HEATHERMEGAN N Ot V12.55 11/18/2015 HEATHERMEGAN N Ot V58.69 12/18/2015 HEATHERMEGAN N Ot D64.9 ANEMIA, UNSPECIFIED 12/18/2015 HEATHERMEGAN N Ot E53.8 DEFICIENCY OF OTHER SPECIFIED B GROUP 12/18/2015 HEATHERMEGAN PIRES N Ot I10 ESSENTIAL (PRIMARY) HYPERTENSION 12/18/2015 HEATHERIVÁNAN N Ot K50.90 CROHN'S DISEASE, UNSPECIFIED, WITHOUT CO 12/18/2015 HEATHER, IVÁNAN N Ot Z79.899 OTHER ASSISTED (CURRENT) DRUG THERAPY 02/15/2016 HEATHERMEGAN PIRES N Ot D64.9 ANEMIA, UNSPECIFIED 02/15/2016 HEATHER, MEGAN N Ot E53.8 DEFICIENCY OF OTHER SPECIFIED B GROUP 02/15/2016 HEATHER, BOBARCHIE N Ot I10 ESSENTIAL (PRIMARY) HYPERTENSION 02/15/2016 HEATHER, BOBAN N Ot K50.90 CROHN'S DISEASE, UNSPECIFIED, WITHOUT CO 02/15/2016 HEATHER, BOBAN N Ot Z79.899 OTHER PIPEMAN (CURRENT) DRUG THERAPY 02/16/2016 HEATHERMEGAN N Ot D64.9 ANEMIA, UNSPECIFIED 02/16/2016 HEATHERMEGAN N Ot E53.8 DEFICIENCY OF OTHER SPECIFIED B GROUP 02/16/2016 HEATHER, BOBAN N Ot I10 ESSENTIAL (PRIMARY) HYPERTENSION 02/16/2016 HEATHER, BOBAN N Ot K50.90 CROHN'S DISEASE, UNSPECIFIED, WITHOUT CO 02/16/2016 HEATHER, BOBAN N Ot Z79.899 OTHER ASSISTED (CURRENT) DRUG THERAPY 11/09/2016 CM ESTRADA, TORY Ot 780.79 OTH MALAISE FATIGUE 11/09/2016 CM ESTRADA, TORY Ot 786.09 RESPIRATORY ABNORM NEC 11/09/2016 TORY PABON MD Ot 786.50 CHEST PAIN NOS 11/09/2016 TORY PABON MD Ot V12.51 HX-VENOUS THROMBOSIS EMBOLISM 11/09/2016 MAN JUNG BUILDING CARPENTER Ot 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 11/09/2016 MAN JUNG BUILDING CARPENTER Ot 285.9 ANEMIA NOS 11/09/2016 MAN JUNG BUILDING CARPENTER Ot 401.9 HYPERTENSION NOS 11/09/2016 MAN JUNG BUILDING CARPENTER Ot 555.9 REGIONAL ENTERITIS NOS 11/09/2016 MAN JUNG BUILDING CARPENTER Ot V12.51 HX-VENOUS THROMBOSIS EMBOLISM 11/09/2016 MAN JUNG BUILDING CARPENTER Ot V12.55 PERSONAL HISTORY OF PULMONARY EMBOLISM 11/09/2016 MAN JUNG BUILDING CARPENTER Ot V58.69 OTH MED,LT,CURRENT USE 11/09/2016 MEGAN ROMERO Ot 285.9 ANEMIA NOS 11/09/2016 MEGAN ROMERO Ot 451.2 THROMBOPHLEBITIS LEG NOS 11/09/2016 MEGAN ROMERO Ot 453.2 OTHER VENOUS EMBOLISM AND THROMBOSIS OF 11/09/2016 MEGAN ROMERO Ot 457.1 OTHER LYMPHEDEMA 11/09/2016 DEMI ARMENTA, EZ FACP CCDS Ot I10 ESSENTIAL (PRIMARY) HYPERTENSION 11/09/2016 DEMI ARMENTA, EZ FACP CCDS Ot I82.409 ACUTE EMBOLISM AND THOMBOS UNSP DEEP VN 11/09/2016 DEMI ESTRADA FACC, EZ FACP CCDS Ot R00.2 PALPITATIONS 11/09/2016 DEMI ESTRADA FACC, EZ FACP CCDS Ot Z79.01 PIPEMAN (CURRENT) USE OF ANTICOAGULANT 11/09/2016 DEMI ESTRADA FACC, EZ FACP CCDS Ot Z79.899 OTHER ASSISTED (CURRENT) DRUG THERAPY 11/09/2016 MEGAN ROMERO Ot D64.9 ANEMIA, UNSPECIFIED 11/09/2016 MEGAN ROMERO Ot E53.8 DEFICIENCY OF OTHER SPECIFIED B GROUP 11/09/2016 MEGAN ROMERO Ot I10 ESSENTIAL (PRIMARY) HYPERTENSION 11/09/2016 MEGAN ROMERO Ot K50.90 CROHN'S DISEASE, UNSPECIFIED, WITHOUT CO 11/09/2016 MEGAN ROMERO Ot Z79.899 OTHER ASSISTED (CURRENT) DRUG THERAPY 11/23/2016 MEGAN ROMERO N Ot D64.9 ANEMIA, UNSPECIFIED 11/23/2016 MEGAN ROMERO N Ot E53.8 DEFICIENCY OF OTHER SPECIFIED B GROUP 11/23/2016 MEGAN ROMERO N Ot I10 ESSENTIAL (PRIMARY) HYPERTENSION 11/23/2016 MEGAN ROMERO N Ot K50.90 CROHN'S DISEASE, UNSPECIFIED, WITHOUT CO 11/23/2016 MEGAN ROMERO Edison Ot Z79.899 OTHER ASSISTED (CURRENT) DRUG THERAPY 11/23/2016 CM ESTRADA, TORY Ot 780.79 OTH MALAISE FATIGUE 11/23/2016 CM ESTRADA, TORY Ot 786.09 RESPIRATORY ABNORM NEC 11/23/2016 CM ESTRADA, TORY Ot 786.50 CHEST PAIN NOS 11/23/2016 TORY PABON MD Ot V12.51 HX-VENOUS THROMBOSIS EMBOLISM 11/23/2016 MAN JUNG BUILDING CARPENTER Ot 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 11/23/2016 MAN JUNG BUILDING CARPENTER Ot 285.9 ANEMIA NOS 11/23/2016 MAN JUNG S BUILDING CARPENTER Ot 401.9 HYPERTENSION NOS 11/23/2016 MAN JUNG BUILDING CARPENTER Ot 555.9 REGIONAL ENTERITIS NOS 11/23/2016 MAN JUNG BUILDING CARPENTER Ot V12.51 HX-VENOUS THROMBOSIS EMBOLISM 11/23/2016 MAN JUNG BUILDING CARPENTER Ot V12.55 PERSONAL HISTORY OF PULMONARY EMBOLISM 11/23/2016 MAN JUNG BUILDING CARPENTER Ot V58.69 OTH MED,LT,CURRENT USE 11/23/2016 MEGAN ROMERO N Ot 285.9 ANEMIA NOS 11/23/2016 MEGAN ROMERO N Ot 451.2 THROMBOPHLEBITIS LEG NOS 11/23/2016 HEATHER IVÁNARCHIE N Ot 453.2 OTHER VENOUS EMBOLISM AND THROMBOSIS OF 11/23/2016 HEATHER MEGAN N Ot 457.1 OTHER LYMPHEDEMA 11/23/2016 DEMI ESTRADA FAC, EZ ARMENTAP CCDS Ot I10 ESSENTIAL (PRIMARY) HYPERTENSION 11/23/2016 DEMI ESTRADA FACC, ALI ADRIAN CCDS Ot I82.409 ACUTE EMBOLISM AND THOMBOS UNSP DEEP VN 11/23/2016 DEMI ESTRADA [facility], [facility] CCD[facility] Ot R00.2 PALPITATIONS 11/23/2016 DEMI ESTRADA [facility], EZ [facility] CCDS Ot Z79.01 ASSISTED (CURRENT) USE OF ANTICOAGULANT 11/23/2016 DEMI ESTRADA [facility], [facility] Ot Z79.899 OTHER PIPEMAN (CURRENT) DRUG THERAPY 11/23/2016 MEGAN ROMERO Ot D64.9 ANEMIA, UNSPECIFIED 11/23/2016 MEGAN ROMERO Ot E53.8 DEFICIENCY OF OTHER SPECIFIED B GROUP 11/23/2016 MEGAN ROMERO Ot I10 ESSENTIAL (PRIMARY) HYPERTENSION 11/23/2016 MEGAN ROMERO Ot K50.90 CROHN'S DISEASE, UNSPECIFIED, WITHOUT CO 11/23/2016 MEGAN ROMERO Ot Z79.899 OTHER ASSISTED (CURRENT) DRUG THERAPY 01/26/2018 JAYY SINGH K50.919 Crohn's disease, unspecified, with unspecified complications 03/07/2018 TORY PABON MD Ot 780.79 OTH MALAISE FATIGUE 03/07/2018 TORY PABON MD Ot 786.09 RESPIRATORY ABNORM NEC 03/07/2018 TORY PABON MD Ot 786.50 CHEST PAIN NOS 03/07/2018 TORY PABON MD Ot V12.51 HX-VENOUS THROMBOSIS EMBOLISM 03/07/2018 MAN JUNG BUILDING CARPENTER Ot 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 03/07/2018 MAN JUNG BUILDING CARPENTER Ot 285.9 ANEMIA NOS 03/07/2018 MAN JUNG BUILDING CARPENTER Ot 401.9 HYPERTENSION NOS 03/07/2018 MAN JUNG BUILDING CARPENTER Ot 555.9 REGIONAL ENTERITIS NOS 03/07/2018 MAN JUNG BUILDING CARPENTER Ot V12.51 HX-VENOUS THROMBOSIS EMBOLISM 03/07/2018 MAN JUNG BUILDING CARPENTER Ot V12.55 PERSONAL HISTORY OF PULMONARY EMBOLISM 03/07/2018 MAN JUNG BUILDING CARPENTER Ot V58.69 OTH MED,LT,CURRENT USE 03/07/2018 MEGAN ROMERO Ot 285.9 ANEMIA NOS 03/07/2018 MEGAN ROMERO Ot 451.2 THROMBOPHLEBITIS LEG NOS 03/07/2018 MEGAN ROMERO Ot 453.2 OTHER VENOUS EMBOLISM AND THROMBOSIS OF 03/07/2018 MEGAN ROMERO Ot 457.1 OTHER LYMPHEDEMA 03/07/2018 DEMI ESTRADA FACC, EZ [facility] I10 ESSENTIAL (PRIMARY) HYPERTENSION 03/07/2018 DEMI ESTRADA FACC, EZ FACP CCDS Ot I82.409 ACUTE EMBOLISM AND THOMBOS UNSP DEEP VN 03/07/2018 DEMI ESTRADA FACC, EZ FACP CCDS Ot R00.2 PALPITATIONS 03/07/2018 DEMI ESTRADA FACC, EZ [facility] Ot Z79.01 PIPEMAN (CURRENT) USE OF ANTICOAGULANT 03/07/2018 DEMI ESTRADA FACC, EZ [facility] Ot Z79.899 OTHER PIPEMAN (CURRENT) DRUG THERAPY 03/07/2018 MEGAN ROMERO Ot D64.9 ANEMIA, UNSPECIFIED 03/07/2018 MEGAN ROMERO Ot E53.8 DEFICIENCY OF OTHER SPECIFIED B GROUP 03/07/2018 MEGAN ROMERO Ot I10 ESSENTIAL (PRIMARY) HYPERTENSION 03/07/2018 MEGAN ROMERO Ot K50.90 CROHN'S DISEASE, UNSPECIFIED, WITHOUT CO 03/07/2018 MEGAN ROMERO Ot Z79.899 OTHER PIPEMAN (CURRENT) DRUG THERAPY Procedures Code Description Performed By Performed On 38.93 VENOUS CATHETERIZATION NEC 11/20/2012 Results Test Result Range [facility] - 01/25/17 09:45 GLUCOSE 133 mg/dL 65-99 UREA NITROGEN (BUN) 15 mg/dL 7-25 CREATININE 1.08 mg/dL 0.70-1.33 eGFR NON-AFR. [place] 77 mL/min/1.73m2 > OR=60 eGFR 90 mL/min/1.73m2 > OR=60 BUN/CREATININE RATIO NOT APPLICABLE (calc) 6-22 SODIUM 139 mmol/L 135-146 POTASSIUM 4.1 mmol/L 3.5-5.3 CHLORIDE 103 mmol/L 98-110 CARBON DIOXIDE 26 mmol/L 20-31 CALCIUM 8.8 mg/dL 8.6-10.3 VITAMIN B12 - 01/25/17 09:45 VITAMIN B12 947 pg/mL 200-1100 MAGNESIUM SERUM - 11/03/17 16:09 MAGNESIUM 1.3 mg/dL 1.5-2.5 MAGNESIUM SERUM - 11/10/17 11:32 MAGNESIUM 1.1 mg/dL 1.5-2.5 MAGNESIUM SERUM - 12/05/17 11:18 MAGNESIUM 1.1 mg/dL 1.5-2.5 ESR/SED RATE - 12/08/17 17:48 SED RATE BY MODIFIED WESTERGREN 19 mm/h < OR=20 CRP - 12/08/17 17:48 C-REACTIVE PROTEIN 15.4 mg/L <8.0 A1C - 12/15/17 12:56 HEMOGLOBIN A1c 5.6 % of total Hgb <5.7 VITAMIN B12 - 12/15/17 12:57 VITAMIN B12 350 pg/mL 200-1100 BMP - 01/09/18 12:39 GLUCOSE 107 mg/dL 65-139 UREA NITROGEN (BUN) 14 mg/dL 7-25 CREATININE 0.91 mg/dL 0.70-1.33 eGFR NON-AFR. [place] 95 mL/min/1.73m2 > OR=60 eGFR 110 mL/min/1.73m2 > OR=60 BUN/CREATININE RATIO NOT APPLICABLE (calc) 6-22 SODIUM 142 mmol/L 135-146 POTASSIUM 3.2 mmol/L 3.5-5.3 CHLORIDE 106 mmol/L 98-110 CARBON DIOXIDE 29 mmol/L 20-32 CALCIUM 8.2 mg/dL 8.6-10.3 Encounters ACCT No. Visit Date/Time Discharge Status Pt. Type Provider Facility Loc./Unit Complaint [id number] 02/20/2013 12:39:00 02/20/2013 23:59:59 [place] [id number] 12/15/2017 11:40:00 12/15/2017 23:59:59 [facility] [address] [id number] 01/09/2018 11:40:00 Document Registration [id number] 12/15/2017 11:40:00 Document Registration [id number] 12/08/2017 17:00:00 Document Registration [id number] 12/05/2017 11:00:00 Document Registration [id number] 11/10/2017 11:20:00 Document Registration [id number] 11/03/2017 15:40:00 Document Registration [id number] 01/25/2017 09:00:00 Document Registration [id number] 02/16/2016 00:08:00 02/16/2016 23:59:59 CLS Preadmit MEGAN ROMERO [facility] ONC [id number] 11/17/2015 08:59:00 02/15/2016 00:01:00 DIS Outpatient MEGAN ROMERO [facility] ONC [id number] 2014 08:46:00 2014 23:59:59 CLS Outpatient DEMI ESTRADA FACC, EZ CAMP[place]LL CCDS [facility] CATH PALPITATIONS [id number] 09/07/2013 10:36:00 10/16/2013 00:01:00 DIS Outpatient MEGAN ROMERO [facility] ONC [id number] 09/03/2013 10:05:00 09/03/2013 23:59:59 CLS Outpatient MEGAN ROMERO [facility] RAD LYMPHEDEMA, THROMBOPHLEBETIS [id number] 08/29/2013 20:17:00 08/29/2013 22:28:00 DIS Emergency KARO COX DO K [facility] ER SOA [id number] 08/15/2013 12:00:00 08/28/2013 10:37:00 DIS Outpatient KACEY VO APRN [facility] WOUNDCARE DVT [id number] 08/19/2013 10:54:00 08/19/2013 13:01:00 DIS Emergency KATHERINE ZELAYA MD [facility] ER BLOOD CLOT IN LEFT LEG [id number] 08/04/2013 20:57:00 08/04/2013 22:32:00 DIS Emergency KACEY OV LOAD PLANNER [facility] ER LEFT LEG PAIN [id number] 05/23/2013 10:41:00 06/10/2013 00:01:00 DIS Outpatient MEGAN ROMERO [facility] ONC [id number] 04/09/2013 13:35:00 04/09/2013 23:59:59 CLS Outpatient MAN JUNG [facility] ONC [id number] 03/31/2013 00:10:00 03/31/2013 01:40:00 DIS Emergency BROOKE DO, KARO K [facility] ER POSS FLU,MAY BE DEHYDRATED [id number] 03/30/2013 16:59:00 03/30/2013 23:59:59 CLS Outpatient [id number] 03/06/2013 06:53:00 03/06/2013 15:00:00 DIS Outpatient DEMI ESTRADA FACC, EZ CAMPBELL CCDS [facility] CATH CP,SOB,HTN [id number] 02/16/2013 11:53:00 02/16/2013 23:59:59 CLS Outpatient TORY PABON MD [facility] CARD CP [id number] 02/10/2013 23:10:00 02/12/2013 15:30:00 DIS Inpatient EDGAR VANG MD [facility] CSD CHEST PAIN;HTN; HYPOKALEMIA;HYPOKALEMIA [id number] 12/24/2012 19:32:00 12/24/2012 20:39:00 DIS Emergency MELISSA BUCKNER MD [facility] ER ASTHMA FLARE UP [id number] 11/20/2012 22:00:00 11/29/2012 16:10:00 DIS Inpatient LUIS F CHERY MD [facility] SURGICAL SMALL BOWEL OBSTRUCTION [id number] 08/21/2012 02:46:00 08/22/2012 18:45:00 DIS Inpatient TYLER DO ALINE A [facility] 4TH LEFT LEG DVT [id number] 03/07/2018 07:16:00 ACT Outpatient DEMI ESTRADA FACC, EZ CAMPBELL CCDS [facility] CATH PALPITATIONS,HTN,DVT [id number] 2014 08:44:00 Document Registration [id number] 2014 08:44:00 Document Registration [id number] 07/08/2012 16:27:00 Document Registration [id number] 03/12/2012 22:28:00 Document Registration [id number] 01/26/2018 10:46:00 01/26/2018 14:46:00 DIS Outpatient JAYY SINGH [id number] 12/15/2017 11:15:00 12/15/2017 23:59:59 [facility] Outpatient
--- NOTE | 2018-03-07 09:07 | Cardiac Procedure Note-CS/ASA ---
Pre-Procedure Note Pre-Op Procedure Note H&P Reviewed The H&P was reviewed, patient examined and no changes noted. Date H&P Reviewed: Mar 07, 2018 Time H&P Reviewed: 08:40 Conscious Sedation Pre-Proced Time 08:40 ASA Score 2 For ASA 3 and 4: Consider anesthesia and medical clearance. Also, for patients with a history of failed moderate sedation consider anesthesia. Airway Lungs Heart ASA score ASA 1: a normal healthy patient ASA 2: a patient with a mild systemic disease (mid diabetes, controlled hypertension, obesity ASA 3: a patient with a severe systemic disease that limits activity (angina , COPD, prior Myocardial infarction) ASA 4: a patient with an incapacitating disease that is a constant threat to life (CHF, renal failure) ASA 5: a moribund patient not expected to survive 24 hrs. (ruptured aneurysm) ASA 6: a declared brain patient whose organs are being harvested. For emergent operations, add the letter E after the classification Mallampati Classification Grade 2 Sedation Plan Analgesia, Amnesia, Plan communicated to team members, Discussed options with patient/fam, Discussed risks with patient/fam The patient is an appropriate candidate to undergo the planned procedure, sedation, and anesthesia. The patient immediately re-assessed prior to indication. EZ SIMMS MD FACP FAC CCDS Mar 07, 2018 09:07
--- NOTE | 2018-03-07 12:44 | OPERATIVE REPORT ---
DATE OF SERVICE: PREOPERATIVE DIAGNOSIS: Implantable loop recorder at end of life. POSTOPERATIVE DIAGNOSIS: Implantable loop recorder at end of life. PROCEDURE: Implantable loop recorder explantation. INDICATIONS: The patient is a 57-year-old man who had an implantable loop recorder that was implanted a few years ago. He has not demonstrated significant arrhythmia and the device is now at end of life and he wants it removed. DESCRIPTION OF PROCEDURE: [facility]. The left prepectoral area was prepared and draped in the usual sterile fashion. We used 1% lidocaine for local anesthetic over the site of implantation. We made a small incision just at the site of the medial edge of the device and we were able to be extract it from the pocket without significant difficulty. The wound was closed with a Vicryl 3.0. He tolerated the procedure well. Job ID: [id number] DocumentID: [id number] Dictated Date: 03/07/2018 10:05:20 Fashion Journalist Date: 03/07/2018 12:43:19 Dictated By: EZ SIMMS MD, MA, FACP, FACC,
== END 2018-03-07 09:04 | disposition home or self-care (01) ==
LOC: CATH 07:16
PROVIDERS: ATTEND Internal Medicine Cardiovascular Disease
DX: Z45.09 Encounter for adjustment and management of other cardiac device (principal); D50.9 Iron deficiency anemia, unspecified; I10 Essential (primary) hypertension; K50.90 Crohn's disease, unspecified, without complications; E66.9 Obesity, unspecified; Z68.36 Body mass index [BMI] 36.0-36.9, adult; Z86.718 Personal history of other venous thrombosis and embolism; Z86.711 Personal history of pulmonary embolism; Z79.01 Long term (current) use of anticoagulants; Z79.82 Long term (current) use of aspirin; Z79.899 Other long term (current) drug therapy
CPT/HCPCS: 33284